=== PATIENT | male | born 1955 | race American Indian/Alaskan Native ===

== ENCOUNTER 2019-08-01 19:27 | Inpatient (IN) | payer SELFPAY ==
--- NOTE | 2019-08-01 19:35 | Consultation ---
History of Present Illness Consult date: 08/01/19 History of present illness: 63 y/o man presents with right sided weakness and speech difficulty (expressive aphasia). Last reported well at 1830 as per at bedside. Emergent telestroke consult requested. CT head reviewed and case discussed with ED attending (Dr. Kenney) at the bedside. He does not take any meds. Patient's states the patient hasn't seen a physician "for a long time." Verbal Consent to tPA: by at 1945 I have explained to the patient/family the nature of the patients condition, the use of tPA fibrinolytic agent, and the benefits to be reasonably expected compared with alternative approaches. I have discussed the likelihood of major risks or complications of this procedure including (if applicable) but not limited to loss of limb function, brain damage, paralysis, hemorrhage, infection, complications from transfusion of blood components, drug reactions, blood clots and loss of life. I have also indicated that with any procedure there is always the possibility of an unexpected complication. I have explained the risks which include: , Stroke or permanent neurologic injury (paralysis, coma, etc). I have discussed the likelihood of major risks or complications of this procedure including (if applicable) but not limited to loss of limb function, brain damage, paralysis, hemorrhage, infection, complications from transfusion of blood components, drug reactions, blood clots and loss of life. I have also indicated that with any procedure there is always the possibility of an unexpected complication. I have the explain the risks which include: Worsening of stroke symptoms from swelling or bleeding in the brain Bleeding in other parts of the body Need for blood transfusions to replace blood or clotting factors Allergic reaction to medications Other unexpected complications All questions were answered and the patient or family expressed understanding of the treatment plan and consent to the procedure. Medications and Allergies Allergies Allergy/AdvReac Type Severity Reaction Status Date / Time No Known Allergies Allergy Unverified 08/01/19 19:30 - Level of Consciousness 1a. Level of Consciousness: alert/keenly responsive - LOC Questions 1b. LOC Questions: answers both correctly - LOC Command 1c. LOC Commands: performs tasks correctly - Best Gaze 2. Best Gaze: normal - Visual 3. Visual: no visual loss - Facial Palsy 4. Facial Palsy: normal symmetrical movement - Motor Arm 5a. Motor Arm Left: no drift 5b. Motor Arm Right: drift - Motor Leg 6a. Motor Leg Left: no drift 6b. Motor Leg Right: no movement - Limb Ataxia 7. Limb Ataxia: absent - Sensory 8. Sensory: severe/total sensory loss - Best Language 9. Best Language: mild/moderate aphasia - Dysarthria 10. Dysarthria: mild/moderate dysarthria - Extinction and Inattention 11. Extinction/Inattention: no abnormality - Scoring Total Score: 9 Stroke Severity: Moderate Stroke Assessment and Plan [facility] Tele[facility]urology Consult Services Impression: Stroke Differential Diagnosis: 1. Cardioembolic stroke 2. Small vessel disease/lacune 3. Thromboembolic, dxtptn-hb-zecegh mechanism 4. Hypercoagulable state-related infarct 5. Thrombotic mechanism, large artery disease 6. Transient ischemic attack Comments: Last known well: 1829 Door time:1926 [facility] contacted: 1923 [facility] at bedside: 1926 NIHSS assessment time:1926 TPA ordered at 1950 BP before TPA: left 129/74, right 125/73 Needle time:2004 Discussion: Our recommendations are outlined below. Recommendations: STAT CTA head/neck to evaluate for LVO and possible thrombectomy Admit to ICU s/p TPA for Neurochecks, BP control and repeat CT head in 24 hours s/p TPA as per protocol PT/OT/ST DVT prophylaxis Follow up with Neurology for further testing/evaluation Medical Decision Making: - Extensive number of diagnosis or management options are considered above. - Extensive amount of complex data reviewed. - High risk of complication and/or morbidity or mortality are associated with differential diagnostic considerations above. - There may be uncertain outcome and increased probability of prolonged functional impairment or high probability of severe prolonged functional impairment associated with some of these differential diagnosis. Medical Data Reviewed: 1.Data reviewed include clinical labs, radiology, Medical Tests; 2.Tests results discussed w/performing or interpreting physician; 3.Obtaining/reviewing old medical records; 4.Obtaining case history from another source; 5.Independent review of image, tracing or specimen.
[2019-08-01] MEDS ORDERED: ALTEPLASE 100 MG INJ KIT IV ONE ×2 (19:48)
[2019-08-01] MEDS ORDERED: SODIUM CHLORIDE 0.9% 50 ML IVPB IV ONE (19:48)
--- NOTE | 2019-08-01 20:01 | Cat Scan Report ---
CT HEAD WITHOUT CONTRAST INDICATION / CLINICAL INFORMATION: MAIN: STROKE ALERT. RT SIDED WEAKNESS. [phone]. TECHNIQUE: All CT scans at this location are performed using CT dose reduction for ALARA by means of automated e xposure control. COMPARISON: None available. FINDINGS: HEMORRHAGE: No evidence of intracranial hemorrhage or extra-axial fluid collection. EXTRA-AXIAL SPACES: Cortical sulci, sylvian fissures and basilar cisterns have an unremarkable appear ance. VENTRICULAR SYSTEM: The ventricular system is of normal size and configuration. CEREBRAL PARENCHYMA: No areas of abnormal brain parenchymal attenuation are identified. There is no i ndication of recent infarction. MIDLINE SHIFT OR HERNIATION: There is no mass effect. CEREBELLUM / BRAINSTEM: Brainstem and cerebellum have an unremarkable appearance. INTRACRANIAL VESSELS: Calcified atherosclerotic plaque is seen along the course of the cavernous segm ents of both internal carotid arteries. ORBITS: visualized portions of the orbits have an unremarkable appearance. SOFT TISSUES of HEAD: No significant abnormality. CALVARIUM: Evaluation of bone windows reveals no abnormalities. PARANASAL SINUSES / MASTOID AIR CELLS: Inflammatory mucosal disease is observed in the visualized por tions of the left maxillary sinus. Paranasal sinuses are otherwise free from inflammatory mucosal dis ease. Mastoid air cells are normally pneumatized. IMPRESSION: 1. No acute intracranial abnormality. Code stroke patient: I called a report of this study to Dr. Kenney at the [facility] emergency depar tment at about 1852 Central standard time. Signer Name: Joshua Warner MD Signed: 08/01/2019 7:56 PM Workstation Name: [id number]
[2019-08-01 20:07] LABS: Basophils % (Auto) 0.4 % (0.0-1.8); Eosinophils # (Auto) 0.2 K/mm3 (0.0-0.4); Hematocrit 41.8 % (35.5-45.6); Hemoglobin 14.3 gm/dl (11.8-15.2); Lymphocytes # (Auto) 2.8 K/mm3 (1.2-5.4); Lymphocytes % (Auto) 48.9 % (13.4-35.0); Mean Corpuscular HGB Conc 34 % (32-34); Mean Corpuscular Volume 95 fl (84-94); Monocytes # (Auto) 0.4 K/mm3 (0.0-0.8); Monocytes % (Auto) 7.3 % (0.0-7.3); Red Blood Count 4.39 M/mm3 (3.65-5.03)
[2019-08-01 20:21] LABS: Partial Thromboplastin Time 21.1 Sec. (24.2-36.6)
[2019-08-01 20:27] LABS: BUN/Creatinine Ratio 7; Blood Urea Nitrogen 5 mg/dL (9-20); Calcium 8.4 mg/dL (8.4-10.2); Hemolysis Index 75
[2019-08-01 20:29] LABS: INR 1.05 (0.87-1.13)
[2019-08-01 20:30] LABS: Platelet Count 217 K/mm3 (140-440)
[2019-08-01] MEDS ORDERED: SODIUM CHLORIDE 0.9% 1000 ML 1,000 ML IV ONE (20:35)
--- NOTE | 2019-08-01 21:09 | Emergency Department Report ---
ED General Adult HPI - General Chief complaint: Neuro Symptoms/Deficit Stated complaint: POSS CVA Time Seen by Provider: 08/01/19 19:50 Source: family, EMS Mode of arrival: Stretcher Limitations: Altered Mental Status, Physical Limitation - History of Present Illness Initial comments: Patient is a 63-year-old -[place] male who has no known past medical history who is presenting with right-sided arm and leg weakness. Patient also has issues with speaking. This occurred while patient was sitting watching football approximately one hour ago. Patient denies any cough cold congestion fevers chills nausea vomiting at this time. Severity scale (0 -10): 0 Associated Symptoms: confusion. denies: chest pain, cough, diaphoresis, fever/chills, headaches, loss of appetite, malaise, nausea/vomiting, rash, shortness of breath, syncope - Related Data Allergies Allergy/AdvReac Type Severity Reaction Status Date / Time No Known Allergies Allergy Unverified 08/01/19 19:30 ED Review of Systems ROS: Stated complaint: POSS CVA Other details as noted in HPI Comment: All other systems reviewed and negative ED Past Medical Hx - Past Medical History Previous Medical History?: No - Surgical History Past Surgical History?: No - Social History Smoking Status: Current Every Day Smoker ED Physical Exam - General Limitations: Altered Mental Status, Physical Limitation General appearance: alert, in no apparent distress - Head Head exam: Present: atraumatic, normocephalic - Eye Eye exam: Present: normal appearance, PERRL, EOMI - ENT ENT exam: Present: mucous membranes moist - Neck Neck exam: Present: normal inspection - Respiratory Respiratory exam: Present: normal lung sounds bilaterally. Absent: respiratory distress, wheezes, rales, rhonchi - Cardiovascular Cardiovascular Exam: Present: regular rate, normal rhythm, normal heart sounds. Absent: systolic murmur, diastolic murmur, rubs, gallop - GI/Abdominal GI/Abdominal exam: Present: soft, normal bowel sounds. Absent: distended, tenderness, guarding, rebound, rigid - Rectal Rectal exam: Present: deferred - Extremities Exam Extremities exam: Present: normal inspection - Back Exam Back exam: Present: normal inspection - Neurological Exam Neurological exam: Present: alert, altered, motor sensory deficit, other - Expanded Neurological Exam Expanded Neurological exam: Present: expressive aphasia Patient oriented to: Present: person, place, time Cranial nerves: EOM's Intact: Normal, Gag Reflex: Normal Best Eye Response (Robert): (4) open spontaneously Best Motor Response (Robert): (6) obeys commands Best Verbal Response (Robert): (5) oriented Robert Total: 15 - Psychiatric Psychiatric exam: Present: normal affect, normal mood - Skin Skin exam: Present: warm, dry, intact, normal color. Absent: rash ED Course Vital Signs 08/01/19 08/01/19 08/01/19 19:30 19:43 19:45 Temperature 98.1 F Pulse Rate 81 79 Pulse Rate [ Right Arm] Respiratory 21 23 Rate Respiratory Rate [Right Arm ] Blood Pressure 129/74 129/74 Blood Pressure [Right Arm] O2 Sat by Pulse 91 89 88 Oximetry O2 Sat by Pulse Oximetry [ Right Arm] 08/01/19 08/01/19 08/01/19 20:00 20:05 20:06 Temperature Pulse Rate 74 70 70 Pulse Rate [ Right Arm] Respiratory 13 Rate Respiratory Rate [Right Arm ] Blood Pressure 125/78 122/70 122/77 Blood Pressure [Right Arm] O2 Sat by Pulse 94 Oximetry O2 Sat by Pulse Oximetry [ Right Arm] 08/01/19 08/01/19 08/01/19 20:20 20:25 20:31 Temperature Pulse Rate 80 87 Pulse Rate [ 72 Right Arm] Respiratory 18 13 Rate Respiratory 20 Rate [Right Arm ] Blood Pressure 125/77 168/95 Blood Pressure 126/76 [Right Arm] O2 Sat by Pulse 90 92 Oximetry O2 Sat by Pulse 96 Oximetry [ Right Arm] 08/01/19 08/01/19 08/01/19 20:35 20:45 20:50 Temperature Pulse Rate 84 Pulse Rate [ 87 81 Right Arm] Respiratory 23 Rate Respiratory 20 20 Rate [Right Arm ] Blood Pressure 140/83 Blood Pressure 168/95 140/83 [Right Arm] O2 Sat by Pulse 96 Oximetry O2 Sat by Pulse 96 96 Oximetry [ Right Arm] 08/01/19 21:05 Temperature Pulse Rate Pulse Rate [ 82 Right Arm] Respiratory Rate Respiratory 20 Rate [Right Arm ] Blood Pressure Blood Pressure 131/86 [Right Arm] O2 Sat by Pulse Oximetry O2 Sat by Pulse 96 Oximetry [ Right Arm] ED Medical Decision Making - Lab Data Result diagrams: 08/01/19 19:53 08/01/19 19:53 - Level of Consciousness 1a. Level of Consciousness: alert/keenly responsive - LOC Questions 1b. LOC Questions: answers both correctly - LOC Command 1c. LOC Commands: performs tasks correctly - Best Gaze 2. Best Gaze: normal - Visual 3. Visual: no visual loss - Facial Palsy 4. Facial Palsy: normal symmetrical movement - Motor Arm 5a. Motor Arm Left: no drift 5b. Motor Arm Right: drift - Motor Leg 6a. Motor Leg Left: no drift 6b. Motor Leg Right: no movement - Limb Ataxia 7. Limb Ataxia: absent - Sensory 8. Sensory: severe/total sensory loss - Best Language 9. Best Language: mild/moderate aphasia - Dysarthria 10. Dysarthria: mild/moderate dysarthria - Extinction and Inattention 11. Extinction/Inattention: no abnormality - Scoring Total Score: 9 Stroke Severity: Moderate Stroke - EKG Data EKG shows normal: sinus rhythm, axis, intervals, QRS complexes, ST-T waves Rate: normal - EKG Data Interpretation: normal EKG (except for a left anterior fascicular block) - Radiology Data [facility] [address] [place] [address] Cat Scan Report Signed Patient: JULIÁN KELLEY MR#: [id number] : 1955 Acct:[id number] Age/Sex: 63 / M ADM Date: 08/01/19 Loc: ED Attending Dr: Ordering Physician: JANNET KENNEY MD Date of Service: 08/01/19 Procedure(s): CT head/brain wo con Accession Number(s): [id number] cc: JANNET KENNEY MD CT HEAD WITHOUT CONTRAST INDICATION / CLINICAL INFORMATION: MAIN: STROKE ALERT. RT SIDED WEAKNESS. [phone]. TECHNIQUE: All CT scans at this location are performed using CT dose reduction for ALARA by means of automated exposure control. COMPARISON: None available. FINDINGS: HEMORRHAGE: No evidence of intracranial hemorrhage or extra-axial fluid collection. EXTRA-AXIAL SPACES: Cortical sulci, sylvian fissures and basilar cisterns have an unremarkable appearance. VENTRICULAR SYSTEM: The ventricular system is of normal size and configuration. CEREBRAL PARENCHYMA: No areas of abnormal brain parenchymal attenuation are identified. There is no indication of recent infarction. MIDLINE SHIFT OR HERNIATION: There is no mass effect. CEREBELLUM / BRAINSTEM: Brainstem and cerebellum have an unremarkable appearance. INTRACRANIAL VESSELS: Calcified atherosclerotic plaque is seen along the course of the cavernous segments of both internal carotid arteries. ORBITS: visualized portions of the orbits have an unremarkable appearance. SOFT TISSUES of HEAD: No significant abnormality. CALVARIUM: Evaluation of bone windows reveals no abnormalities. PARANASAL SINUSES / MASTOID AIR CELLS: Inflammatory mucosal disease is observed in the visualized portions of the left maxillary sinus. Paranasal sinuses are otherwise free from inflammatory mucosal disease. Mastoid air cells are normally pneumatized. IMPRESSION: 1. No acute intracranial abnormality. Code stroke patient: I called a report of this study to Dr. Kenney at the [facility] emergency department at about 1852 Central standard time. Signer Name: Joshua Warner MD Signed: 08/01/2019 7:56 PM Workstation Name: [id number] Transcribed By: Dictated By: Joshua Warner MD Electronically Authenticated By: Joshua Warner MD Signed Date/Time: 08/01/191955 - Medical Decision Making Patient is a 63-year-old male who is having a presumed stroke. Patient is having difficulty moving the right upper and lower extremity. Patient did receive TPA under guidance of teleneurology. At the time of admission the patient is able to raise the right upper extremity was still having difficulty with the right lower extremity. Critical Care Time: Yes (30) Critical care attestation.: If time is entered above; I have spent that time in minutes in the direct care of this critically ill patient, excluding procedure time. ED Disposition Clinical Impression: CVA (cerebral vascular accident) Qualifiers: CVA mechanism: unspecified Qualified Code(s): I63.9 - Cerebral infarction, unspecified Disposition: -09 OP ADMIT IP TO THIS HOSP Is pt being admited?: Yes Does the pt Need Aspirin: Yes Condition: Serious Time of Disposition: 21:18
--- NOTE | 2019-08-01 21:14 | Cat Scan Report ---
CTA head with intravenous contrast CLINICAL HISTORY: stroke TECHNIQUE: 0.625 mm thick contiguous axial scans were obtained from the skull base to the skull vertex during ra pid bolus administration of intravenous contrast material. Multiplanar reconstructions were produced in the coronal and sagittal planes. In addition 3 plane MIP instructions were produced and reviewed f or this report. The axial source images and reconstructed images were reviewed for this report. All CT scans at this location are performed using CT dose reduction for ALARA by means of automated e xposure control. FINDINGS: Left internal carotid artery: Calcified atherosclerotic plaque is observed along the cavernous segmen ts of the LICA with no indication of associated stenosis. Evaluation of the M1 segment of the left mi ddle cerebral artery is remarkable for the presence of a proximal M1 aneurysm measuring about 3 to 4 mm in greatest dimension. There is no filling defect within the M1 segment or sylvian branches of the middle cerebral artery. There is no indication of thromboembolic lesion. Evaluation of the left ante rior cerebral artery reveals no abnormality. Right internal carotid artery: Mildly calcified atherosclerotic plaque is observed along the cavernou s segment of the R ICA with no indication of stenosis. The M1 and A1 segments of the middle and anter ior cerebral arteries respectively have an unremarkable appearance. There is no evidence of intracran ial stenosis or thromboembolic lesion. Posterior circulation: The right vertebral artery is dominant. Both vertebral arteries contribute to the basilar artery origin. Basilar artery is of normal size and configuration. Right larger than left posterior communicating arteries are demonstrated. [place] OF [place]: This patient has an intact [place] of [place]. IMPRESSION: 1. 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 2. No indication of thromboembolic lesion. I discussed the findings of this study with Dr. Anne, stroke tele neurology, at about 1912 Central sta ndard time. CONTRAST DOSE REPORT: Omnipaque 350: 100 ml administered intravenously. Signer Name: Joshua Warner MD Signed: 08/01/2019 9:09 PM Workstation Name: [id number]
[2019-08-01] MEDS ORDERED: ASPIRIN 81 MG TAB CHEW PO ONE (21:18)
--- NOTE | 2019-08-01 21:25 | Cat Scan Report ---
CTA neck without and with intravenous contrast material, with multiplanar reconstruction and with thr ee-dimensional reconstructions produced utilizing an independent workstation. CLINICAL HISTORY: stroke and right hemiparesis. TECHNIQUE: Following acquisition of a timing bolus 0.625 mm thick contiguous axial scans were obtained from aort ic arch to the skull base during rapid bolus intravenous contrast infusion. In addition to evaluation of axial source images multiplanar reconstructions were produced and reviewed for this report. 3 saad ne MIP reconstructions were produced and reviewed. FINDINGS: Risk aorta: No abnormalities are seen at the origins of the great vessels. The brachiocephalic artery has a normal appearance. No abnormalities are seen along the course of the left subclavian artery. Right carotid artery: Right common carotid artery has an unremarkable appearance. Evaluation of the c arotid bifurcations remarkable for a combination of calcified and soft plaque at the carotid bifurcat ion extending up into the proximal R ICA. There is no associated stenosis. Cervical segments of the R ICA have an unremarkable appearance. Left carotid artery: Left common carotid artery has an unremarkable appearance. Evaluation of the car otid bifurcation reveals combination of calcified and soft atherosclerotic plaque with no indication of stenosis. Cervical segments of the LICA have a normal appearance. Posterior circulation: Right vertebral artery is dominant. No abnormalities are seen along the course of the vertebral arteries. Both vertebral arteries contribute to the basilar artery origin. Evaluation of the dural sinuses reveals no indication of dural sinus thrombosis. 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 The degree of stenosis, if any, is determined utilizing NASCET like criteria. In this case there is no indication of hemodynamically significant stenosis. Evaluation of the nonvascular soft tissue structures reveal no abnormality. Normal-sized lymph nodes are seen in several locations. There is no indication of cervical lymphadenopathy. No abnormalities a re seen along the course of the airway. Visualized portions of the parotid glands and the submandibul ar salivary glands have a normal appearance. Patient appears to be status post right hemithyroidectom y. The left lobe of the thyroid gland has an unremarkable appearance. Evaluation of the paranasal sin uses is remarkable for inflammatory mucosal disease in the left maxillary sinus. Evaluation of the jesu ng apices reveals no evidence of lung nodule or infiltrate. Bullous changes are seen at both lung api ashlie.. Evaluation of the cervical spine revealed no significant abnormalities. IMPRESSION: 1. Atherosclerotic changes are present at both carotid bifurcations but there is no indication of ass ociated stenosis. Contrast dose report: Omnipaque 350: 100 ml, administered intravenously All CT examinations performed at this facility utilize modulated dose reduction, iterative reconstruc tion or weight-based dosing, as appropriate, to obtain a radiation dose which is as low as can reason ably be achieved. Signer Name: Joshua Warner MD Signed: 08/01/2019 9:21 PM Workstation Name: [id number]
[2019-08-01] MEDS ORDERED: METOCLOPRAMIDE 10 MG TAB PO PRN (22:29)
[2019-08-01] MEDS ORDERED: ACETAMINOPHEN 325 MG TAB PO PRN (22:29)
[2019-08-01] MEDS ORDERED: MAGNESIUM HYDROXIDE (MOM) ORAL LIQD UDC PO PRN (22:29)
[2019-08-01] MEDS ORDERED: PROMETHAZINE 25 MG RECT SUPP PR PRN (22:29)
[2019-08-01] MEDS ORDERED: oxyCODONE /ACETAMINOPHEN 5-325MG TAB PO PRN (22:29)
[2019-08-01] MEDS ORDERED: ONDANSETRON 4 MG/2 ML INJ IV PRN (22:29)
--- NOTE | 2019-08-01 22:41 | History and Physical Report ---
History of Present Illness Date of examination: 08/01/19 Date of admission: 08/01/19 21:19 Chief complaint: RT arm weakness History of present illness: Patient is a 63-year-old -[place] male with history of polysubstance abuse (tobacco and alcohol) who was brought to the ED via EMS on account of right arm weakness which started at about 4 PM today. Of note, history was obtained from both the patient and who was at his bedside. She stated that while they were at home watching TV, she suddenly noticed that her was weak on his right arm and was leaning towards his right side. At the same time, she also noticed that he was unable to speak. She then called 911. No reported facial droop or preceding trauma. Patient admits to headaches. He denies chest pain, shortness of breath, palpitation, cough, fever, chills, nausea, vomiting, lightheadedness, syncope or loss of consciousness. In the ED, code stroke was called and patient received TPA at 20:06. Past History Past Medical History: other (polysubstance abuse (tobacco and alcohol) ) Past Surgical History: No surgical history Social history: smoking (patient has 40 year history of cigarette smoking. He currently smokes half pack per day. ), alcohol abuse (he's a daily alcohol user. He drinks about 2 bottles of 60 oz of beer per day. ), other (he has 40 years history of marijuana use. He denies other illicit or iv drug use) Family history: diabetes (mother, sister), hypertension (mother) Medications and Allergies Allergies Allergy/AdvReac Type Severity Reaction Status Date / Time No Known Allergies Allergy Unverified 08/01/19 19:30 Active Meds: Active Medications Acetaminophen (Tylenol) 650 mg PO Q4H PRN PRN Reason: Pain, Mild (1-3) Atorvastatin Calcium (Lipitor) 40 mg PO QHS FCO Bisacodyl (Dulcolax) 10 mg FL QDAY PRN PRN Reason: Constipation Magnesium Hydroxide (Milk Of Magnesia) 30 ml PO Q4H PRN PRN Reason: Constipation Metoclopramide HCl (Reglan) 10 mg PO Q6H PRN PRN Reason: Nausea And Vomiting Ondansetron HCl (Zofran) 4 mg IV Q8H PRN PRN Reason: Nausea And Vomiting Oxycodone/Acetaminophen (Percocet 5/325) 1 tab PO Q6H PRN PRN Reason: Pain, Moderate (4-6) Promethazine HCl (Phenergan) 25 mg FL Q6H PRN PRN Reason: Nausea And Vomiting Sodium Chloride (Sodium Chloride Flush Syringe 10 Ml) 10 ml INJ PRN PRN PRN Reason: LINE FLUSH Review of Systems All systems: negative (all other systems reviewed with the patient and are negative unless otherwise stated above) Exam - Constitutional Vitals: Temp Pulse Resp BP Pulse Ox 98.1 F 81 36 H 157/95 96 08/01/19 19:30 08/01/19 22:15 08/01/19 22:15 08/01/19 22:15 08/01/19 22:15 General appearance: Present: no acute distress, well-nourished - EENT Eyes: Present: PERRL, EOM intact ENT: hearing intact, clear oral mucosa - Neck Neck: Present: supple, normal ROM - Respiratory Respiratory effort: normal Respiratory: bilateral: CTA - Cardiovascular Rhythm: regular Heart Sounds: Present: S1 & S2. Absent: rub, click - Extremities Extremities: pulses symmetrical, No edema Peripheral Pulses: within normal limits - Abdominal General gastrointestinal: Present: soft, non-tender, non-distended, normal bowel sounds Male genitourinary: Present: deferred - Rectal Rectal Exam: deferred - Integumentary Integumentary: Present: clear, warm, dry - Musculoskeletal Musculoskeletal: right sided weakness - Psychiatric Psychiatric: appropriate mood/affect, intact judgment & insight - Neurologic Neurologic: focal deficits (right side), other (gait unexamined) Results - Labs CBC & Chem 7: 08/01/19 19:53 08/01/19 19:53 Labs: Laboratory Last Values WBC 5.8 K/mm3 (4.5-11.0) 08/01/19 19:53 RBC 4.39 M/mm3 (3.65-5.03) 08/01/19 19:53 Hgb 14.3 gm/dl (11.8-15.2) 08/01/19 19:53 Hct 41.8 % (35.5-45.6) 08/01/19 19:53 MCV 95 fl (84-94) H 08/01/19 19:53 MCH 33 pg (28-32) H 08/01/19 19:53 MCHC 34 % (32-34) 08/01/19 19:53 RDW 14.0 % (13.2-15.2) 08/01/19 19:53 Plt Count 217 K/mm3 (140-440) 08/01/19 19:53 Lymph % (Auto) 48.9 % (13.4-35.0) H 08/01/19 19:53 [place] % (Auto) 7.3 % (0.0-7.3) 08/01/19 19:53 Eos % (Auto) 3.0 % (0.0-4.3) 08/01/19 19:53 Baso % (Auto) 0.4 % (0.0-1.8) 08/01/19 19:53 Lymph # 2.8 K/mm3 (1.2-5.4) 08/01/19 19:53 [place] # 0.4 K/mm3 (0.0-0.8) 08/01/19 19:53 Eos # 0.2 K/mm3 (0.0-0.4) 08/01/19 19:53 Baso # 0.0 K/mm3 (0.0-0.1) 08/01/19 19:53 Seg Neutrophils % 40.4 % (40.0-70.0) 08/01/19 19:53 Seg Neutrophils # 2.4 K/mm3 (1.8-7.7) 08/01/19 19:53 PT 13.4 Sec. (12.2-14.9) 08/01/19 19:53 INR 1.05 (0.87-1.13) 08/01/19 19:53 APTT 21.1 Sec. (24.2-36.6) L 08/01/19 19:53 13.6 Sec. (15.1-19.6) L 08/01/19 19:53 Sodium 132 mmol/L (137-145) L 08/01/19 19:53 Potassium 4.2 mmol/L (3.6-5.0) 08/01/19 19:53 Chloride 95.8 mmol/L (98-107) L 08/01/19 19:53 Carbon Dioxide 19 mmol/L (22-30) L 08/01/19 19:53 21 mmol/L 08/01/19 19:53 BUN 5 mg/dL (9-20) L 08/01/19 19:53 0.7 mg/dL (0.8-1.5) L 08/01/19 19:53 Estimated GFR > 60 ml/min 08/01/19 19:53 7 % 08/01/19 19:53 Glucose 98 mg/dL (75-100) 08/01/19 19:53 Calcium 8.4 mg/dL (8.4-10.2) 08/01/19 19:53 < 0.010 ng/mL (0.00-0.029) 08/01/19 19:53 Assessment and Plan Assessment and plan: Acute ischemic stroke with right hemiparesis -Status post TPA at 20:06 on 08/01 -On stroke protocol -CT head negative acute intracranial abnormality -CTA head showed proximal NM aneurysm without indication for thromboembolic lesion. CTA neck reported as negative for significant stenosis -Follow up MRI brain, echocardiogram, lipid panel and hba1c -Consult neurology in a.m. Mild hyponatremia -On IV fluid, will monitor sodium level Metabolic acidosis -On IV fluid, will monitor bicarbonate level Polysubstance abuse (tobacco, alcohol) -Patient counseled on cessation -On alcohol withdrawal prophylaxis DVT prophylaxis with SCD Disposition: I spent 45 minutes providing critical care to this seriously ill patient who requires frequent reassessments of his neurological status.
[2019-08-01] MEDS ORDERED: LORazepam 2 MG/ML VIAL IV PRN (23:21)
[2019-08-01] MEDS ORDERED: SODIUM CHLORIDE 0.9% 1000 ML 1,000 ML IV SCH (23:45)
[2019-08-02] MEDS ORDERED: AMINOCAPROIC ACID 5,000 MG in SODIUM CHLORIDE 0.9% 100 ML IV ONE (02:38)
--- NOTE | 2019-08-02 02:42 | Cat Scan Report ---
CT HEAD WITHOUT CONTRAST 08/02/19 at 2:08 AM INDICATION / CLINICAL INFORMATION: change in mentation. Change in mental status status post TPA. TECHNIQUE: All CT scans at this location are performed using CT dose reduction for ALARA by means of automated e xposure control. COMPARISON: CT dated 08/01/19 FINDINGS: HEMORRHAGE: Interval development of large left frontal parenchymal hematoma measuring about 5 x 5 cm. Hematoma crosses the midline below the falx. There is associated subarachnoid hemorrhage at the vert ex. There is also intraventricular hemorrhage within the lateral, 3rd, and 4th ventricles. EXTRA-AXIAL SPACES: Sulci are effaced due to mass effect. VENTRICULAR SYSTEM: Left frontal horn is compressed by the hematoma. Interval enlargement of both lat eral ventricles. CEREBRAL PARENCHYMA: Mild left frontal cerebral edema. MIDLINE SHIFT OR HERNIATION: 1 cm left to right shift due to mass effect from left frontal hematoma. CEREBELLUM / BRAINSTEM: No significant abnormality. ORBITS: Normal as visualized. SOFT TISSUES of HEAD: No significant abnormality. CALVARIUM: No significant abnormality. PARANASAL SINUSES / MASTOID AIR CELLS: Small air-fluid level in the left maxillary sinus is unchanged . ADDITIONAL FINDINGS: None. IMPRESSION: 1. Interval development of large left frontal parenchymal hematoma with associated subarachnoid hemor rhage and intraventricular hemorrhage. 2. Moderate mass effect on the left frontal horn with about 1 cm of [id number] shift. 3. Mild enlargement of lateral ventricles. CRITICAL RESULT: Time of Discovery (SUPERVISOR [employer]ING/CDT): 1:30 AM Time of Communication (SUPERVIS[employer] LE[employer]ING/CDT): 1:34 AM Licensed Practitioner Receiving Report: Saba Joy in the ED Read Back Performed: Yes. Signer Name: Maria Ines Stringer MD Signed: 08/02/2019 2:38 AM Workstation Name: [id number]
[2019-08-02] MEDS ORDERED: ETOMIDATE 20 MG/10 ML INJ IV ONE (03:00)
[2019-08-02] MEDS ORDERED: SUCCINYLCHOLINE CHLORIDE 200 MG/10 ML INJ MDV ONE (03:00)
[2019-08-02] MEDS ORDERED: LIDOCAINE PF 100 MG/5 ML (CARDIAC SYRINGE) IV ONE (03:00)
[2019-08-02] MEDS ORDERED: DOPamine/D5W 800 MG/250 ML 800 MG/250 ML BAG IV SCH (03:00)
[2019-08-02] MEDS ORDERED: LIP THERAPY VASELINE TP PRN ×2 (03:05→03:09)
[2019-08-02] MEDS ORDERED: MINERAL OIL/PETROLATUM, WHITE OPHTH OINT 3.5 GM OU PRN ×2 (03:05→03:09)
--- NOTE | 2019-08-02 03:13 | Event Note ---
ED MD Intubation note Requested by Hospitalist Saba Ng, to intubate pt in preparation for transport to outside hospital. Pt was medicated with Etomidate 20mg iv, Succs 100mg iv and Lidocaine 100mg IV. Pt was intubated with an 8.0 ETT. Appropriate location confirmed through direct visualization, end tidal CO2 and auscultation. Pt left in the care of Hospitalhaja Ng.
--- NOTE | 2019-08-02 03:29 | XRay Report ---
CHEST 1 VIEW 08/02/2019 3:14 AM INDICATION / CLINICAL INFORMATION: ETT placement. COMPARISON: None available. FINDINGS: SUPPORT DEVICES: ET tube has been placed 4 cm above the nguyen in expected position. HEART / MEDIASTINUM: No significant abnormality. LUNGS / PLEURA: Mild bibasilar atelectasis. No pneumothorax. ADDITIONAL FINDINGS: No significant additional findings. IMPRESSION: 1. ET tube in expected position. Signer Name: Maria Ines Stringer MD Signed: 08/02/2019 3:25 AM Workstation Name: [id number]
--- NOTE | 2019-08-02 03:54 | Discharge Summary ---
Providers - Providers Date of Admission: 08/01/19 21:19 Date of discharge: 08/02/19 Attending physician: RUSTY RIBEIRO 08/01/19 22:30 Consult to Case Management [CONS] Routine Services Needed at Discharge: Other Home Health Services Additional Physician Instructions: DISCHARGE PLANNING Occupational Therapy Evaluate and Treat [CONS] Routine Comment: Reason For Exam: Neuro deficits Physical Therapy Evaluation and Treat [CONS] Routine Comment: Reason For Exam: Neuro deficits Primary care physician: ANOOP CADENA MD Hospitalization Condition: Serious Procedures: endotracheal intubation Hospital course: Discharge diagnosis: Acute ischemic stroke with hemorrhagic conversion -Status post TPA at 20:06 on 08/01 -On stroke protocol -CT head negative acute intracranial abnormality -CTA head showed proximal MT aneurysm without indication for thromboembolic lesion. CTA neck reported as negative for significant stenosis Acute metabolic encephalopathy Acute respiratory failure with hypoxia s/p intubation Hemorrhagic shock Mild hyponatremia Metabolic acidosis Polysubstance abuse (tobacco, alcohol) Pt was admitted to the ICU. Thereafter, his mental status changed and he subsequently became unresponsive. STAT head CT scan was done which showed acute bleed. He was emergently intubated for airway protection and started on IV pressor for hypotension. Neurosurgery at [facility] was consulted and he was accepted for emergency transfer to the facility for further mgx. Prior to transfer, he received Amicar. Disposition: DC/TX-70 ANOTHER TYPE HLTHCARE Time spent for discharge: 40 minutes Core Measure Documentation - Palliative Care Palliative Care/ Comfort Measures: Not Applicable - Core Measures Any of the following diagnoses?: stroke - Stroke Discharge Requirements Statin for LDL = or >70 mg/dl on DC: Yes Anticoag for atrial fib/atrial flutter: Not Applicable Antithrombotic for ischemic stroke: No Reason for no antithrombotic on DC: Medical Contraindication Exam - Constitutional Vitals: Temp Pulse Resp BP Pulse Ox 98.1 F 98 H 30 H 162/93 97 08/01/19 22:50 08/01/19 23:00 08/01/19 23:00 08/01/19 23:00 08/01/19 23:00 Plan Follow up with: ANOOP CADENA MD [Primary Care Provider] - 7 Days
[2019-08-02 03:59] VITALS: BP 160/108
[2019-08-02] MEDS ORDERED: PROPOFOL 1,000 MG/100 ML BOTTLE IV SCH (04:00)
[2019-08-02] MEDS ORDERED: MULTIVITAMINS ,THERAPEUTIC TAB PO SCH (10:00)
[2019-08-02] MEDS ORDERED: FOLIC ACID 1 MG TAB PO SCH (10:00)
[2019-08-02] MEDS ORDERED: THIAMINE 100 MG TAB PO SCH (10:00)
== END 2019-08-02 03:45 | disposition short-term general hospital (02) | DRG 61 ==
LOC: ED 19:27 → CC1 21:19
PROVIDERS: ADMIT Internal Medicine; ATTEND Internal Medicine
PROC: 3E03317 Introduction of Other Thrombolytic into Peripheral Vein, Percutaneous Approach (ICD-10-PCS; principal; 2019-08-01)
PROC: 0BH17EZ Insertion of Endotracheal Airway into Trachea, Via Natural or Artificial Opening (ICD-10-PCS; 2019-08-02)
PROC: 5A1935Z Respiratory Ventilation, Less than 24 Consecutive Hours (ICD-10-PCS; 2019-08-02)
DX: I63.9 Cerebral infarction, unspecified (principal); G93.41 Metabolic encephalopathy; J96.01 Acute respiratory failure with hypoxia; R57.8 Other shock; I61.8 Other nontraumatic intracerebral hemorrhage; G81.91 Hemiplegia, unspecified affecting right dominant side; E87.1 Hypo-osmolality and hyponatremia; E87.2 Acidosis; R47.01 Aphasia; F17.210 Nicotine dependence, cigarettes, uncomplicated; I67.1 Cerebral aneurysm, nonruptured; F10.10 Alcohol abuse, uncomplicated
CPT/HCPCS: 36415; 70450; 70496; 70498; 71045; 80048; 82962; 84484; 85025; 85610; 85670; 85730; 87070; 87205; 93005; 93010; 94002; 94003; 96374; G0378; J0330; J1265; J2001; J2704; J2997; J7030; Q9967

== ENCOUNTER 2019-10-14 17:54 | Inpatient (IN) | payer OTHER ==
[2019-10-14 19:09] LABS: Mean Corpuscular HGB Conc 34 % (32-34); Mean Corpuscular Volume 90 fl (84-94); Platelet Count 647 K/mm3 (140-440); Red Blood Count 3.34 M/mm3 (3.65-5.03); Red Cell Distribution Width 13.4 % (13.2-15.2)
--- NOTE | 2019-10-14 19:19 | Emergency Department Report ---
HPI - General Chief Complaint: Recheck/Abnormal Lab/Rx Time Seen by Provider: 10/14/19 18:46 - HPI HPI: 64-year-old male presents to the emergency department by EMS from his [facility] with complaint of having some recent abnormal labs that are dated today. The paperwork that was sent shows elevated LFTs and an elevated white blood cell count. Patient has a past medical history of CVA with right-sided deficits and aphasia, hypertension and has a feeding tube in place. The patient shakes his head slowly when asked questions. He denies any pain or any other physical complaints at this time. ED Past Medical Hx - Past Medical History Previous Medical History?: Yes Hx Hypertension: Yes Hx CVA: Yes (Rigth side deficits) Additional medical history: Aphasia - Surgical History Additional Surgical History: feeding tube - Social History Smoking Status: Unknown if ever smoked - Medications Home Medications: Home Medications Medication Instructions Recorded Confirmed Last Taken Type Albuterol Sulfate 10/14/19 Unknown History Aspirin [Adult Aspirin] 81 mg PO 10/14/19 Unknown History Atorvastatin Calcium [Lipitor] 40 mg FEEDTUBE 10/14/19 Unknown History Magnesium Oxide 10/14/19 Unknown History Methylphenidate HCl 10/14/19 Unknown History Metoprolol [Lopressor TAB] 50 mg PO BID 10/14/19 10/14/19 Unknown History Polyethylene Glycol 3350 [Miralax 17 gm PO QDAY 10/14/19 10/14/19 Unknown History 3350] Potassium Chloride 40 10/14/19 Unknown History Thiamine [Vitamin B-1] 100 mg PO QDAY 10/14/19 10/14/19 Unknown History Vitamin D3 2,000 UNIT CHEW TAB PRN 10/14/19 Unknown History ED Review of Systems ROS: Stated complaint: ABNORMAL LABS Other details as noted in HPI Comment: All other systems reviewed and negative Constitutional: denies: fever Respiratory: denies: cough, shortness of breath Cardiovascular: denies: chest pain Gastrointestinal: denies: abdominal pain, vomiting Genitourinary: denies: dysuria, discharge Neurological: denies: headache Physical Exam - Physical Exam Vital Signs: Vital Signs 10/14/19 18:35 Temperature 97.8 F Pulse Rate 90 Respiratory 22 Rate Blood Pressure 97/58 O2 Sat by Pulse 96 Oximetry Physical Exam: GENERAL: The patient is well-developed well-nourished. HENT: Normocephalic. Atraumatic. Patient has moist mucous membranes. EYES: Extraocular motions are intact. NECK: Supple. Trachea is midline. CHEST/LUNGS: Clear to auscultation. There is no respiratory distress noted. HEART/CARDIOVASCULAR: Regular. There is no tachycardia. There is no murmur. ABDOMEN: Abdomen is soft, nontender. Patient has normal bowel sounds. There is no abdominal distention. SKIN: Skin is warm and dry. NEURO: Patient is awake but nonverbal. Right-sided hemiparesis. Patient answers questions by nodding his head. MUSCULOSKELETAL: There is no tenderness or deformity. There is no evidence of acute injury. ED Course Vital Signs 10/14/19 18:35 Temperature 97.8 F Pulse Rate 90 Respiratory 22 Rate Blood Pressure 97/58 O2 Sat by Pulse 96 Oximetry ED Medical Decision Making - Lab Data Result diagrams: 10/14/19 18:45 10/14/19 18:45 - Radiology Data Radiology results: report reviewed RIGHT UPPER QUADRANT ABDOMINAL ULTRASOUND INDICATION: abnormal LFTs. COMPARISON: No relevant prior imaging study available. FINDINGS: Pancreas: There is nonspecific prominence of the pancreatic duct, which measures 3 mm in transverse dimension. No additional significant abnormality. Liver: Normal in size with a simple appearing cyst located posteriorly along the right hepatic lobe measuring 3.7 x 4.6 x 3.0 cm. No additional significant abnormality. Gallbladder: Sludge is seen without shadowing stones, wall thickening or pericholecystic fluid. Bile ducts: No significant abnormality. Common bile duct measures 4 mm. Right kidney: No significant abnormality. Free fluid: None. Additional Findings: None. IMPRESSION: 1. Sludge in the gallbladder without sonographic evidence of cholelithiasis or acute cholecystitis. 2. Right hepatic lobe cyst as above without an additional significant sonographic abnormality of the liver. 3. Nonspecific prominence of the pancreatic duct. - Medical Decision Making This patient was sent in from his [facility] after he had some labs that showed a leukocytosis and abnormal LFTs. The AST was about 250 and AST was about 750 when checked earlier today. The repeat LFTs are 60 and 100 respectively. However the patient does have a 36,000 white count. Urinalysis s hows a urinary tract infection. Cultures were sent and the patient was started on antibiotics. Patient is afebrile. There is no lactic acidosis. Due to the previously elevated LFTs, an ultrasound was done of the abdomen that shows sludge in the gallbladder without signs of cholecystitis, a right hepatic lobe cyst and some nonspecific prominence of the pancreatic duct. The patient will be admitted to the hospital for further evaluation and treatment was excepted for admission by the hospitalist, Dr Garcia. - Differential Diagnosis Sepsis, malignancy, cholelithiasis, cholecystitis Critical Care Time: No Critical care attestation.: If time is entered above; I have spent that time in minutes in the direct care o f this critically ill patient, excluding procedure time. ED Disposition Clinical Impression: Leukocytosis, UTI (urinary tract infection), Abnormal LFTs (liver function tests) Disposition: OP ADMIT IP TO THIS HOSP Is pt being admited?: Yes Condition: Stable Time of Disposition: 21:24
[2019-10-14 19:31] LABS: Albumin 2.4 g/dL (3.9-5); Calcium 9.5 mg/dL (8.4-10.2)
[2019-10-14 19:40] LABS: Basophils % (Manual) 0 % (0.0-1.8); Eosinophils % (Manual) 0 % (0.0-4.3); Total Cells Counted 100
[2019-10-14 19:41] LABS: Platelet Estimate Consistent w Auto; RBC Morphology Normal
[2019-10-14] MEDS ORDERED: SODIUM CHLORIDE 0.9% 1000 ML 1,000 ML IV ONE ×2 (19:50→21:23)
[2019-10-14 19:52] LABS: Bacteria,Urine 4+ /HPF (Negative); Bilirubin,Urine NEG (Negative); Blood,Urine NEG (Negative); Color,Urine Amber (Yellow); Mucus,Urine 2+ /HPF
[2019-10-14] MEDS ORDERED: cefTRIAXone/NS 1 GM/50 ML 1 GM/50 ML BAG IV ONE (19:55)
[2019-10-14] MEDS ORDERED: ONDANSETRON 4 MG/2 ML INJ IV PRN (22:04)
[2019-10-14] MEDS ORDERED: MAGNESIUM HYDROXIDE (MOM) ORAL LIQD UDC PO PRN (22:04)
[2019-10-14] MEDS ORDERED: SODIUM CHLORIDE 0.9% 1000 ML 1,000 ML ONE (22:25)
--- NOTE | 2019-10-14 22:40 | History and Physical Report ---
History of Present Illness Date of examination: 10/14/19 Date of admission: 10/14/19 21:24 Chief complaint: Abnormal labs History of present illness: Patient is a 64-year-old male resident of a longterm brought into the emergency room today for further evaluation for abnormal labs. Labs were said to have been drawn today patient is said to have had elevated white counts and also abnormally elevated liver enzymes. His liver enzymes on labs done at the longterm shows ALT in the 700s and AST in the 200s. Labs drawn here in this facility showed ALT in the low 100s and AST in the 60s. History could not be gotten from patient but not his head to verbal communications. There has been no history of diarrhea, abdominal pain, fever or chills. Past History Past Medical History: stroke (Patient right-sided weakness, aphasia) Past Surgical History: Other Social history: no significant social history Family history: other (Unknown) Medications and Allergies Allergies Allergy/AdvReac Type Severity Reaction Status Date / Time No Known Allergies Allergy Unverified 08/01/19 19:30 Home Medications Medication Instructions Recorded Confirmed Last Taken Type Albuterol Sulfate 10/14/19 Unknown History Aspirin [Adult Aspirin] 81 mg PO 10/14/19 Unknown History Atorvastatin Calcium [Lipitor] 40 mg FEEDTUBE 10/14/19 Unknown History Magnesium Oxide 10/14/19 Unknown History Methylphenidate HCl 10/14/19 Unknown History Metoprolol [Lopressor TAB] 50 mg PO BID 10/14/19 10/14/19 Unknown History Polyethylene Glycol 3350 [Miralax 17 gm PO QDAY 10/14/19 10/14/19 Unknown History 3350] Potassium Chloride 40 10/14/19 Unknown History Thiamine [Vitamin B-1] 100 mg PO QDAY 10/14/19 10/14/19 Unknown History Vitamin D3 2,000 UNIT CHEW TAB PRN 10/14/19 Unknown History Active Meds: Active Medications Acetaminophen (Tylenol) 650 mg PO Q4H PRN PRN Reason: Pain MILD(1-3)/Fever >100.5/MARK Heparin Sodium (Porcine) (Heparin) 5,000 unit SUB-Q Q8HR FCO Sodium Chloride (Nacl 0.9% 1000 Ml) 1,000 mls @ 125 mls/hr IV DIRECT FCO Ceftriaxone Sodium (Rocephin/Ns 1 Gm/50 Ml) 1 gm in 50 mls @ 100 mls/hr IV Q24HR FCO; Protocol Magnesium Hydroxide (Milk Of Magnesia) 30 ml PO Q4H PRN PRN Reason: Constipation Morphine Sulfate (Morphine) 2 mg IV Q4H PRN PRN Reason: Pain, Moderate (4-6) Ondansetron HCl (Zofran) 4 mg IV Q8H PRN PRN Reason: Nausea And Vomiting Sodium Chloride (Sodium Chloride Flush Syringe 10 Ml) 10 ml IV BID FCO Sodium Chloride (Sodium Chloride Flush Syringe 10 Ml) 10 ml IV PRN PRN PRN Reason: LINE FLUSH Review of Systems ROS unobtainable: due to mental status Exam - Constitutional Vitals: Temp Pulse Resp BP Pulse Ox 97.8 F 96 H 31 H 110/64 98 10/14/19 18:35 10/14/19 21:30 10/14/19 21:30 10/14/19 21:30 10/14/19 20:00 General appearance: Present: no acute distress, cachectic, other (Dry oral mucosa) - EENT Eyes: Present: PERRL, EOM intact ENT: hearing intact, clear oral mucosa, dentition normal - Neck Neck: Present: supple, normal ROM - Respiratory Respiratory effort: normal Respiratory: bilateral: CTA - Cardiovascular Rhythm: regular Heart Sounds: Present: S1 & S2 - Extremities Extremities: no ischemia, pulses intact, No edema Peripheral Pulses: within normal limits - Abdominal General gastrointestinal: Present: soft, non-tender, non-distended, other (PEG tube in place) - Integumentary Integumentary: Present: clear, warm, dry - Musculoskeletal Musculoskeletal: right sided weakness - Psychiatric Psychiatric: cooperative, other (Nonverbal) - Neurologic Neurologic: CNII-XII intact, other (Nonverbal) Results - Labs CBC & Chem 7: 10/14/19 18:45 10/14/19 18:45 Labs: Abnormal lab results 10/14/19 10/14/19 10/14/19 Range/Units 18:45 18:45 19:35 WBC 36.7 H (4.5-11.0) K/mm3 RBC 3.34 L (3.65-5.03) M/mm3 Hgb 10.0 L (11.8-15.2) gm/dl Hct 30.0 L (35.5-45.6) % Plt Count 647 H (140-440) K/mm3 Seg Neuts % (Manual) 89.0 H (40.0-70.0) % Lymphocytes % (Manual) 5.0 L (13.4-35.0) % Seg Neutrophils # Man 32.7 H (1.8-7.7) K/mm3 Monocytes # (Manual) 2.2 H (0.0-0.8) K/mm3 Sodium 135 L (137-145) mmol/L Chloride 96.5 L (98-107) mmol/L Carbon Dioxide 21 L (22-30) mmol/L BUN 49 H (9-20) mg/dL Glucose 145 H (75-100) mg/dL AST 62 H (5-40) units/L ALT 101 H (7-56) units/L Alkaline Phosphatase 269 H (35-129) units/L Albumin 2.4 L (3.9-5) g/dL Urine WBC (Auto) 157.0 H (0.0-6.0) /HPF Assessment and Plan - Patient Problems (1) Abnormal LFTs (liver function tests) Current Visit: Yes Status: Acute Plan to address problem: Etiology is unclear. However will request gastroenterology evaluation and recommendation. Ultrasound of the gallbladder shows sludge. We will monitor liver enzymes. (2) Leukocytosis Current Visit: Yes Status: Acute Plan to address problem: Possibly secondary to UTI. Will monitor CBC. (3) UTI (urinary tract infection) Current Visit: Yes Status: Acute Plan to address problem: Patient placed on empiric IV antibiotics. He has been started on IV Rocephin. Will await urine culture results. (4) CVA (cerebral vascular accident) Current Visit: No Status: Acute Plan to address problem: Patient has residual right-sided weakness. (5) DVT prophylaxis Current Visit: Yes Status: Acute Plan to address problem: He has been placed on subcutaneous heparin. (6) Full code status Current Visit: Yes Status: Acute
--- NOTE | 2019-10-14 22:48 | Ultrasound Report ---
RIGHT UPPER QUADRANT ABDOMINAL ULTRASOUND INDICATION: abnormal LFTs. COMPARISON: No relevant prior imaging study available. FINDINGS: Pancreas: There is nonspecific prominence of the pancreatic duct, which measures 3 mm in transverse d imension. No additional significant abnormality. Liver: Normal in size with a simple appearing cyst located posteriorly along the right hepatic lobe m easuring 3.7 x 4.6 x 3.0 cm. No additional significant abnormality. Gallbladder: Sludge is seen without shadowing stones, wall thickening or pericholecystic fluid. Bile ducts: No significant abnormality. Common bile duct measures 4 mm. Right kidney: No significant abnormality. Free fluid: None. Additional Findings: None. IMPRESSION: 1. Sludge in the gallbladder without sonographic evidence of cholelithiasis or acute cholecystitis. 2. Right hepatic lobe cyst as above without an additional significant sonographic abnormality of the liver. 3. Nonspecific prominence of the pancreatic duct. Signer Name: Bradley Sparks MD Signed: 10/14/2019 10:43 PM Workstation Name: [id number]
[2019-10-14] MEDS: MORPHINE 2 MG/1 ML INJ IV PRN (23:43)
[2019-10-15] MEDS ORDERED: ACETAMINOPHEN 325 MG/10.15 ML ORAL LIQD UNIT DOSE ONE (04:40)
[2019-10-15] MEDS: HEPARIN 5,000 UNIT/1 ML VIAL SUB-Q SCH ×3 (05:32→22:49)
[2019-10-15] MEDS: SODIUM CHLORIDE 0.9% 1000 ML 1,000 ML IV SCH ×5 (05:52→22:57)
[2019-10-15 05:59] LABS: Hematocrit 25.8 % (35.5-45.6); Hemoglobin 8.8 gm/dl (11.8-15.2); Mean Corpuscular HGB Conc 34 % (32-34); Mean Corpuscular Volume 89 fl (84-94); Platelet Count 639 K/mm3 (140-440); Red Cell Distribution Width 13.5 % (13.2-15.2)
[2019-10-15 06:05] LABS: INR 1.05 (0.87-1.13)
[2019-10-15 06:06] LABS: Partial Thromboplastin Time 28.5 Sec. (24.2-36.6)
[2019-10-15 06:08] LABS: Albumin 2.2 g/dL (3.9-5); BUN/Creatinine Ratio 60; Bilirubin,Direct 0.2 mg/dL (0-0.2); Blood Urea Nitrogen 36 mg/dL (9-20); Calcium 8.6 mg/dL (8.4-10.2); Hemolysis Index 0
[2019-10-15 06:20] LABS: Alanine Aminotransferase 83 units/L (7-56)
[2019-10-15 06:58] LABS: Basophils % (Manual) 0 % (0.0-1.8); Eosinophils % (Manual) 0 % (0.0-4.3); Total Cells Counted 100
[2019-10-15 06:59] LABS: Anisocytosis 1+; Large Platelets 1+; Ovalocytes Few
[2019-10-15 07:00] LABS: Platelet Estimate Consistent w Auto
[2019-10-15] MEDS ORDERED: cefTRIAXone/NS 1 GM/50 ML 1 GM/50 ML BAG IV SCH (10:00)
--- NOTE | 2019-10-15 10:45 | Gastroenterology Consultation ---
History of Present Illness - Reason for Consult Consult date: 10/15/19 elevated liver enzymes Requesting physician: ODILIA FLEMING - History of Present Illness Patient is a 64 y/o male with PMH of HTN and CVA (right side deficits, aphasia, s/p PEG) who was sent to ED from retirement for abnormal labs. Upon admission, he was found to have leukocytosis likely 2/2 UTI (on antibiotics) and elevated LFTs to which GI has been consulted. Patient unable to provide history. at bedside this am who assisted with proving history. She reports patient with a hx of chronic alcohol use (no alcohol since August of this year s/p stroke) but no hx or Fhx of liver disease. No IV drug use. No recent new medications. No evidence of abd pain or N/V upon exam. Past History Past Medical History: hypertension, stroke (Patient right-sided weakness, aphasia) Past Surgical History: Other (PEG) Social history: other (alcohol (no use since 08/2019)) Family history: other (Unknown) Medications and Allergies Allergies Allergy/AdvReac Type Severity Reaction Status Date / Time No Known Allergies Allergy Unverified 08/01/19 19:30 Home Medications Medication Instructions Recorded Confirmed Last Taken Type Albuterol Sulfate 10/14/19 Unknown History Aspirin [Adult Aspirin] 81 mg PO 10/14/19 Unknown History Atorvastatin Calcium [Lipitor] 40 mg FEEDTUBE 10/14/19 Unknown History Magnesium Oxide 10/14/19 Unknown History Methylphenidate HCl 10/14/19 Unknown History Metoprolol [Lopressor TAB] 50 mg PO BID 10/14/19 10/14/19 Unknown History Polyethylene Glycol 3350 [Miralax 17 gm PO QDAY 10/14/19 10/14/19 Unknown History 3350] Potassium Chloride 40 10/14/19 Unknown History Thiamine [Vitamin B-1] 100 mg PO QDAY 10/14/19 10/14/19 Unknown History Vitamin D3 2,000 UNIT CHEW TAB PRN 10/14/19 Unknown History Active Meds: Active Medications Acetaminophen (Tylenol) 650 mg PO Q4H PRN PRN Reason: Pain MILD(1-3)/Fever >100.5/MARK Heparin Sodium (Porcine) (Heparin) 5,000 unit SUB-Q Q8HR FCO Last Admin: 10/15/19 05:32 Dose: 5,000 unit Documented by: Sodium Chloride (Nacl 0.9% 1000 Ml) 1,000 mls @ 125 mls/hr IV DIRECT FCO Last Admin: 10/15/19 05:52 Dose: 125 mls/hr Documented by: Ceftriaxone Sodium (Rocephin/Ns 1 Gm/50 Ml) 1 gm in 50 mls @ 100 mls/hr IV Q24HR FCO; Protocol Last Admin: 10/15/19 09:26 Dose: 100 mls/hr Documented by: Magnesium Hydroxide (Milk Of Magnesia) 30 ml PO Q4H PRN PRN Reason: Constipation Morphine Sulfate (Morphine) 2 mg IV Q4H PRN PRN Reason: Pain, Moderate (4-6) Last Admin: 10/14/19 23:43 Dose: 2 mg Documented by: Ondansetron HCl (Zofran) 4 mg IV Q8H PRN PRN Reason: Nausea And Vomiting Sodium Chloride (Sodium Chloride Flush Syringe 10 Ml) 10 ml IV BID FCO Sodium Chloride (Sodium Chloride Flush Syringe 10 Ml) 10 ml IV PRN PRN PRN Reason: LINE FLUSH Last Admin: 10/14/19 23:45 Dose: 10 ml Documented by: medications reviewed/updated as required Review of Systems - Review of Systems ROS unobtainable: due to mental status Exam - Constitutional Vital Signs: Temp Pulse Resp BP Pulse Ox 98.5 F 103 H 18 107/58 96 10/15/19 06:12 10/15/19 06:12 10/15/19 06:12 10/15/19 06:12 10/15/19 06:12 General appearance: no acute distress, other (somnolent; aphasia) - Respiratory Respiratory effort: labored (slightly) Respiratory: bilateral: diminished - Cardiovascular Rhythm: other (tachycardia) - Gastrointestinal General gastrointestinal: Present: soft, non-distended, normal bowel sounds, other (+PEG (C/D/I w/o s/s of infection/bleeding)) - Neurologic Neurological: other (unable to assess) - Labs CBC & Chem 7: 10/15/19 05:31 10/15/19 05:31 Lab Results: Laboratory Results - last 24 hr 10/14/19 10/14/19 10/14/19 18:45 18:45 19:00 WBC 36.7 H RBC 3.34 L Hgb 10.0 L Hct 30.0 L MCV 90 MCH 30 MCHC 34 RDW 13.4 Plt Count 647 H Lymph % (Auto) [place] % (Auto) Eos % (Auto) Baso % (Auto) Lymph # [place] # Eos # Baso # Add Manual Diff Complete Total Counted 100 Seg Neutrophils % Seg Neuts % (Manual) 89.0 H Band Neutrophils % 0 Lymphocytes % (Manual) 5.0 L Reactive Lymphs % (Man) 0 Monocytes % (Manual) 6.0 Eosinophils % (Manual) 0 Basophils % (Manual) 0 Metamyelocytes % 0 Myelocytes % 0 Promyelocytes % 0 Blast Cells % 0 Nucleated RBC % Not Reportable Seg Neutrophils # Seg Neutrophils # Man 32.7 H Band Neutrophils # 0.0 Lymphocytes # (Manual) 1.8 Abs React Lymphs (Man) 0.0 Monocytes # (Manual) 2.2 H Eosinophils # (Manual) 0.0 Basophils # (Manual) 0.0 Metamyelocytes # 0.0 Myelocytes # 0.0 Promyelocytes # 0.0 Blast Cells # 0.0 WBC Morphology Not Reportable Hypersegmented Neuts Not Reportable Hyposegmented Neuts Not Reportable Hypogranular Neuts Not Reportable Smudge Cells Not Reportable Toxic Granulation Not Reportable Toxic Vacuolation Not Reportable Dohle Bodies Not Reportable Pelger-Huet Anomaly Not Reportable Vidal Rods Not Reportable Platelet Estimate Consistent w auto Clumped Platelets Not Reportable Plt Clumps, EDTA Not Reportable Large Platelets Not Reportable Giant Platelets Not Reportable Platelet Satelliting Not Reportable Plt Morphology Comment Not Reportable RBC Morphology Normal Dimorphic RBCs Not Reportable Polychromasia Not Reportable Hypochromasia Not Reportable Poikilocytosis Not Reportable Anisocytosis Not Reportable Microcytosis Not Reportable Macrocytosis Not Reportable Spherocytes Not Reportable Pappenheimer Bodies Not Reportable Sickle Cells Not Reportable Target Cells Not Reportable Tear Drop Cells Not Reportable Ovalocytes Not Reportable Helmet Cells Not Reportable Royal-Bogart Bodies Not Reportable [place] Rings Not Reportable Nicki Cells Not Reportable Bite Cells Not Reportable Crenated Cell Not Reportable Elliptocytes Not Reportable Acanthocytes (Spur) Not Reportable Rouleaux Not Reportable Hemoglobin C Crystals Not Reportable Schistocytes Not Reportable Malaria parasites Not Reportable Joe Bodies Not Reportable Hem Pathologist Commnt Sent to pathology PT INR APTT Sodium 135 L Potassium 5.0 Chloride 96.5 L Carbon Dioxide 21 L Anion Gap 23 BUN 49 H Creatinine 1.5 Estimated GFR 57 BUN/Creatinine Ratio 33 Glucose 145 H Lactic Acid 1.70 Calcium 9.5 Total Bilirubin 0.80 Direct Bilirubin Indirect Bilirubin AST 62 H ALT 101 H Alkaline Phosphatase 269 H Total Protein 7.8 Albumin 2.4 L Albumin/Globulin Ratio 0.4 Urine Color Urine Turbidity Urine pH Ur Specific [place] Urine Protein Urine Glucose (UA) Urine Ketones Urine Blood Urine Nitrite Urine Bilirubin Urine Urobilinogen Ur Leukocyte Esterase Urine WBC (Auto) Urine RBC (Auto) U Epithel Cells (Auto) Urine Bacteria (Auto) Urine Mucus 10/14/19 10/15/19 10/15/19 19:35 05:31 05:31 WBC 25.3 H RBC 2.90 L Hgb 8.8 L Hct 25.8 L MCV 89 MCH 30 MCHC 34 RDW 13.5 Plt Count 639 H Lymph % (Auto) Activities Director [employer] [place] % (Auto) Activities Director Sc[employer] Eos % (Auto) Activities Director [employer] Baso % (Auto) Activities Director Scouting Lymph # Activities Director Sc[employer] [place] # Activities Director [employer] Eos # Activities Director Sc[employer] Baso # Activities Director Scouting Add Manual Diff Complete Total Counted 100 Seg Neutrophils % Activities Director [employer] Seg Neuts % (Manual) 93.0 H Band Neutrophils % 0 Lymphocytes % (Manual) 5.0 L Reactive Lymphs % (Man) 0 Monocytes % (Manual) 1.0 Eosinophils % (Manual) 0 Basophils % (Manual) 0 Metamyelocytes % 1.0 Myelocytes % 0 Promyelocytes % 0 Blast Cells % 0 Nucleated RBC % Not Reportable Seg Neutrophils # Activities Director [employer] Seg Neutrophils # Man 23.5 H Band Neutrophils # 0.0 Lymphocytes # (Manual) 1.3 Abs React Lymphs (Man) 0.0 Monocytes # (Manual) 0.3 Eosinophils # (Manual) 0.0 Basophils # (Manual) 0.0 Metamyelocytes # 0.3 Myelocytes # 0.0 Promyelocytes # 0.0 Blast Cells # 0.0 WBC Morphology Not Reportable Hypersegmented Neuts Not Reportable Hyposegmented Neuts Not Reportable Hypogranular Neuts Not Reportable Smudge Cells Not Reportable Toxic Granulation Not Reportable Toxic Vacuolation Not Reportable Dohle Bodies Not Reportable Pelger-Huet Anomaly Not Reportable Vidal Rods Not Reportable Platelet Estimate Consistent w auto Clumped Platelets Not Reportable Plt Clumps, EDTA Not Reportable Large Platelets 1+ Giant Platelets Not Reportable Platelet Satelliting Not Reportable Plt Morphology Comment Not Reportable RBC Morphology Not Reportable Dimorphic RBCs Not Reportable Polychromasia Not Reportable Hypochromasia Not Reportable Poikilocytosis Not Reportable Anisocytosis 1+ Microcytosis Not Reportable Macrocytosis Not Reportable Spherocytes Not Reportable Pappenheimer Bodies Not Reportable Sickle Cells Not Reportable Target Cells Not Reportable Tear Drop Cells Not Reportable Ovalocytes Few Helmet Cells Not Reportable Royal-Bogart Bodies Not Reportable [place] Rings Not Reportable Nicki Cells Not Reportable Bite Cells Not Reportable Crenated Cell Not Reportable Elliptocytes Not Reportable Acanthocytes (Spur) Not Reportable Rouleaux Not Reportable Hemoglobin C Crystals Not Reportable Schistocytes Not Reportable Malaria parasites Not Reportable Joe Bodies Not Reportable Hem Pathologist Commnt No PT 13.8 INR 1.05 APTT 28.5 Sodium Potassium Chloride Carbon Dioxide Anion Gap BUN Creatinine Estimated GFR BUN/Creatinine Ratio Glucose Lactic Acid Calcium Total Bilirubin Direct Bilirubin Indirect Bilirubin AST ALT Alkaline Phosphatase Total Protein Albumin Albumin/Globulin Ratio Urine Color Sadie Urine Turbidity Cloudy Urine pH 5.0 Ur Specific [place] 1.026 Urine Protein 30 mg/dl Urine Glucose (UA) Neg Urine Ketones Neg Urine Blood Neg Urine Nitrite Neg Urine Bilirubin Neg Urine Urobilinogen 4.0 Ur Leukocyte Esterase Mod Urine WBC (Auto) 157.0 H Urine RBC (Auto) 16.0 U Epithel Cells (Auto) 2.0 Urine Bacteria (Auto) 4+ Urine Mucus 2+ 10/15/19 05:31 WBC RBC Hgb Hct MCV MCH MCHC RDW Plt Count Lymph % (Auto) [place] % (Auto) Eos % (Auto) Baso % (Auto) Lymph # [place] # Eos # Baso # Add Manual Diff Total Counted Seg Neutrophils % Seg Neuts % (Manual) Band Neutrophils % Lymphocytes % (Manual) Reactive Lymphs % (Man) Monocytes % (Manual) Eosinophils % (Manual) Basophils % (Manual) Metamyelocytes % Myelocytes % Promyelocytes % Blast Cells % Nucleated RBC % Seg Neutrophils # Seg Neutrophils # Man Band Neutrophils # Lymphocytes # (Manual) Abs React Lymphs (Man) Monocytes # (Manual) Eosinophils # (Manual) Basophils # (Manual) Metamyelocytes # Myelocytes # Promyelocytes # Blast Cells # WBC Morphology Hypersegmented Neuts Hyposegmented Neuts Hypogranular Neuts Smudge Cells Toxic Granulation Toxic Vacuolation Dohle Bodies Pelger-Huet Anomaly Vidal Rods Platelet Estimate Clumped Platelets Plt Clumps, EDTA Large Platelets Giant Platelets Platelet Satelliting Plt Morphology Comment RBC Morphology Dimorphic RBCs Polychromasia Hypochromasia Poikilocytosis Anisocytosis Microcytosis Macrocytosis Spherocytes Pappenheimer Bodies Sickle Cells Target Cells Tear Drop Cells Ovalocytes Helmet Cells Royal-Bogart Bodies [place] Rings Nicki Cells Bite Cells Crenated Cell Elliptocytes Acanthocytes (Spur) Rouleaux Hemoglobin C Crystals Schistocytes Malaria parasites Joe Bodies Hem Pathologist Commnt PT INR APTT Sodium 139 Potassium 4.8 Chloride 107.7 H Carbon Dioxide 23 Anion Gap 13 BUN 36 H Creatinine 0.6 L D Estimated GFR > 60 BUN/Creatinine Ratio 60 Glucose 140 H Lactic Acid Calcium 8.6 Total Bilirubin 0.40 Direct Bilirubin 0.2 Indirect Bilirubin 0.2 AST 50 H ALT 83 H Alkaline Phosphatase 244 H Total Protein 6.9 Albumin 2.2 L Albumin/Globulin Ratio 0.5 Urine Color Urine Turbidity Urine pH Ur Specific [place] Urine Protein Urine Glucose (UA) Urine Ketones Urine Blood Urine Nitrite Urine Bilirubin Urine Urobilinogen Ur Leukocyte Esterase Urine WBC (Auto) Urine RBC (Auto) U Epithel Cells (Auto) Urine Bacteria (Auto) Urine Mucus Assessment and Plan 1.elevated LFT -INR 1.05, plt 639 -LFTs-T.michael 1.40, AST 50, ALT 83, alk phos 244-trending down -abd U/S showed sludge in gallbladder but no acute cholecystitis, right hepatic lobe cyst but otherwise normal, and nonspecific prominence of the pancreatic duct -clinically, no evidence of abd pain or N/V. -etiology-likely 2/2 sepsis vs other (unknown baseline of LFTs, hx of ETOH but no alcohol since 08/2019 s/p stroke) -will order labs to r/o other causes (acute hepatitis panel, acetaminophen level, TATI, etc) -avoid hepatotoxic agents -continue to trend labs and supportive care -will follow
[2019-10-15] MEDS: ACETAMINOPHEN 325 MG TAB PO PRN (12:26)
[2019-10-15] MEDS: MORPHINE 2 MG/1 ML INJ IV PRN ×3 (13:12→23:59)
[2019-10-15 13:48] LABS: Hepatitis B Surface Antigen Non-Reactive (Negative); Hepatitis C Virus Antibody Non-Reactive (NonReactive)
--- NOTE | 2019-10-15 14:25 | Consultation ---
History of Present Illness - Reason for Consult Consult date: 10/15/19 Sepsis, GNR bacteremia Requesting physician: DANIEL ALEJANDRO - History of Present Illness The patient is a 64-year-old male with CVA, right-sided deficits, aphasia, hypertension, status post feeding tube, assisted resident was sent over yesterday due to concerns of abnormal labs. The patient is nonverbal at baseline. No report of fever or chills. WBC was significantly elevated. Blood cultures done on admission are growing gram-negative rods and hence infectious diseases was consulted. is at bedside, provides most of the history apart from chart review. Also states that the patient's PEG tube was replaced due to dislodgment. Patient had a CVA in July and has been at the rehabilitation facility since August 2019. Due to incontinence, patient was with adult diapers, here he has a condom catheter. Review of Systems: Unable to obtain due to baseline aphasia. Past History Past Medical History: hypertension, stroke (Patient right-sided weakness, aphasia) Past Surgical History: Other (PEG) Social history: other (alcohol (no use since 08/2019)) Family history: other (Unknown) Medications and Allergies Allergies Allergy/AdvReac Type Severity Reaction Status Date / Time No Known Allergies Allergy Unverified 08/01/19 19:30 Home Medications Medication Instructions Recorded Confirmed Last Taken Type Albuterol Sulfate 10/14/19 Unknown History Aspirin [Adult Aspirin] 81 mg PO 10/14/19 Unknown History Atorvastatin Calcium [Lipitor] 40 mg FEEDTUBE 10/14/19 Unknown History Magnesium Oxide 10/14/19 Unknown History Methylphenidate HCl 10/14/19 Unknown History Metoprolol [Lopressor TAB] 50 mg PO BID 10/14/19 10/14/19 Unknown History Polyethylene Glycol 3350 [Miralax 17 gm PO QDAY 10/14/19 10/14/19 Unknown History 3350] Potassium Chloride 40 10/14/19 Unknown History Thiamine [Vitamin B-1] 100 mg PO QDAY 10/14/19 10/14/19 Unknown History Vitamin D3 2,000 UNIT CHEW TAB PRN 10/14/19 Unknown History Active Meds: Active Medications Acetaminophen (Tylenol) 650 mg PO Q4H PRN PRN Reason: Pain MILD(1-3)/Fever >100.5/MARK Last Admin: 10/15/19 12:26 Dose: 650 mg Documented by: Heparin Sodium (Porcine) (Heparin) 5,000 unit SUB-Q Q8HR FCO Last Admin: 10/15/19 05:32 Dose: 5,000 unit Documented by: Sodium Chloride (Nacl 0.9% 1000 Ml) 1,000 mls @ 125 mls/hr IV DIRECT FCO Last Admin: 10/15/19 05:52 Dose: 125 mls/hr Documented by: Ceftriaxone Sodium (Rocephin/Ns 1 Gm/50 Ml) 1 gm in 50 mls @ 100 mls/hr IV Q24HR FCO; Protocol Last Admin: 10/15/19 09:26 Dose: 100 mls/hr Documented by: Sodium Chloride (Nacl 0.9% 1000 Ml) 1,000 mls @ 0 mls/hr IV ONCE FCO Stop: 10/16/19 12:46 Last Admin: 10/15/19 13:13 Dose: 999 mls/hr Documented by: Magnesium Hydroxide (Milk Of Magnesia) 30 ml PO Q4H PRN PRN Reason: Constipation Morphine Sulfate (Morphine) 2 mg IV Q4H PRN PRN Reason: Pain, Moderate (4-6) Last Admin: 10/15/19 13:12 Dose: 2 mg Documented by: Ondansetron HCl (Zofran) 4 mg IV Q8H PRN PRN Reason: Nausea And Vomiting Sodium Chloride (Sodium Chloride Flush Syringe 10 Ml) 10 ml IV BID [facility] Last Admin: 10/15/19 12:26 Dose: 10 ml Documented by: Sodium Chloride (Sodium Chloride Flush Syringe 10 Ml) 10 ml IV PRN PRN PRN Reason: LINE FLUSH Last Admin: 10/14/19 23:45 Dose: 10 ml Documented by: Physical Examination - Physical Exam Narrative exam: Physical Exam: Constitutional: awake, mild distress Head, Ears, Nose: Normocephalic, atraumatic. External ears, nose normal Eyes: Conjunctivae/corneas clear. No icterus. No ptosis. Neck: Supple, no meningeal signs Oral: no thrush Cardiovascular: S1, S2 normal, tachy Respiratory: Good air entry, clear to auscultation bilaterally GI: Soft, firm; bowel sounds +, PEG +, condom cath + Musculoskeletal: No pedal edema, no cyanosis. Skin: No rash or abscess Hem/Lymphatic: No palpable cervical or supraclavicular nodes. No lymphangitis Psych: no agitation Neurological: Awake, non verbal - Constitutional Vitals: Vital Signs Temp Pulse Resp BP Pulse Ox 98.5 F 103 H 18 107/58 96 10/15/19 06:12 10/15/19 06:12 10/15/19 06:12 10/15/19 06:12 10/15/19 06:12 Temperature -Last 24 Hours Temperature 98.5 F Temperature 98.5 F Temperature 97.7 F Temperature 97.8 F Results - Labs CBC & Chem 7: 10/15/19 05:31 10/15/19 05:31 Labs: Abnormal lab results 10/14/19 10/14/19 10/14/19 Range/Units 18:45 18:45 19:35 WBC 36.7 H (4.5-11.0) K/mm3 RBC 3.34 L (3.65-5.03) M/mm3 Hgb 10.0 L (11.8-15.2) gm/dl Hct 30.0 L (35.5-45.6) % Plt Count 647 H (140-440) K/mm3 Seg Neuts % (Manual) 89.0 H (40.0-70.0) % Lymphocytes % (Manual) 5.0 L (13.4-35.0) % Seg Neutrophils # Man 32.7 H (1.8-7.7) K/mm3 Monocytes # (Manual) 2.2 H (0.0-0.8) K/mm3 Sodium 135 L (137-145) mmol/L Chloride 96.5 L (98-107) mmol/L Carbon Dioxide 21 L (22-30) mmol/L BUN 49 H (9-20) mg/dL Creatinine (0.8-1.5) mg/dL Glucose 145 H (75-100) mg/dL AST 62 H (5-40) units/L ALT 101 H (7-56) units/L Alkaline Phosphatase 269 H (35-129) units/L Albumin 2.4 L (3.9-5) g/dL Urine WBC (Auto) 157.0 H (0.0-6.0) /HPF Acetaminophen (10.0-30.0) ug/mL 10/15/19 10/15/19 10/15/19 Range/Units 05:31 05:31 13:07 WBC 25.3 H (4.5-11.0) K/mm3 RBC 2.90 L (3.65-5.03) M/mm3 Hgb 8.8 L (11.8-15.2) gm/dl Hct 25.8 L (35.5-45.6) % Plt Count 639 H (140-440) K/mm3 Seg Neuts % (Manual) 93.0 H (40.0-70.0) % Lymphocytes % (Manual) 5.0 L (13.4-35.0) % Seg Neutrophils # Man 23.5 H (1.8-7.7) K/mm3 Monocytes # (Manual) (0.0-0.8) K/mm3 Sodium (137-145) mmol/L Chloride 107.7 H (98-107) mmol/L Carbon Dioxide (22-30) mmol/L BUN 36 H (9-20) mg/dL Creatinine 0.6 L D (0.8-1.5) mg/dL Glucose 140 H (75-100) mg/dL AST 50 H (5-40) units/L ALT 83 H (7-56) units/L Alkaline Phosphatase 244 H (35-129) units/L Albumin 2.2 L (3.9-5) g/dL Urine WBC (Auto) (0.0-6.0) /HPF Acetaminophen < 5.0 L (10.0-30.0) ug/mL - Imaging and Cardiology US - abdomen: report reviewed, image reviewed (Sludge in gallbladder, no obvious evidence of acute cholecystitis) Assessment and Plan Cultures: 10/14/2019 blood culture: Gram-negative rods 10/14/2019 urine culture: No growth A/P: 64-year-old male with CVA, right-sided deficits, aphasia, hypertension, status post feeding tube, assisted resident was sent over yesterday due to concerns of abnormal labs, admitted with: #Sepsis: Source UTI versus hepatobiliary/intra-abdominal #Gram-negative bacteremia: Treat empirically with IV cefepime #Urinary tract infection on UA shows significant pyuria. Culture in process #Elevated LFTs: Ultrasound showed sludge in gallbladder. Alk phos is also elevated but overall, LFTs are trending down. #Acute kidney injury: Creatinine improved. Recs: Empiric IV Cefepime started. Ceftriaxone d/farzaneh flagyl also added Recommend CT abdomen and pelvis with IV contrast, order placed d/w Dr. Alejandro. Cely Viera MD, FACP [facility] C: [phone] O: [phone] F: [phone]
--- NOTE | 2019-10-15 16:16 | Progress Note ---
Assessment and Plan Assessment and plan: Patient is a 64-year-old male resident of a retirement brought into the emergency room today for further evaluation for abnormal labs. Labs were said to have been drawn today patient is said to have had elevated white counts and also abnormally elevated liver enzymes. His liver enzymes on labs done at the retirement shows ALT in the 700s and AST in the 200s. Labs drawn here in this facility showed ALT in the low 100s and AST in the 60s. History could not be gotten from patient but not his head to verbal communications. There has been no history of diarrhea, abdominal pain, fever or chills. 64-year-old male with CVA, right-sided deficits, aphasia, hypertension, status post feeding tube, retirement resident was sent over yesterday due to concerns of abnormal labs, admitted with: Sepsis secondary to GNR bactermiaia Acute Cystisis AARON secondary to vasomotor nephropathy Transaminitis Gallbladder sludge CVA with residual right sided hemiparesis Disloged PEG tube [facility] resident Plan Supportive care Aggressive fluid resuscitation GI eval ID consult Continue antibiotics and monitor cultures Wound care consult Per family patient has had recurrent infections since at the retirement, have discussed quality versus quantity of life advance care planning discussed with [address] ABDOMEN AND PLEVIS PER ID DVT/GI PROPHY History Interval history: Patient seen and examined, he feels very emotional family at bedside. No other adverse event reported to me by nursing staff Hospitalist Physical - Physical exam Narrative exam: VITAL SIGNS: Reviewed. GENERAL: The patient appears normally developed, chronically ill appearing, contracted mild distress vital signs as documented. HEAD: No signs of head trauma. EYES: Pupils are equal. Extraocular motions intact. EARS: Hearing grossly intact. MOUTH: Oropharynx is normal. NECK: No adenopathy, no JVD. CHEST: Chest with clear breath sounds bilaterally. No wheezes, rales, or rhonchi. CARDIAC: Regular rate and rhythm. S1 and S2, without murmurs, gallops, or rubs. VASCULAR: No Edema. Peripheral pulses normal and equal in all extremities. ABDOMEN: Soft, G-tube noted erythema around the area later was informed by nursing staff that this at dislodged. Non tender and non distended. No graham ound or guarding, and no masses palpated. Bowel Sounds normal. MUSCULOSKELETAL: Good range of motion of all major joints. Extremities without clubbing, cyanosis or edema. NEUROLOGIC EXAM: awake, non verbal,. right sided weakness. PSYCHIATRIC: Mood emotional. SKIN: detail exam as documented in skin assessment - Constitutional Vitals: Temp Pulse Resp BP Pulse Ox 97.5 F L 116 H 22 122/55 90 10/15/19 12:21 10/15/19 12:21 10/15/19 12:21 10/15/19 12:21 10/15/19 12:21 General appearance: Present: no acute distress, cachectic, other (Dry oral mucosa) Results - Labs CBC & Chem 7: 10/15/19 05:31 10/15/19 05:31 Labs: Laboratory Last Values WBC 25.3 K/mm3 (4.5-11.0) H 10/15/19 05:31 RBC 2.90 M/mm3 (3.65-5.03) L 10/15/19 05:31 Hgb 8.8 gm/dl (11.8-15.2) L 10/15/19 05:31 Hct 25.8 % (35.5-45.6) L 10/15/19 05:31 MCV 89 fl (84-94) 10/15/19 05:31 MCH 30 pg (28-32) 10/15/19 05:31 MCHC 34 % (32-34) 10/15/19 05:31 RDW 13.5 % (13.2-15.2) 10/15/19 05:31 Plt Count 639 K/mm3 (140-440) H 10/15/19 05:31 Lymph % (Auto) [place] 10/15/19 05:31 [place] % (Auto) [place] 10/15/19 05:31 Eos % (Auto) [place] 10/15/19 05:31 Baso % (Auto) [place] 10/15/19 05:31 Lymph # [place] 10/15/19 05:31 [place] # [place] 10/15/19 05:31 Eos # [place] 10/15/19 05:31 Baso # [place] 10/15/19 05:31 Add Manual Diff Complete 10/15/19 05:31 Total Counted 100 10/15/19 05:31 Seg Neutrophils % [place] 10/15/19 05:31 Seg Neuts % (Manual) 93.0 % (40.0-70.0) H 10/15/19 05:31 Band Neutrophils % 0 % 10/15/19 05:31 Lymphocytes % (Manual) 5.0 % (13.4-35.0) L 10/15/19 05:31 Reactive Lymphs % (Man) 0 % 10/15/19 05:31 Monocytes % (Manual) 1.0 % (0.0-7.3) 10/15/19 05:31 Eosinophils % (Manual) 0 % (0.0-4.3) 10/15/19 05:31 Basophils % (Manual) 0 % (0.0-1.8) 10/15/19 05:31 Metamyelocytes % 1.0 % 10/15/19 05:31 Myelocytes % 0 % 10/15/19 05:31 Promyelocytes % 0 % 10/15/19 05:31 Blast Cells % 0 % 10/15/19 05:31 Nucleated RBC % Not Reportable 10/15/19 05:31 Seg Neutrophils # [place] 10/15/19 05:31 Seg Neutrophils # Man 23.5 K/mm3 (1.8-7.7) H 10/15/19 05:31 Band Neutrophils # 0.0 K/mm3 10/15/19 05:31 Lymphocytes # (Manual) 1.3 K/mm3 (1.2-5.4) 10/15/19 05:31 Abs React Lymphs (Man) 0.0 K/mm3 10/15/19 05:31 Monocytes # (Manual) 0.3 K/mm3 (0.0-0.8) 10/15/19 05:31 Eosinophils # (Manual) 0.0 K/mm3 (0.0-0.4) 10/15/19 05:31 Basophils # (Manual) 0.0 K/mm3 (0.0-0.1) 10/15/19 05:31 Metamyelocytes # 0.3 K/mm3 10/15/19 05:31 Myelocytes # 0.0 K/mm3 10/15/19 05:31 Promyelocytes # 0.0 K/mm3 10/15/19 05:31 Blast Cells # 0.0 K/mm3 10/15/19 05:31 WBC Morphology Not Reportable 10/15/19 05:31 Hypersegmented Neuts Not Reportable 10/15/19 05:31 Hyposegmented Neuts Not Reportable 10/15/19 05:31 Hypogranular Neuts Not Reportable 10/15/19 05:31 Smudge Cells Not Reportable 10/15/19 05:31 Toxic Granulation Not Reportable 10/15/19 05:31 Toxic Vacuolation Not Reportable 10/15/19 05:31 Dohle Bodies Not Reportable 10/15/19 05:31 Pelger-Huet Anomaly Not Reportable 10/15/19 05:31 Vidal Rods Not Reportable 10/15/19 05:31 Platelet Estimate Consistent w auto 10/15/19 05:31 Clumped Platelets Not Reportable 10/15/19 05:31 Plt Clumps, EDTA Not Reportable 10/15/19 05:31 Large Platelets 1+ 10/15/19 05:31 Giant Platelets Not Reportable 10/15/19 05:31 Platelet Satelliting Not Reportable 10/15/19 05:31 Plt Morphology Comment Not Reportable 10/15/19 05:31 RBC Morphology Not Reportable 10/15/19 05:31 Dimorphic RBCs Not Reportable 10/15/19 05:31 Polychromasia Not Reportable 10/15/19 05:31 Hypochromasia Not Reportable 10/15/19 05:31 Poikilocytosis Not Reportable 10/15/19 05:31 Anisocytosis 1+ 10/15/19 05:31 Microcytosis Not Reportable 10/15/19 05:31 Macrocytosis Not Reportable 10/15/19 05:31 Spherocytes Not Reportable 10/15/19 05:31 Pappenheimer Bodies Not Reportable 10/15/19 05:31 Sickle Cells Not Reportable 10/15/19 05:31 Target Cells Not Reportable 10/15/19 05:31 Tear Drop Cells Not Reportable 10/15/19 05:31 Ovalocytes Few 10/15/19 05:31 Helmet Cells Not Reportable 10/15/19 05:31 [place] Bodies Not Reportable 10/15/19 05:31 [place] Rings Not Reportable 10/15/19 05:31 [place] Cells Not Reportable 10/15/19 05:31 Bite Cells Not Reportable 10/15/19 05:31 Crenated Cell Not Reportable 10/15/19 05:31 Elliptocytes Not Reportable 10/15/19 05:31 Acanthocytes (Spur) Not Reportable 10/15/19 05:31 Rouleaux Not Reportable 10/15/19 05:31 Hemoglobin C Crystals Not Reportable 10/15/19 05:31 Schistocytes Not Reportable 10/15/19 05:31 Malaria parasites Not Reportable 10/15/19 05:31 Joe Bodies Not Reportable 10/15/19 05:31 Hem Pathologist Commnt No 10/15/19 05:31 PT 13.8 Sec. (12.2-14.9) 10/15/19 05:31 INR 1.05 (0.87-1.13) 10/15/19 05:31 APTT 28.5 Sec. (24.2-36.6) 10/15/19 05:31 Sodium 139 mmol/L (137-145) 10/15/19 05:31 Potassium 4.8 mmol/L (3.6-5.0) 10/15/19 05:31 Chloride 107.7 mmol/L (98-107) H 10/15/19 05:31 Carbon Dioxide 23 mmol/L (22-30) 10/15/19 05:31 Anion Gap 13 mmol/L 10/15/19 05:31 BUN 36 mg/dL (9-20) H 10/15/19 05:31 Creatinine 0.6 mg/dL (0.8-1.5) L D 10/15/19 05:31 Estimated GFR > 60 ml/min 10/15/19 05:31 BUN/Creatinine Ratio 60 % 10/15/19 05:31 Glucose 140 mg/dL (75-100) H 10/15/19 05:31 Lactic Acid 1.70 mmol/L (0.7-2.0) 10/14/19 19:00 Calcium 8.6 mg/dL (8.4-10.2) 10/15/19 05:31 Total Bilirubin 0.40 mg/dL (0.1-1.2) 10/15/19 05:31 Direct Bilirubin 0.2 mg/dL (0-0.2) 10/15/19 05:31 Indirect Bilirubin 0.2 mg/dL 10/15/19 05:31 AST 50 units/L (5-40) H 10/15/19 05:31 ALT 83 units/L (7-56) H 10/15/19 05:31 Alkaline Phosphatase 244 units/L (35-129) H 10/15/19 05:31 Total Protein 6.9 g/dL (6.3-8.2) 10/15/19 05:31 Albumin 2.2 g/dL (3.9-5) L 10/15/19 05:31 Albumin/Globulin Ratio 0.5 % 10/15/19 05:31 Urine Color Sadie (Yellow) 10/14/19 19:35 Urine Turbidity Cloudy (Clear) 10/14/19 19:35 Urine pH 5.0 (5.0-7.0) 10/14/19 19:35 Ur Specific [place] 1.026 (1.003-1.030) 10/14/19 19:35 Urine Protein 30 mg/dl mg/dL (Negative) 10/14/19 19:35 Urine Glucose (UA) Neg mg/dL (Negative) 10/14/19 19:35 Urine Ketones Neg mg/dL (Negative) 10/14/19 19:35 Urine Blood Neg (Negative) 10/14/19 19:35 Urine Nitrite Neg (Negative) 10/14/19 19:35 Urine Bilirubin Neg (Negative) 10/14/19 19:35 Urine Urobilinogen 4.0 mg/dL (<2.0) 10/14/19 19:35 Ur Leukocyte Esterase Mod (Negative) 10/14/19 19:35 Urine WBC (Auto) 157.0 /HPF (0.0-6.0) H 10/14/19 19:35 Urine RBC (Auto) 16.0 /HPF (0.0-6.0) 10/14/19 19:35 U Epithel Cells (Auto) 2.0 /HPF (0-13.0) 10/14/19 19:35 Urine Bacteria (Auto) 4+ /HPF (Negative) 10/14/19 19:35 Urine Mucus 2+ /HPF 10/14/19 19:35 Acetaminophen < 5.0 ug/mL (10.0-30.0) L 10/15/19 13:07 Hepatitis A IgM Ab Non-reactive (NonReactive) 10/15/19 13:07 Hep Bs Antigen Non-reactive (Negative) 10/15/19 13:07 Hep B Core IgM Ab Non-reactive (NonReactive) 10/15/19 13:07 Hepatitis C Antibody Non-reactive (NonReactive) 10/15/19 13:07 Active Medications - Current Medications Current Medications: Generic Name Dose Route Start Last Admin Trade Name Freq PRN Reason Stop Dose Admin Acetaminophen 650 mg 10/14/19 22:04 10/15/19 12:26 Tylenol PO 650 mg Q4H PRN Administration Pain MILD(1-3)/Fever >100.5/MARK Heparin Sodium (Porcine) 5,000 unit 10/15/19 06:00 10/15/19 15:28 Heparin SUB-Q 5,000 unit Q8HR FCO Administration Sodium Chloride 1,000 mls @ 125 mls/hr 10/14/19 22:15 10/15/19 05:52 Nacl 0.9% 1000 Ml IV 125 mls/hr DIRECT FCO Administration Sodium Chloride 1,000 mls @ 0 mls/hr 10/15/19 12:45 10/15/19 15:20 Nacl 0.9% 1000 Ml IV 10/16/19 12:46 999 mls/hr ONCE FCO Administration As Directed Cefepime HCl 1 gm in 100 mls @ 200 mls/hr 10/15/19 16:00 Cefepime/Ns 1 Gm/100 Ml IV Q8H FCO Protocol Metronidazole 500 mg in 100 mls @ 100 mls/hr 10/15/19 16:30 Flagyl 500 Mg/100 Ml IV Q8H FCO Protocol Magnesium Hydroxide 30 ml 10/14/19 22:04 Milk Of Magnesia PO Q4H PRN Constipation Morphine Sulfate 2 mg 10/14/19 22:04 10/15/19 13:12 Morphine IV 2 mg Q4H PRN Administration Pain, Moderate (4-6) Ondansetron HCl 4 mg 10/14/19 22:04 Zofran IV Q8H PRN Nausea And Vomiting Sodium Chloride 10 ml 10/15/19 10:00 10/15/19 12:26 Sodium Chloride Flush Syringe 10 Ml IV 10 ml BID FCO Administration Sodium Chloride 10 ml 10/14/19 22:04 10/14/19 23:45 Sodium Chloride Flush Syringe 10 Ml IV 10 ml PRN PRN Administration LINE FLUSH Nutrition/Malnutrition Assess - Dietary Evaluation Nutrition/Malnutrition Findings: Nutrition Notes Start: 10/15/19 10:38 Freq: Status: Active Protocol: Document 10/15/19 10:38 CT (Rec: 10/15/19 10:57 CT [id number]) Co-Sign 10/15/19 10:38 LP Nutrition Notes Need for Assessment generated from: MD Order,[employer] Initial or Follow up Assessment Current Diagnosis Stroke Other Pertinent Diagnosis aphasia, right sided weakness, abnormal LFTs, Leukocytosis, UTI Current Diet NPO Labs/Tests BUN 36 Cr 0.6 Glu 140 AST 50 ALT 83 Alkaline phosphatase 244 Pertinent Medications NS 125 ml/hr Rocephin Height 5 ft 11 in Weight 64 kg Usual Body Weight 77.111 kg [place] Body Weight (kg) 78.18 BMI 19.6 Weight change and time frame 16.8% wt loss in 2 months Subjective/Other Information Consult for TF order, Hx of difficulty chewing and skin risk. Pt was sleeping at time of visit, pt family member gave report of information. Pt family member stated that pt has had a 10 lb wt loss in 2 months and his UBW is 170-175 lbs. Noted temporal and orbital wasting. Burn Absent Trauma Absent GI Symptoms None Difficulty In Swallowing,Chewing Current % PO Negligible Minimum of two criteria Yes Interpretation of Weight Loss (severe) >5% in 1 month Body Fat Depletion Moderate depletion (severe) Muscle Mass Moderate Depletion (severe) #1 Nutrition Diagnosis Malnutrition Etiology CVA, hx of difficulty chewing and swallowing As Evidenced by Signs and Symptoms fat and muscle wasting, 16.8% wt loss in 2 months Is patient on ventilator? No Is Patient Ambulatory and/or Out of Bed No REE-([place]-confined to bed) 1747.932 Kcal/Kg value to use for calculation 32 Approximate Energy Requirements Using 2048 kcal/Kg Calculation Used for Recommendations Kcal/kg Additional Notes Protein needs: 94-117 g/kg/day (1.2-1.5 g/kg/day IBW 78kg) Fluid needs: 1 ml/kcal/day Nutrition Intervention Change Diet Order: Start TF Nutrition Support: Jevity 1.2 70 ml/hr (goal rate ) with 120 ml free water flushes q4h Kcal 2,016 Protein (gm) 93 Fluid (mL) 1,355 Goal #1 Initiate TF Goal #2 Meet >75% energy and protein needs via TF Anticipated Discharge Needs: unable to determine at this time Follow-Up By: 10/18/19 Additional Comments Follow up for TF initiation, TF running at rate.
[2019-10-15] MEDS: metroNIDAZOLE/NS 500 MG/100 ML 500 MG/100 ML BAG IV SCH ×2 (18:52→23:58)
[2019-10-15] MEDS: CEFEPIME/NS 1 GM/100 ML 1 GM/100 ML BAG IV SCH ×2 (18:52→23:57)
--- NOTE | 2019-10-15 19:10 | Cat Scan Report ---
CT abdomen pelvis w con INDICATION / CLINICAL INFORMATION: MAIN: Sepsis, intra-abdominal source 100ml Omni 300. TECHNIQUE: All CT scans at this location are performed using CT dose reduction for ALARA by means of automated e xposure control. COMPARISON: None available. FINDINGS: Atelectasis is seen in the left lower lung. ABDOMEN: A 5 cm cyst is identified in the posterior segment of the right lobe of the liver. No other significa nt hepatic abnormalities. There is dependent high density in the gallbladder lumen most likely sludge. A PEG tube is positioned intraluminally within the stomach. The spleen is normal. There is mild pancreatic ductal dilatation throughout the gland without evidence of common bile duct dilatation or pancreatic mass. No renal abnormalities. No adrenal masses. No mesenteric or retroperitoneal lymph node enlargement. No small bowel distention or abnormal extra abdominal extraluminal fluid collections. Pelvis: Urinary bladder wall is moderately thickened and there is a small left-sided diverticulum. There is dependent high density within the diverticulum that may represent calculus material. Scattered diverticular disease is seen in the descending and sigmoid colon without evidence of acute diverticulitis. 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 No ac [place] osseous abnormalities. IMPRESSION: 1. No inflammatory changes are seen in the abdomen or pelvis. 2. Calcification within a small left-sided urinary bladder diverticulum. 3. Diverticulosis. 4. 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 5. Slight distention of the pancreatic duct, etiology unknown. Signer Name: Cornelius Villa MD Signed: 10/15/2019 7:05 PM Workstation Name: [email or web address]
[2019-10-16] MEDS: HEPARIN 5,000 UNIT/1 ML VIAL SUB-Q SCH ×3 (06:12→22:00)
[2019-10-16 07:06] LABS: Hematocrit 26.6 % (35.5-45.6); Mean Corpuscular HGB Conc 34 % (32-34); Mean Corpuscular Volume 91 fl (84-94); Platelet Count 739 K/mm3 (140-440); Red Blood Count 2.94 M/mm3 (3.65-5.03); Red Cell Distribution Width 13.7 % (13.2-15.2)
[2019-10-16 07:30] LABS: BUN/Creatinine Ratio 33; Blood Urea Nitrogen 13 mg/dL (9-20); Hemolysis Index 2
[2019-10-16] MEDS: CEFEPIME/NS 1 GM/100 ML 1 GM/100 ML BAG IV SCH (08:25)
[2019-10-16] MEDS: metroNIDAZOLE/NS 500 MG/100 ML 500 MG/100 ML BAG IV SCH (08:36)
[2019-10-16] MEDS: SODIUM CHLORIDE 0.9% 1000 ML 1,000 ML IV SCH ×2 (08:36→18:35)
[2019-10-16 09:16] LABS: Alanine Aminotransferase 52 units/L (7-56); Albumin 2.3 g/dL (3.9-5)
[2019-10-16 09:19] LABS: Bilirubin,Direct < 0.2 mg/dL (0-0.2)
--- NOTE | 2019-10-16 09:30 | Gastroenterology Progress Note ---
Assessment and Plan Liver: increase LFT's now resolved - suspect due to resolving sepsis - acute hepatitis panel negative - continue follow labs - no need further GI input at this time, will sign off, call if needed Subjective Date of service: 10/16/19 Interval history: - no GI complaints overnight Objective - Constitutional Vitals: Temp Pulse Resp BP Pulse Ox 98.7 F 104 H 20 136/77 96 10/16/19 05:00 10/16/19 05:00 10/16/19 05:00 10/16/19 05:00 10/16/19 05:00 General appearance: no acute distress - EENT Eyes: PERRL - Respiratory Respiratory: bilateral: CTA - Cardiovascular Rhythm: regular Heart Sounds: Present: S1 & S2 - Gastrointestinal General gastrointestinal: Present: soft, non-tender, non-distended - Labs CBC & Chem 7: 10/16/19 06:04 10/16/19 06:04 Labs: Laboratory Results - last 24 hr 10/14/19 10/15/19 10/15/19 18:45 13:07 13:07 WBC RBC Hgb Hct MCV MCH MCHC RDW Plt Count Pathologist Review Sodium Potassium Chloride Carbon Dioxide Anion Gap BUN Creatinine Estimated GFR BUN/Creatinine Ratio Glucose Calcium Total Bilirubin Direct Bilirubin Indirect Bilirubin AST ALT Alkaline Phosphatase Total Protein Albumin Albumin/Globulin Ratio Acetaminophen < 5.0 L Hepatitis A IgM Ab Non-reactive Hep Bs Antigen Non-reactive Hep B Core IgM Ab Non-reactive Hepatitis C Antibody Non-reactive 10/16/19 10/16/19 10/16/19 06:04 06:04 06:04 WBC 15.7 H RBC 2.94 L Hgb 9.0 L Hct 26.6 L MCV 91 MCH 31 MCHC 34 RDW 13.7 Plt Count 739 H Pathologist Review Sodium 145 Potassium 4.4 Chloride 108.9 H Carbon Dioxide 20 L Anion Gap 21 BUN 13 Creatinine 0.4 L Estimated GFR > 60 BUN/Creatinine Ratio 33 Glucose 122 H Calcium 9.0 Total Bilirubin 0.30 Direct Bilirubin < 0.2 Indirect Bilirubin 0.1 AST 22 ALT 52 Alkaline Phosphatase 226 H Total Protein 6.7 Albumin 2.3 L Albumin/Globulin Ratio 0.5 Acetaminophen Hepatitis A IgM Ab Hep Bs Antigen Hep B Core IgM Ab Hepatitis C Antibody
--- NOTE | 2019-10-16 11:57 | Progress Note ---
Assessment and Plan Assessment and plan: 64-year-old male with CVA, right-sided deficits, aphasia, hypertension, status post feeding tube, skilled nursing resident was sent over yesterday due to concerns of abnormal labs, admitted with: Labs were said to have been drawn today patient is said to have had elevated white counts and also abnormally elevated liver enzymes. His liver enzymes on labs done at the skilled nursing shows ALT in the 700s and AST in the 200s. Labs drawn here in this facility showed ALT in the low 100s and AST in the 60s. History could not be gotten from patient but not his head to verbal communications. There has been no history of diarrhea, abdominal pain, fever or chills. Per GI * Elevated LFT likely due to sepsis * Replacement tube 16 Fr was placed successfully using usual antiseptic fashion and confirmed with gurgling noise over stomach with insertion of air. internal balloon was inflated with 5 cc of saline. No immediate complication. * - ok to restart feeding. 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 Plan Supportive care Obtain chest xray concerning the increased wob noted earlier Vascular eval- Chronicity unknown to me on the hypogastric artery Await culture result GI and ID input noted Continue antibiotics and monitor cultures Wound care consult Per family patient has had recurrent infections since at the skilled nursing, have discussed quality versus quantity of life advance care planning discussed with 30 minutes Monitor LFT Anticipate discharge in am if stable DVT/GI PROPHY History Interval history: Patient seen and examined, no new complaints although staff reported that he appeared to have increased WOB, was changed to VM although his oxygen saturation was maintained Hospitalist Physical - Physical exam Narrative exam: VITAL SIGNS: Reviewed. GENERAL: The patient appears normally developed, chronically ill appearing, ON Ventimast contracted mild distress vital signs as documented. HEAD: No signs of head trauma. EYES: Pupils are equal. Extraocular motions intact. EARS: Hearing grossly intact. MOUTH: Oropharynx is normal. NECK: No adenopathy, no JVD. CHEST: Chest with clear breath sounds bilaterally. No wheezes, rales, or rhonchi. CARDIAC: Regular rate and rhythm. S1 and S2, without murmurs, gallops, or rubs. VASCULAR: No Edema. Peripheral pulses normal and equal in all extremities. ABDOMEN: Soft,peg in place Non tender and non distended. No rebound or guar ding, and no masses palpated. Bowel Sounds normal. MUSCULOSKELETAL: Good range of motion of all major joints. Extremities without clubbing, cyanosis or edema. NEUROLOGIC EXAM: awake, non verbal,. right sided weakness. PSYCHIATRIC: Mood emotional. SKIN: detail exam as documented in skin assessment - Constitutional Vitals: Temp Pulse Resp BP Pulse Ox 98.7 F 104 H 20 136/77 96 10/16/19 05:00 10/16/19 05:00 10/16/19 05:00 10/16/19 05:00 10/16/19 05:00 General appearance: Present: no acute distress, cachectic, other (Dry oral mucosa) Results - Labs CBC & Chem 7: 10/16/19 06:04 10/16/19 06:04 Labs: Laboratory Last Values WBC 15.7 K/mm3 (4.5-11.0) H 10/16/19 06:04 RBC 2.94 M/mm3 (3.65-5.03) L 10/16/19 06:04 Hgb 9.0 gm/dl (11.8-15.2) L 10/16/19 06:04 Hct 26.6 % (35.5-45.6) L 10/16/19 06:04 MCV 91 fl (84-94) 10/16/19 06:04 MCH 31 pg (28-32) 10/16/19 06:04 MCHC 34 % (32-34) 10/16/19 06:04 RDW 13.7 % (13.2-15.2) 10/16/19 06:04 Plt Count 739 K/mm3 (140-440) H 10/16/19 06:04 Lymph % (Auto) Sales And Service Specialist 10/15/19 05:31 [place] % (Auto) Sales And Service Specialist 10/15/19 05:31 Eos % (Auto) Sales And Service Specialist 10/15/19 05:31 Baso % (Auto) Sales And Service Specialist 10/15/19 05:31 Lymph # Sales And Service Specialist 10/15/19 05:31 [place] # Sales And Service Specialist 10/15/19 05:31 Eos # Sales And Service Specialist 10/15/19 05:31 Baso # Sales And Service Specialist 10/15/19 05:31 Add Manual Diff Complete 10/15/19 05:31 Total Counted 100 10/15/19 05:31 Seg Neutrophils % Sales And Service Specialist 10/15/19 05:31 Seg Neuts % (Manual) 93.0 % (40.0-70.0) H 10/15/19 05:31 Band Neutrophils % 0 % 10/15/19 05:31 Lymphocytes % (Manual) 5.0 % (13.4-35.0) L 10/15/19 05:31 Reactive Lymphs % (Man) 0 % 10/15/19 05:31 Monocytes % (Manual) 1.0 % (0.0-7.3) 10/15/19 05:31 Eosinophils % (Manual) 0 % (0.0-4.3) 10/15/19 05:31 Basophils % (Manual) 0 % (0.0-1.8) 10/15/19 05:31 Metamyelocytes % 1.0 % 10/15/19 05:31 Myelocytes % 0 % 10/15/19 05:31 Promyelocytes % 0 % 10/15/19 05:31 Blast Cells % 0 % 10/15/19 05:31 Nucleated RBC % Not Reportable 10/15/19 05:31 Seg Neutrophils # Sales And Service Specialist 10/15/19 05:31 Seg Neutrophils # Man 23.5 K/mm3 (1.8-7.7) H 10/15/19 05:31 Band Neutrophils # 0.0 K/mm3 10/15/19 05:31 Lymphocytes # (Manual) 1.3 K/mm3 (1.2-5.4) 10/15/19 05:31 Abs React Lymphs (Man) 0.0 K/mm3 10/15/19 05:31 Monocytes # (Manual) 0.3 K/mm3 (0.0-0.8) 10/15/19 05:31 Eosinophils # (Manual) 0.0 K/mm3 (0.0-0.4) 10/15/19 05:31 Basophils # (Manual) 0.0 K/mm3 (0.0-0.1) 10/15/19 05:31 Metamyelocytes # 0.3 K/mm3 10/15/19 05:31 Myelocytes # 0.0 K/mm3 10/15/19 05:31 Promyelocytes # 0.0 K/mm3 10/15/19 05:31 Blast Cells # 0.0 K/mm3 10/15/19 05:31 Pathologist Review 10/14/19 18:45 WBC Morphology Not Reportable 10/15/19 05:31 Hypersegmented Neuts Not Reportable 10/15/19 05:31 Hyposegmented Neuts Not Reportable 10/15/19 05:31 Hypogranular Neuts Not Reportable 10/15/19 05:31 Smudge Cells Not Reportable 10/15/19 05:31 Toxic Granulation Not Reportable 10/15/19 05:31 Toxic Vacuolation Not Reportable 10/15/19 05:31 Dohle Bodies Not Reportable 10/15/19 05:31 Pelger-Huet Anomaly Not Reportable 10/15/19 05:31 Vidal Rods Not Reportable 10/15/19 05:31 Platelet Estimate Consistent w auto 10/15/19 05:31 Clumped Platelets Not Reportable 10/15/19 05:31 Plt Clumps, EDTA Not Reportable 10/15/19 05:31 Large Platelets 1+ 10/15/19 05:31 Giant Platelets Not Reportable 10/15/19 05:31 Platelet Satelliting Not Reportable 10/15/19 05:31 Plt Morphology Comment Not Reportable 10/15/19 05:31 RBC Morphology Not Reportable 10/15/19 05:31 Dimorphic RBCs Not Reportable 10/15/19 05:31 Polychromasia Not Reportable 10/15/19 05:31 Hypochromasia Not Reportable 10/15/19 05:31 Poikilocytosis Not Reportable 10/15/19 05:31 Anisocytosis 1+ 10/15/19 05:31 Microcytosis Not Reportable 10/15/19 05:31 Macrocytosis Not Reportable 10/15/19 05:31 Spherocytes Not Reportable 10/15/19 05:31 Pappenheimer Bodies Not Reportable 10/15/19 05:31 Sickle Cells Not Reportable 10/15/19 05:31 Target Cells Not Reportable 10/15/19 05:31 Tear Drop Cells Not Reportable 10/15/19 05:31 Ovalocytes Few 10/15/19 05:31 Helmet Cells Not Reportable 10/15/19 05:31 [place] Bodies Not Reportable 10/15/19 05:31 [place] Rings Not Reportable 10/15/19 05:31 [place] Cells Not Reportable 10/15/19 05:31 Bite Cells Not Reportable 10/15/19 05:31 Crenated Cell Not Reportable 10/15/19 05:31 Elliptocytes Not Reportable 10/15/19 05:31 Acanthocytes (Spur) Not Reportable 10/15/19 05:31 Rouleaux Not Reportable 10/15/19 05:31 Hemoglobin C Crystals Not Reportable 10/15/19 05:31 Schistocytes Not Reportable 10/15/19 05:31 Malaria parasites Not Reportable 10/15/19 05:31 Joe Bodies Not Reportable 10/15/19 05:31 Hem Pathologist Commnt No 10/15/19 05:31 PT 13.8 Sec. (12.2-14.9) 10/15/19 05:31 INR 1.05 (0.87-1.13) 10/15/19 05:31 APTT 28.5 Sec. (24.2-36.6) 10/15/19 05:31 Sodium 145 mmol/L (137-145) 10/16/19 06:04 Potassium 4.4 mmol/L (3.6-5.0) 10/16/19 06:04 Chloride 108.9 mmol/L (98-107) H 10/16/19 06:04 Carbon Dioxide 20 mmol/L (22-30) L 10/16/19 06:04 Anion Gap 21 mmol/L 10/16/19 06:04 BUN 13 mg/dL (9-20) 10/16/19 06:04 Creatinine 0.4 mg/dL (0.8-1.5) L 10/16/19 06:04 Estimated GFR > 60 ml/min 10/16/19 06:04 BUN/Creatinine Ratio 33 % 10/16/19 06:04 Glucose 122 mg/dL (75-100) H 10/16/19 06:04 Lactic Acid 1.70 mmol/L (0.7-2.0) 10/14/19 19:00 Calcium 9.0 mg/dL (8.4-10.2) 10/16/19 06:04 Total Bilirubin 0.30 mg/dL (0.1-1.2) 10/16/19 06:04 Direct Bilirubin < 0.2 mg/dL (0-0.2) 10/16/19 06:04 Indirect Bilirubin 0.1 mg/dL 10/16/19 06:04 AST 22 units/L (5-40) 10/16/19 06:04 ALT 52 units/L (7-56) 10/16/19 06:04 Alkaline Phosphatase 226 units/L (35-129) H 10/16/19 06:04 Total Protein 6.7 g/dL (6.3-8.2) 10/16/19 06:04 Albumin 2.3 g/dL (3.9-5) L 10/16/19 06:04 Albumin/Globulin Ratio 0.5 % 10/16/19 06:04 Urine Color Sadie (Yellow) 10/14/19 19:35 Urine Turbidity Cloudy (Clear) 10/14/19 19:35 Urine pH 5.0 (5.0-7.0) 10/14/19 19:35 Ur Specific [place] 1.026 (1.003-1.030) 10/14/19 19:35 Urine Protein 30 mg/dl mg/dL (Negative) 10/14/19 19:35 Urine Glucose (UA) Neg mg/dL (Negative) 10/14/19 19:35 Urine Ketones Neg mg/dL (Negative) 10/14/19 19:35 Urine Blood Neg (Negative) 10/14/19 19:35 Urine Nitrite Neg (Negative) 10/14/19 19:35 Urine Bilirubin Neg (Negative) 10/14/19 19:35 Urine Urobilinogen 4.0 mg/dL (<2.0) 10/14/19 19:35 Ur Leukocyte Esterase Mod (Negative) 10/14/19 19:35 Urine WBC (Auto) 157.0 /HPF (0.0-6.0) H 10/14/19 19:35 Urine RBC (Auto) 16.0 /HPF (0.0-6.0) 10/14/19 19:35 U Epithel Cells (Auto) 2.0 /HPF (0-13.0) 10/14/19 19:35 Urine Bacteria (Auto) 4+ /HPF (Negative) 10/14/19 19:35 Urine Mucus 2+ /HPF 10/14/19 19:35 Acetaminophen < 5.0 ug/mL (10.0-30.0) L 10/15/19 13:07 Hepatitis A IgM Ab Non-reactive (NonReactive) 10/15/19 13:07 Hep Bs Antigen Non-reactive (Negative) 10/15/19 13:07 Hep B Core IgM Ab Non-reactive (NonReactive) 10/15/19 13:07 Hepatitis C Antibody Non-reactive (NonReactive) 10/15/19 13:07 Active Medications - Current Medications Current Medications: Generic Name Dose Route Start Last Admin Trade Name Freq PRN Reason Stop Dose Admin Acetaminophen 650 mg 10/14/19 22:04 10/15/19 12:26 Tylenol PO 650 mg Q4H PRN Administration Pain MILD(1-3)/Fever >100.5/MARK Heparin Sodium (Porcine) 5,000 unit 10/15/19 06:00 10/16/19 06:12 Heparin SUB-Q 5,000 unit Q8HR FCO Administration Sodium Chloride 1,000 mls @ 125 mls/hr 10/14/19 22:15 10/16/19 08:36 Nacl 0.9% 1000 Ml IV 125 mls/hr DIRECT FCO Administration Sodium Chloride 1,000 mls @ 0 mls/hr 10/15/19 12:45 10/15/19 15:20 Nacl 0.9% 1000 Ml IV 10/16/19 12:46 999 mls/hr ONCE FCO Administration As Directed Cefepime HCl 1 gm in 100 mls @ 200 mls/hr 10/15/19 16:00 10/16/19 08:25 Cefepime/Ns 1 Gm/100 Ml IV 200 mls/hr Q8H FCO Administration Protocol Metronidazole 500 mg in 100 mls @ 100 mls/hr 10/15/19 16:30 10/16/19 08:36 Flagyl 500 Mg/100 Ml IV 100 mls/hr Q8H FCO Administration Protocol Magnesium Hydroxide 30 ml 10/14/19 22:04 Milk Of Magnesia PO Q4H PRN Constipation Morphine Sulfate 2 mg 10/14/19 22:04 10/15/19 23:59 Morphine IV 2 mg Q4H PRN Administration Pain, Moderate (4-6) Ondansetron HCl 4 mg 10/14/19 22:04 Zofran IV Q8H PRN Nausea And Vomiting Sodium Chloride 10 ml 10/15/19 10:00 10/15/19 22:56 Sodium Chloride Flush Syringe 10 Ml IV 10 ml BID FCO Administration Sodium Chloride 10 ml 10/14/19 22:04 10/14/19 23:45 Sodium Chloride Flush Syringe 10 Ml IV 10 ml PRN PRN Administration LINE FLUSH Nutrition/Malnutrition Assess - Dietary Evaluation Nutrition/Malnutrition Findings: Nutrition Notes Start: 10/15/19 10:38 Freq: Status: Active Protocol: Document 10/15/19 10:38 CT (Rec: 10/15/19 10:57 CT [id number]) Co-Sign 10/15/19 10:38 LP Nutrition Notes Need for Assessment generated from: 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 Pt was sleeping at time of visit, pt family member gave report of information. Pt family member stated that pt has had a 10 lb wt loss in 2 months and his UBW is 170-175 lbs. Noted temporal and orbital wasting. Burn Absent Trauma Absent GI Symptoms None Difficulty In Swallowing,Chewing Current % PO Negligible Minimum of two criteria Yes Interpretation of Weight Loss (severe) >5% in 1 month Body Fat Depletion Moderate depletion (severe) Muscle Mass Moderate Depletion (severe) #1 Nutrition Diagnosis Malnutrition Etiology CVA, hx of difficulty chewing and swallowing As Evidenced by Signs and Symptoms fat and muscle wasting, 16.8% wt loss in 2 months Is patient on ventilator? No Is Patient Ambulatory and/or Out of Bed No REE-([facility]-confined to bed) 1747.932 Kcal/Kg value to use for calculation 32 Approximate Energy Requirements Using 2048 kcal/Kg Calculation Used for Recommendations Kcal/kg Additional Notes Protein needs: 94-117 g/kg/day (1.2-1.5 g/kg/day IBW 78kg) Fluid needs: 1 ml/kcal/day Nutrition Intervention Change Diet Order: Start TF Nutrition Support: Jevity 1.2 70 ml/hr (goal rate ) with 120 ml free water flushes q4h Kcal 2,016 Protein (gm) 93 Fluid (mL) 1,355 Goal #1 Initiate TF Goal #2 Meet >75% energy and protein needs via TF Anticipated Discharge Needs: unable to determine at this time Follow-Up By: 10/18/19 Additional Comments Follow up for TF initiation, TF running at rate.
[2019-10-16] MEDS ORDERED: ATORVASTATIN CALCIUM 40 MG FEEDTUBE SCH (12:15)
--- NOTE | 2019-10-16 12:34 | XRay Report ---
CHEST 1 VIEW INDICATION / CLINICAL INFORMATION: respiratory failure. COMPARISON: 08/02/2019 FINDINGS: SUPPORT DEVICES: None. HEART / MEDIASTINUM: No significant abnormality. LUNGS / PLEURA: No significant pulmonary or pleural abnormality. No pneumothorax. ADDITIONAL FINDINGS: No significant additional findings. IMPRESSION: 1. No acute findings. No interval change. Signer Name: Gauri Berumen MD Signed: 10/16/2019 12:30 PM Workstation Name: [id number]
--- NOTE | 2019-10-16 12:35 | Progress Note ---
Assessment and Plan Cultures: 10/14/2019 blood culture: Gram-negative rods 10/14/2019 urine culture: No growth thus far A/P: 64-year-old male with CVA, right-sided deficits, aphasia, hypertension, status post feeding tube, [facility] was sent over yesterday due to concerns of abnormal labs, admitted with: #Sepsis: Source likely UTI vs hepatobiliary/intra-abdominal. CT abdomen pelvis with IV contrast unremarkable for infectious etiology. #Gram-negative bacteremia: Treat empirically with IV cefepime #Urinary tract infection on UA shows significant pyuria. Culture in process #Elevated LFTs: Ultrasound showed sludge in gallbladder. Alk phos is also elevated but overall, LFTs are trending down. #Acute kidney injury: Creatinine improved. Recs: continue empiric IV Cefepime 2 gm q12 hrs Flagyl discontinued follow up final blood culture results to help decide abx elijah Viera MD, FACP [facility] ([facility] C: [phone] O: [phone] F: [phone] Subjective Date of service: 10/16/19 Interval history: No fever. On ventimask. Non verbal at baseline. Discussed with RN. No other i ssues. Objective - Exam Narrative Exam: Physical Exam: Constitutional: awake, mild distress Head, Ears, Nose: Normocephalic, atraumatic. External ears, nose normal Eyes: Conjunctivae/corneas clear. No icterus. No ptosis. Neck: Supple, no meningeal signs Oral: no thrush Cardiovascular: S1, S2 normal, tachy Respiratory: Good air entry, clear to auscultation bilaterally GI: Soft, non tender; bowel sounds +, PEG +, condom cath + Musculoskeletal: No pedal edema, no cyanosis. Skin: No rash or abscess Hem/Lymphatic: No palpable cervical or supraclavicular nodes. No lymphangitis Psych: no agitation Neurological: Awake, non verbal - Constitutional Vitals: Vital Signs Temp Pulse Resp BP Pulse Ox 98.7 F 104 H 20 136/77 96 10/16/19 05:00 10/16/19 05:00 10/16/19 05:00 10/16/19 05:00 10/16/19 05:00 Temperature -Last 24 Hours Temperature 98.7 F Temperature 98.4 F Temperature 98.9 F Temperature 98.9 F - Labs CBC & Chem 7: 10/16/19 06:04 10/16/19 06:04 Labs: Abnormal lab results 10/15/19 10/16/19 10/16/19 Range/Units 13:07 06:04 06:04 WBC 15.7 H (4.5-11.0) K/mm3 RBC 2.94 L (3.65-5.03) M/mm3 Hgb 9.0 L (11.8-15.2) gm/dl Hct 26.6 L (35.5-45.6) % Plt Count 739 H (140-440) K/mm3 Chloride 108.9 H (98-107) mmol/L Carbon Dioxide 20 L (22-30) mmol/L Creatinine 0.4 L (0.8-1.5) mg/dL Glucose 122 H (75-100) mg/dL Alkaline Phosphatase (35-129) units/L Albumin (3.9-5) g/dL Acetaminophen < 5.0 L (10.0-30.0) ug/mL 10/16/19 Range/Units 06:04 WBC (4.5-11.0) K/mm3 RBC (3.65-5.03) M/mm3 Hgb (11.8-15.2) gm/dl Hct (35.5-45.6) % Plt Count (140-440) K/mm3 Chloride (98-107) mmol/L Carbon Dioxide (22-30) mmol/L Creatinine (0.8-1.5) mg/dL Glucose (75-100) mg/dL Alkaline Phosphatase 226 H (35-129) units/L Albumin 2.3 L (3.9-5) g/dL Acetaminophen (10.0-30.0) ug/mL - Imaging and cardiology CT scan - abdomen: report reviewed, image reviewed (no obvious source of infection identified)
--- NOTE | 2019-10-16 15:11 | Consultation ---
History of Present Illness - Reason for Consult Consult date: 10/16/19 Right IIA aneurysm - History of Present Illness 64-year-old male resident of a halfway brought into the hospital for fu rther evaluation for abnormal labs. Labs demonstrated elevated white counts and also abnormally elevated liver enzymes. His liver enzymes on labs done at the halfway shows ALT in the 700s and AST in the 200s. Labs drawn here in this facility showed ALT in the low 100s and AST in the 60s. History could not be gotten from patient but not his head to verbal communications. There has been no history of diarrhea, abdominal pain, fever or chills. The patient is not responsive to verbal communication. Past History Past Medical History: hypertension, stroke (Patient right-sided weakness, aphasia) Past Surgical History: Other (PEG) Social history: other (alcohol (no use since 08/2019)) Family history: other (Unknown) Medications and Allergies Allergies Allergy/AdvReac Type Severity Reaction Status Date / Time No Known Allergies Allergy Unverified 08/01/19 19:30 Home Medications Medication Instructions Recorded Confirmed Last Taken Type Albuterol Sulfate 10/14/19 Unknown History Aspirin [Adult Aspirin] 81 mg PO 10/14/19 Unknown History Atorvastatin Calcium [Lipitor] 40 mg FEEDTUBE 10/14/19 Unknown History Magnesium Oxide 10/14/19 Unknown History Methylphenidate HCl 10/14/19 Unknown History Metoprolol [Lopressor TAB] 50 mg PO BID 10/14/19 10/14/19 Unknown History Polyethylene Glycol 3350 [Miralax 17 gm PO QDAY 10/14/19 10/14/19 Unknown History 3350] Potassium Chloride 40 10/14/19 Unknown History Thiamine [Vitamin B-1] 100 mg PO QDAY 10/14/19 10/14/19 Unknown History Vitamin D3 2,000 UNIT CHEW TAB PRN 10/14/19 Unknown History Active Meds: Active Medications Acetaminophen (Tylenol) 650 mg PO Q4H PRN PRN Reason: Pain MILD(1-3)/Fever >100.5/MARK Last Admin: 10/15/19 12:26 Dose: 650 mg Documented by: Aspirin (Halfprin Ec) 81 mg PO DAILY FCO Atorvastatin Calcium (Lipitor) 40 mg FEEDTUBE QHS FCO Heparin Sodium (Porcine) (Heparin) 5,000 unit SUB-Q Q8HR FCO Last Admin: 10/16/19 06:12 Dose: 5,000 unit Documented by: Sodium Chloride (Nacl 0.9% 1000 Ml) 1,000 mls @ 125 mls/hr IV DIRECT FCO Last Admin: 10/16/19 08:36 Dose: 125 mls/hr Documented by: Cefepime HCl (Cefepime/Ns 2 Gm/100 Ml) 2 gm in 100 mls @ 200 mls/hr IV Q12H FCO; Protocol Magnesium Hydroxide (Milk Of Magnesia) 30 ml PO Q4H PRN PRN Reason: Constipation Metoprolol Tartrate (Metoprolol) 50 mg PO BID FCO Morphine Sulfate (Morphine) 2 mg IV Q4H PRN PRN Reason: Pain, Moderate (4-6) Last Admin: 10/15/19 23:59 Dose: 2 mg Documented by: Ondansetron HCl (Zofran) 4 mg IV Q8H PRN PRN Reason: Nausea And Vomiting Polyethylene Glycol (Miralax 3350) 17 gm PO QDAY [facility] Sodium Chloride (Sodium Chloride Flush Syringe 10 Ml) 10 ml IV BID [facility] Last Admin: 10/15/19 22:56 Dose: 10 ml Documented by: Sodium Chloride (Sodium Chloride Flush Syringe 10 Ml) 10 ml IV PRN PRN PRN Reason: LINE FLUSH Last Admin: 10/14/19 23:45 Dose: 10 ml Documented by: Thiamine HCl (Vitamin B-1) 100 mg PO QDAY [facility] Review of Systems ROS unobtainable: due to mental status Exam - Constitutional Vitals: Temp Pulse Resp BP Pulse Ox 98.5 F 107 H 22 151/78 100 10/16/19 12:47 10/16/19 12:47 10/16/19 12:47 10/16/19 12:47 10/16/19 12:47 General appearance: Present: cachectic, other (not responsive to verbal commands) - Neck Neck: Present: supple - Respiratory Respiratory effort: labored (on Ventimask) - Abdominal General gastrointestinal: Present: soft, non-tender - Psychiatric Psychiatric: no appropriate mood/affect, no cooperative Results - Labs CBC & Chem 7: 10/16/19 06:04 10/16/19 06:04 Labs: Abnormal lab results 10/16/19 10/16/19 10/16/19 Range/Units 06:04 06:04 06:04 WBC 15.7 H (4.5-11.0) K/mm3 RBC 2.94 L (3.65-5.03) M/mm3 Hgb 9.0 L (11.8-15.2) gm/dl Hct 26.6 L (35.5-45.6) % Plt Count 739 H (140-440) K/mm3 Chloride 108.9 H (98-107) mmol/L Carbon Dioxide 20 L (22-30) mmol/L Creatinine 0.4 L (0.8-1.5) mg/dL Glucose 122 H (75-100) mg/dL Alkaline Phosphatase 226 H (35-129) units/L Albumin 2.3 L (3.9-5) g/dL - Imaging and Cardiology CT scan - abdomen: report reviewed, image reviewed Assessment and Plan 64-year-old male with multiple medical issues including aphasia, halfway resident, nonverbally responsive, and severe disability who has an incidental finding of 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 Patient was admitted for urosepsis. No fevers. White blood cell count declining. Although had gram-negative bacteremia, I ordered another set of labs to check for persistent blood cultures. Right internal iliac artery aneurysm is likely atherosclerotic in nature and in such situations would not be treated until it is at least 3-4 cm in size based on guidelines. Unlikely to be mycotic, but reimaging can be obtained if concern arises from lack of response to antibiotics or persistent blood cultures. Can follow-up with [facility] vascular in 6 months.
[2019-10-16] MEDS: CEFEPIME/NS 2 GM/100 ML 2 GM/100 ML BAG IV SCH (16:58)
[2019-10-16] MEDS: ASPIRIN EC 81 MG TAB PO SCH (17:14)
[2019-10-16] MEDS: METOPROLOL TARTRATE 50 MG TAB PO SCH (22:00)
[2019-10-17] MEDS: SODIUM CHLORIDE 0.9% 1000 ML 1,000 ML IV SCH ×3 (02:45→18:45)
[2019-10-17] MEDS: CEFEPIME/NS 2 GM/100 ML 2 GM/100 ML BAG IV SCH (02:46)
[2019-10-17] MEDS: HEPARIN 5,000 UNIT/1 ML VIAL SUB-Q SCH ×3 (05:43→22:02)
--- NOTE | 2019-10-17 08:14 | Gastroenterology Progress Note ---
Assessment and Plan GI: stable w/o GI or liver issues overnight - use peg as needed - f/u LFT's as outpt if needed - call if needed Subjective Date of service: 10/10/19 Interval history: - no GI issues overnight Objective - Constitutional Vitals: Temp Pulse Resp BP Pulse Ox 98.0 F 105 H 22 166/83 99 10/17/19 05:39 10/17/19 05:39 10/17/19 05:39 10/17/19 05:39 10/17/19 05:39 General appearance: no acute distress - EENT Eyes: PERRL - Respiratory Respiratory: bilateral: CTA - Cardiovascular Rhythm: regular Heart Sounds: Present: S1 & S2 - Gastrointestinal General gastrointestinal: Present: soft, non-tender, non-distended - Labs CBC & Chem 7: 10/16/19 06:04 10/16/19 06:04 Labs: Laboratory Results - last 24 hr 10/16/19 10/16/19 06:04 12:23 POC Glucose 133 H Total Bilirubin 0.30 Direct Bilirubin < 0.2 Indirect Bilirubin 0.1 AST 22 ALT 52 Alkaline Phosphatase 226 H Total Protein 6.7 Albumin 2.3 L Albumin/Globulin Ratio 0.5
[2019-10-17] MEDS: METOPROLOL TARTRATE 50 MG TAB PO SCH ×2 (09:47→22:02)
[2019-10-17] MEDS: THIAMINE 100 MG TAB PO SCH (09:47)
[2019-10-17] MEDS: ASPIRIN EC 81 MG TAB PO SCH (09:47)
[2019-10-17] MEDS: POLYETHYLENE GLYCOL 3350 17 GM POWDER PO SCH (09:47)
[2019-10-17] MEDS ORDERED: ALBUTEROL SULFATE 2.5 MG INHALATION PRN (10:09)
[2019-10-17] MEDS ORDERED: NON-FORMULARY EACH (Norvasc 10 MG) FEEDTUBE SCH (10:15)
[2019-10-17] MEDS ORDERED: NON-FORMULARY EACH (Lisinopril 20 MG) FEEDTUBE SCH (10:15)
[2019-10-17] MEDS ORDERED: ALBUTEROL 2.5 MG/3 ML NEBU IH PRN (10:25)
--- NOTE | 2019-10-17 12:13 | Progress Note ---
Assessment and Plan Cultures: 10/14/2019 blood culture: E.coli 10/14/2019 urine culture: No growth thus far A/P: 64-year-old male with CVA, right-sided deficits, aphasia, hypertension, status post feeding tube, correction resident was sent over yesterday due to concerns of abnormal labs, admitted with: #Sepsis: Source likely UTI vs hepatobiliary/intra-abdominal. CT abdomen pelvis with IV contrast unremarkable for infectious etiology. #E.coli bacteremia: pansusceptible, so will de-escalate #Urinary tract infection on UA shows significant pyuria. culture was negative. #Elevated LFTs: Ultrasound showed sludge in gallbladder. Alk phos is also elevated but overall, LFTs are trending down. #Acute kidney injury: Creatinine improved. Recs: Cefepime d/farzaneh IV Ceftriaxone started at the time of discharge, can do PO Levofloxacin 500 mg daily x 5 days Cely Viera MD, FACP [facility] C: [phone] O: [phone] F: [phone] Subjective Date of service: 10/17/19 Interval history: No fever. Non verbal at baseline. No other issues. resp distress seems better. Objective - Exam Narrative Exam: Physical Exam: Constitutional: awake, mild distress Head, Ears, Nose: Normocephalic, atraumatic. External ears, nose normal Eyes: Conjunctivae/corneas clear. No icterus. No ptosis. Neck: Supple, no meningeal signs Oral: no thrush Cardiovascular: S1, S2 normal, tachy Respiratory: Good air entry, clear to auscultation bilaterally GI: Soft, non tender; bowel sounds +, PEG +, condom cath + Musculoskeletal: No pedal edema, no cyanosis. Skin: No rash or abscess Hem/Lymphatic: No palpable cervical or supraclavicular nodes. No lymphangitis Psych: no agitation Neurological: Awake, non verbal - Constitutional Vitals: Vital Signs Temp Pulse Resp BP Pulse Ox 98.0 F 105 H 22 166/83 95 10/17/19 05:39 10/17/19 05:39 10/17/19 05:39 10/17/19 05:39 10/17/19 12:02 Temperature -Last 24 Hours Temperature 98.0 F Temperature 97.7 F Temperature 98.2 F Temperature 98.5 F - Labs CBC & Chem 7: 10/16/19 06:04 10/16/19 06:04 Labs: Abnormal lab results 10/16/19 Range/Units 12:23 POC Glucose 133 H (70-105)
--- NOTE | 2019-10-17 12:40 | Cat Scan Report ---
CT CHEST WITHOUT CONTRAST INDICATION / CLINICAL INFORMATION: MAIN: shortness of breath wo contrast pt unable to raise arms. TECHNIQUE: Axial CT images were obtained through the chest without contrast. All CT scans at this location are p erformed using CT dose reduction for ALARA by means of automated exposure control. COMPARISON: No prior chest CT. CT abdomen dated 10/15/19 FINDINGS: HEART: No significant abnormality. THORACIC AORTA: No significant abnormality. MEDIASTINUM and ADRYAN: No significant abnormality. LUNGS: Near-complete left lower lobe atelectasis. No definite central obstructing lesion noted. Mini mal right lung base atelectasis. PLEURA: No significant pleural effusion. No pneumothorax. ADDITIONAL FINDINGS: None. UPPER ABDOMEN: No significant abnormality. SKELETAL SYSTEM: No significant abnormality. IMPRESSION: 1. Near complete left lower lobe atelectasis without definite central obstructing lesion. Signer Name: Maria Ines Stringer MD Signed: 10/17/2019 12:35 PM Workstation Name: [id number]
[2019-10-17] MEDS: IPRATROPIUM/ALBUTEROL SULFATE 3 ML AMPUL.NEB IH SCH ×2 (14:15→21:34)
--- NOTE | 2019-10-17 14:45 | Progress Note ---
Assessment and Plan Assessment and plan: 64-year-old male with CVA, right-sided deficits, aphasia, hypertension, status post feeding tube, alf resident was sent over yesterday due to concerns of abnormal labs, admitted with: Labs were said to have been drawn today patient is said to have had elevated white counts and also abnormally elevated liver enzymes. His liver enzymes on labs done at the alf shows ALT in the 700s and AST in the 200s. Labs drawn here in this facility showed ALT in the low 100s and AST in the 60s. History could not be gotten from patient but not his head to verbal communications. There has been no history of diarrhea, abdominal pain, fever or chills. Per GI * Elevated LFT likely due to sepsis * Replacement tube 16 Fr was placed successfully using usual antiseptic fashion and confirmed with gurgling noise over stomach with insertion of air. internal balloon was inflated with 5 cc of saline. No immediate complication. * - ok to restart feeding. 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 and still on VM although his oxygen saturation was maintained Hospitalist Physical - Physical exam Narrative exam: VITAL SIGNS: Reviewed. GENERAL: The patient appears normally developed, chronically ill appearing, ON Ventimast contracted mild distress vital signs as documented. HEAD: No signs of head trauma. EYES: Pupils are equal. Extraocular motions intact. EARS: Hearing grossly intact. MOUTH: Oropharynx is normal. NECK: No adenopathy, no JVD. Increased wob CHEST: Chest with diminished breath sounds bilaterally. No wheezes, rales, or rhonchi. CARDIAC: Regular rate and rhythm. S1 and S2, without murmurs, gallops, or rubs. VASCULAR: No Edema. Peripheral pulses normal and equal in all extremities. ABDOMEN: Soft,peg in place Non tender and non distended. No rebound or guarding, and no masses palpated. Bowel Sounds normal. MUSCULOSKELETAL: Good range of motion of all major joints. Extremities without clubbing, cyanosis or edema. NEUROLOGIC EXAM: awake, non verbal,. right sided weakness. PSYCHIATRIC: Mood emotional. SKIN: detail exam as documented in skin assessment - Constitutional Vitals: Temp Pulse Resp BP Pulse Ox 98.0 F 98 H 20 166/83 95 10/17/19 05:39 10/17/19 14:31 10/17/19 14:31 10/17/19 05:39 10/17/19 12:02 General appearance: Present: cachectic, other (not responsive to verbal commands) Results - Labs CBC & Chem 7: 10/16/19 06:04 10/16/19 06:04 Labs: Laboratory Last Values WBC 15.7 K/mm3 (4.5-11.0) H 10/16/19 06:04 RBC 2.94 M/mm3 (3.65-5.03) L 10/16/19 06:04 Hgb 9.0 gm/dl (11.8-15.2) L 10/16/19 06:04 Hct 26.6 % (35.5-45.6) L 10/16/19 06:04 MCV 91 fl (84-94) 10/16/19 06:04 MCH 31 pg (28-32) 10/16/19 06:04 MCHC 34 % (32-34) 10/16/19 06:04 RDW 13.7 % (13.2-15.2) 10/16/19 06:04 Plt Count 739 K/mm3 (140-440) H 10/16/19 06:04 Lymph % (Auto) Automobile Body Customizer 10/15/19 05:31 [place] % (Auto) Automobile Body Customizer 10/15/19 05:31 Eos % (Auto) Automobile Body Customizer 10/15/19 05:31 Baso % (Auto) Automobile Body Customizer 10/15/19 05:31 Lymph # Automobile Body Customizer 10/15/19 05:31 [place] # Automobile Body Customizer 10/15/19 05:31 Eos # Automobile Body Customizer 10/15/19 05:31 Baso # Automobile Body Customizer 10/15/19 05:31 Add Manual Diff Complete 10/15/19 05:31 Total Counted 100 10/15/19 05:31 Seg Neutrophils % Automobile [employer] Customizer 10/15/19 05:31 Seg Neuts % (Manual) 93.0 % (40.0-70.0) H 10/15/19 05:31 Band Neutrophils % 0 % 10/15/19 05:31 Lymphocytes % (Manual) 5.0 % (13.4-35.0) L 10/15/19 05:31 Reactive Lymphs % (Man) 0 % 10/15/19 05:31 Monocytes % (Manual) 1.0 % (0.0-7.3) 10/15/19 05:31 Eosinophils % (Manual) 0 % (0.0-4.3) 10/15/19 05:31 Basophils % (Manual) 0 % (0.0-1.8) 10/15/19 05:31 Metamyelocytes % 1.0 % 10/15/19 05:31 Myelocytes % 0 % 10/15/19 05:31 Promyelocytes % 0 % 10/15/19 05:31 Blast Cells % 0 % 10/15/19 05:31 Nucleated RBC % Not Reportable 10/15/19 05:31 Seg Neutrophils # Automobile Body Customizer 10/15/19 05:31 Seg Neutrophils # Man 23.5 K/mm3 (1.8-7.7) H 10/15/19 05:31 Band Neutrophils # 0.0 K/mm3 10/15/19 05:31 Lymphocytes # (Manual) 1.3 K/mm3 (1.2-5.4) 10/15/19 05:31 Abs React Lymphs (Man) 0.0 K/mm3 10/15/19 05:31 Monocytes # (Manual) 0.3 K/mm3 (0.0-0.8) 10/15/19 05:31 Eosinophils # (Manual) 0.0 K/mm3 (0.0-0.4) 10/15/19 05:31 Basophils # (Manual) 0.0 K/mm3 (0.0-0.1) 10/15/19 05:31 Metamyelocytes # 0.3 K/mm3 10/15/19 05:31 Myelocytes # 0.0 K/mm3 10/15/19 05:31 Promyelocytes # 0.0 K/mm3 10/15/19 05:31 Blast Cells # 0.0 K/mm3 10/15/19 05:31 Pathologist Review 10/14/19 18:45 WBC Morphology Not Reportable 10/15/19 05:31 Hypersegmented Neuts Not Reportable 10/15/19 05:31 Hyposegmented Neuts Not Reportable 10/15/19 05:31 Hypogranular Neuts Not Reportable 10/15/19 05:31 Smudge Cells Not Reportable 10/15/19 05:31 Toxic Granulation Not Reportable 10/15/19 05:31 Toxic Vacuolation Not Reportable 10/15/19 05:31 Dohle Bodies Not Reportable 10/15/19 05:31 Pelger-Huet Anomaly Not Reportable 10/15/19 05:31 Vidal Rods Not Reportable 10/15/19 05:31 Platelet Estimate Consistent w auto 10/15/19 05:31 Clumped Platelets Not Reportable 10/15/19 05:31 Plt Clumps, EDTA Not Reportable 10/15/19 05:31 Large Platelets 1+ 10/15/19 05:31 Giant Platelets Not Reportable 10/15/19 05:31 Platelet Satelliting Not Reportable 10/15/19 05:31 Plt Morphology Comment Not Reportable 10/15/19 05:31 RBC Morphology Not Reportable 10/15/19 05:31 Dimorphic RBCs Not Reportable 10/15/19 05:31 Polychromasia Not Reportable 10/15/19 05:31 Hypochromasia Not Reportable 10/15/19 05:31 Poikilocytosis Not Reportable 10/15/19 05:31 Anisocytosis 1+ 10/15/19 05:31 Microcytosis Not Reportable 10/15/19 05:31 Macrocytosis Not Reportable 10/15/19 05:31 Spherocytes Not Reportable 10/15/19 05:31 Pappenheimer Bodies Not Reportable 10/15/19 05:31 Sickle Cells Not Reportable 10/15/19 05:31 Target Cells Not Reportable 10/15/19 05:31 Tear Drop Cells Not Reportable 10/15/19 05:31 Ovalocytes Few 10/15/19 05:31 Helmet Cells Not Reportable 10/15/19 05:31 [place] Bodies Not Reportable 10/15/19 05:31 [place] Rings Not Reportable 10/15/19 05:31 [place] Cells Not Reportable 10/15/19 05:31 Bite Cells Not Reportable 10/15/19 05:31 Crenated Cell Not Reportable 10/15/19 05:31 Elliptocytes Not Reportable 10/15/19 05:31 Acanthocytes (Spur) Not Reportable 10/15/19 05:31 Rouleaux Not Reportable 10/15/19 05:31 Hemoglobin C Crystals Not Reportable 10/15/19 05:31 Schistocytes Not Reportable 10/15/19 05:31 Malaria parasites Not Reportable 10/15/19 05:31 Joe Bodies Not Reportable 10/15/19 05:31 Hem Pathologist Commnt No 10/15/19 05:31 PT 13.8 Sec. (12.2-14.9) 10/15/19 05:31 INR 1.05 (0.87-1.13) 10/15/19 05:31 APTT 28.5 Sec. (24.2-36.6) 10/15/19 05:31 POC ABG pH 7.444 (7.35-7.45) 10/17/19 12:10 POC ABG pCO2 37.0 (35-45) 10/17/19 12:10 POC ABG pO2 68 (80-105) L 10/17/19 12:10 POC ABG HCO3 25.4 (22-26 mml/L) 10/17/19 12:10 POC ABG Total CO2 26 (23-27mmol/L) 10/17/19 12:10 POC ABG O2 Sat 94 10/17/19 12:10 POC ABG Base Excess 1 ((-2) - (+3)mmol/L) 10/17/19 12:10 FiO2 21 % 10/17/19 12:10 Sodium 145 mmol/L (137-145) 10/16/19 06:04 Potassium 4.4 mmol/L (3.6-5.0) 10/16/19 06:04 Chloride 108.9 mmol/L (98-107) H 10/16/19 06:04 Carbon Dioxide 20 mmol/L (22-30) L 10/16/19 06:04 Anion Gap 21 mmol/L 10/16/19 06:04 BUN 13 mg/dL (9-20) 10/16/19 06:04 Creatinine 0.4 mg/dL (0.8-1.5) L 10/16/19 06:04 Estimated GFR > 60 ml/min 10/16/19 06:04 BUN/Creatinine Ratio 33 % 10/16/19 06:04 Glucose 122 mg/dL (75-100) H 10/16/19 06:04 POC Glucose 133 (70-105) H 10/16/19 12:23 Lactic Acid 1.70 mmol/L (0.7-2.0) 10/14/19 19:00 Calcium 9.0 mg/dL (8.4-10.2) 10/16/19 06:04 Total Bilirubin 0.30 mg/dL (0.1-1.2) 10/16/19 06:04 Direct Bilirubin < 0.2 mg/dL (0-0.2) 10/16/19 06:04 Indirect Bilirubin 0.1 mg/dL 10/16/19 06:04 AST 22 units/L (5-40) 10/16/19 06:04 ALT 52 units/L (7-56) 10/16/19 06:04 Alkaline Phosphatase 226 units/L (35-129) H 10/16/19 06:04 Total Protein 6.7 g/dL (6.3-8.2) 10/16/19 06:04 Albumin 2.3 g/dL (3.9-5) L 10/16/19 06:04 Albumin/Globulin Ratio 0.5 % 10/16/19 06:04 Urine Color Sadie (Yellow) 10/14/19 19:35 Urine Turbidity Cloudy (Clear) 10/14/19 19:35 Urine pH 5.0 (5.0-7.0) 10/14/19 19:35 Ur Specific [place] 1.026 (1.003-1.030) 10/14/19 19:35 Urine Protein 30 mg/dl mg/dL (Negative) 10/14/19 19:35 Urine Glucose (UA) Neg mg/dL (Negative) 10/14/19 19:35 Urine Ketones Neg mg/dL (Negative) 10/14/19 19:35 Urine Blood Neg (Negative) 10/14/19 19:35 Urine Nitrite Neg (Negative) 10/14/19 19:35 Urine Bilirubin Neg (Negative) 10/14/19 19:35 Urine Urobilinogen 4.0 mg/dL (<2.0) 10/14/19 19:35 Ur Leukocyte Esterase Mod (Negative) 10/14/19 19:35 Urine WBC (Auto) 157.0 /HPF (0.0-6.0) H 10/14/19 19:35 Urine RBC (Auto) 16.0 /HPF (0.0-6.0) 10/14/19 19:35 U Epithel Cells (Auto) 2.0 /HPF (0-13.0) 10/14/19 19:35 Urine Bacteria (Auto) 4+ /HPF (Negative) 10/14/19 19:35 Urine Mucus 2+ /HPF 10/14/19 19:35 Acetaminophen < 5.0 ug/mL (10.0-30.0) L 10/15/19 13:07 Hepatitis A IgM Ab Non-reactive (NonReactive) 10/15/19 13:07 Hep Bs Antigen Non-reactive (Negative) 10/15/19 13:07 Hep B Core IgM Ab Non-reactive (NonReactive) 10/15/19 13:07 Hepatitis C Antibody Non-reactive (NonReactive) 10/15/19 13:07 Active Medications - Current Medications Current Medications: Generic Name Dose Route Start Last Admin Trade Name Freq PRN Reason Stop Dose Admin Acetaminophen 650 mg 10/14/19 22:04 10/15/19 12:26 Tylenol PO 650 mg Q4H PRN Administration Pain MILD(1-3)/Fever >100.5/MARK Albuterol 2.5 mg 10/17/19 10:25 Proventil IH Q4HRT PRN Shortness Of Breath Albuterol/Ipratropium 1 ampul 10/17/19 14:00 10/17/19 14:15 Duoneb *Not For Prn Use* IH 1 ampul Q6HRT FCO Administration Amlodipine Besylate 10 mg 10/17/19 12:00 Amlodipine FEEDTUBE DAILY FCO Aspirin 81 mg 10/16/19 13:00 10/17/19 09:47 Halfprin Ec PO 81 mg DAILY FCO Administration Atorvastatin Calcium 40 mg 10/16/19 22:00 12/14/19 22:01 Lipitor FEEDTUBE 40 mg QHS FCO Administration Fluoxetine HCl 20 mg 10/18/19 10:00 Prozac FEEDTUBE QDAY FCO Heparin Sodium (Porcine) 5,000 unit 10/15/19 06:00 10/17/19 05:43 Heparin SUB-Q 5,000 unit Q8HR FCO Administration Sodium Chloride 1,000 mls @ 125 mls/hr 10/14/19 22:15 10/17/19 10:58 Nacl 0.9% 1000 Ml IV 125 mls/hr DIRECT FCO Administration Ceftriaxone Sodium 1 gm in 50 mls @ 100 mls/hr 10/17/19 14:00 Rocephin/Ns 1 Gm/50 Ml IV Q24H [facility] Protocol Lisinopril 20 mg 10/17/19 12:00 Zestril PO QDAY FCO Magnesium Hydroxide 30 ml 10/14/19 22:04 Milk Of Magnesia PO Q4H PRN Constipation Magnesium Oxide 400 mg 10/18/19 10:00 Mag-Ox PO QDAY FCO Methylphenidate HCl 5 mg 10/18/19 10:00 Ritalin PO QDAY FCO Metoprolol Tartrate 50 mg 10/16/19 22:00 10/17/19 09:47 Metoprolol PO 50 mg BID FCO Administration Morphine Sulfate 2 mg 10/14/19 22:04 10/15/19 23:59 Morphine IV 2 mg Q4H PRN Administration Pain, Moderate (4-6) Ondansetron HCl 4 mg 10/14/19 22:04 Zofran IV Q8H PRN Nausea And Vomiting Polyethylene Glycol 17 gm 10/17/19 10:00 10/17/19 09:47 Miralax 3350 PO 17 gm QDAY FCO Administration Potassium Chloride 40 meq 10/17/19 22:00 Potassium Chloride FEEDTUBE BID FCO Sodium Chloride 10 ml 10/15/19 10:00 10/17/19 09:48 Sodium Chloride Flush Syringe 10 Ml IV 10 ml BID FCO Administration Sodium Chloride 10 ml 10/14/19 22:04 10/14/19 23:45 Sodium Chloride Flush Syringe 10 Ml IV 10 ml PRN PRN Administration LINE FLUSH Thiamine HCl 100 mg 10/17/19 10:00 10/17/19 09:47 Vitamin B-1 PO 100 mg QDAY FCO Administration Nutrition/Malnutrition Assess - Dietary Evaluation Nutrition/Malnutrition Findings: Nutrition Notes Start: 10/15/19 10:38 Freq: Status: Active Protocol: Document 10/15/19 10:38 CT (Rec: 10/15/19 10:57 CT [id number]) Co-Sign 10/15/19 10:38 LP Nutrition Notes Need for Assessment generated from: MD 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 Pt was sleeping at time of visit, pt family member gave report of information. Pt family member stated that pt has had a 10 lb wt loss in 2 months and his UBW is 170-175 lbs. Noted temporal and orbital wasting. Burn Absent Trauma Absent GI Symptoms None Difficulty In Swallowing,Chewing Current % PO Negligible Minimum of two criteria Yes Interpretation of Weight Loss (severe) >5% in 1 month Body Fat Depletion Moderate depletion (severe) Muscle Mass Moderate Depletion (severe) #1 Nutrition Diagnosis Malnutrition Etiology CVA, hx of difficulty chewing and swallowing As Evidenced by Signs and Symptoms fat and muscle wasting, 16.8% wt loss in 2 months Is patient on ventilator? No Is Patient Ambulatory and/or Out of Bed No REE-([facility]-confined to bed) 1747.932 Kcal/Kg value to use for calculation 32 Approximate Energy Requirements Using 2048 kcal/Kg Calculation Used for Recommendations Kcal/kg Additional Notes Protein needs: 94-117 g/kg/day (1.2-1.5 g/kg/day IBW 78kg) Fluid needs: 1 ml/kcal/day Nutrition Intervention Change Diet Order: Start TF Nutrition Support: Jevity 1.2 70 ml/hr (goal rate ) with 120 ml free water flushes q4h Kcal 2,016 Protein (gm) 93 Fluid (mL) 1,355 Goal #1 Initiate TF Goal #2 Meet >75% energy and protein needs via TF Anticipated Discharge Needs: unable to determine at this time Follow-Up By: 10/18/19 Additional Comments Follow up for TF initiation, TF running at rate.
[2019-10-17 15:37] LABS: Basophils % (Auto) 0.4 % (0.0-1.8); Eosinophils # (Auto) 0.2 K/mm3 (0.0-0.4); Eosinophils % (Auto) 1.6 % (0.0-4.3); Hematocrit 26.1 % (35.5-45.6); Hemoglobin 8.9 gm/dl (11.8-15.2); Lymphocytes # (Auto) 1.5 K/mm3 (1.2-5.4); Lymphocytes % (Auto) 14.8 % (13.4-35.0); Mean Corpuscular HGB Conc 34 % (32-34); Mean Corpuscular Volume 90 fl (84-94); Monocytes # (Auto) 0.8 K/mm3 (0.0-0.8); Monocytes % (Auto) 7.8 % (0.0-7.3); Platelet Count 774 K/mm3 (140-440); Red Blood Count 2.91 M/mm3 (3.65-5.03); Red Cell Distribution Width 13.7 % (13.2-15.2)
[2019-10-17] MEDS: amLODIPine 10 MG TAB FEEDTUBE SCH (18:42)
[2019-10-17] MEDS: LISINOPRIL 20 MG TAB PO SCH (18:42)
[2019-10-17] MEDS: cefTRIAXone/NS 1 GM/50 ML 1 GM/50 ML BAG IV SCH (18:45)
--- NOTE | 2019-10-17 21:01 | Consultation ---
History of Present Illness Consult date: 10/17/19 Requesting physician: DANIEL MATUTE Reason for consult: other (SOB) History of present illness: 64 yo s/p recent ischemic CVA and hemorrhagic conversion post-TPA, now aphasic, with dysphagia s/p PEG, and bed-bound at [facility] with R hemiparesis. He is admitted with UTI, bacteremia, sepsis. He is noted to have increased SOB and is requiring VM currently. He is a poor historian, so most of hx is obtained via chart review and d/w RN. Active Medications Acetaminophen (Tylenol) 650 mg PO Q4H PRN PRN Reason: Pain MILD(1-3)/Fever >100.5/MARK Last Admin: 10/15/19 12:26 Dose: 650 mg Documented by: Albuterol (Proventil) 2.5 mg IH Q4HRT PRN PRN Reason: Shortness Of Breath Albuterol/Ipratropium (Duoneb *Not For Prn Use*) 1 ampul IH Q6HRT [facility] Last Admin: 10/17/19 14:15 Dose: 1 ampul Documented by: Amlodipine Besylate (Amlodipine) 10 mg FEEDTUBE DAILY [facility] Last Admin: 10/17/19 18:42 Dose: 10 mg Documented by: Arformoterol Tartrate (Brovana Nebu) 15 mcg IH Q12HRT [facility] Aspirin (Halfprin Ec) 81 mg PO DAILY [facility] Last Admin: 10/17/19 09:47 Dose: 81 mg Documented by: Atorvastatin Calcium (Lipitor) 40 mg FEEDTUBE QHS [facility] Last Admin: 10/16/19 22:01 Dose: 40 mg Documented by: Budesonide (Pulmicort) 0.5 mg IH Q12HRT [facility] Fluoxetine HCl (Prozac) 20 mg FEEDTUBE QDAY [facility] Guaifenesin (Robitussin) 200 mg PO Q4H [facility] Heparin Sodium (Porcine) (Heparin) 5,000 unit SUB-Q Q8HR [facility] Last Admin: 10/17/19 14:00 Dose: Not Given Documented by: Sodium Chloride (Nacl 0.9% 1000 Ml) 1,000 mls @ 125 mls/hr IV DIRECT [facility] Last Admin: 10/17/19 18:45 Dose: 125 mls/hr Documented by: Ceftriaxone Sodium (Rocephin/Ns 1 Gm/50 Ml) 1 gm in 50 mls @ 100 mls/hr IV Q24H [facility]; Protocol Last Admin: 10/17/19 18:45 Dose: 100 mls/hr Documented by: Lisinopril (Zestril) 20 mg PO QDAY [facility] Last Admin: 10/17/19 18:42 Dose: 20 mg Documented by: Magnesium Hydroxide (Milk Of Magnesia) 30 ml PO Q4H PRN PRN Reason: Constipation Magnesium Oxide (Mag-Ox) 400 mg PO QDAY [facility] Methylphenidate HCl (Ritalin) 5 mg PO QDAY [facility] Metoprolol Tartrate (Metoprolol) 50 mg PO BID [facility] Last Admin: 10/17/19 09:47 Dose: 50 mg Documented by: Morphine Sulfate (Morphine) 2 mg IV Q4H PRN PRN Reason: Pain, Moderate (4-6) Last Admin: 10/15/19 23:59 Dose: 2 mg Documented by: Ondansetron HCl (Zofran) 4 mg IV Q8H PRN PRN Reason: Nausea And Vomiting Polyethylene Glycol (Miralax 3350) 17 gm PO QDAY [facility] Last Admin: 10/17/19 09:47 Dose: 17 gm Documented by: Potassium Chloride (Potassium Chloride) 40 meq FEEDTUBE BID [facility] Sodium Chloride (Sodium Chloride Flush Syringe 10 Ml) 10 ml IV BID [facility] Last Admin: 10/17/19 09:48 Dose: 10 ml Documented by: Sodium Chloride (Sodium Chloride Flush Syringe 10 Ml) 10 ml IV PRN PRN PRN Reason: LINE FLUSH Last Admin: 10/14/19 23:45 Dose: 10 ml Documented by: Thiamine HCl (Vitamin B-1) 100 mg PO QDAY [facility] Last Admin: 10/17/19 09:47 Dose: 100 mg Documented by: Past History Past Medical History: hypertension, stroke (Patient right-sided weakness, aphasia) Past Surgical History: Other (PEG) Social history: full code, other (alcohol (no use since 08/2019)). denies: smoking, alcohol abuse, prescription drug abuse, IV drug use Family history: other (No pulm issues reported) Medications and Allergies Allergies Allergy/AdvReac Type Severity Reaction Status Date / Time No Known Allergies Allergy Unverified 08/01/19 19:30 Home Medications Medication Instructions Recorded Confirmed Last Taken Type Albuterol Sulfate 2.5 mg INHALATION Q2HR PRN 10/14/19 10/17/19 Unknown History Aspirin [Adult Aspirin] 81 mg PO QDAY 10/14/19 10/17/19 Unknown History Atorvastatin Calcium [Lipitor] 40 mg FEEDTUBE QHS 10/14/19 10/17/19 Unknown History Magnesium Oxide 400 mg PO QDAY 10/14/19 10/17/19 Unknown History Methylphenidate HCl 5 mg FEEDTUBE QDAY 10/14/19 10/17/19 Unknown History Metoprolol [Lopressor TAB] 50 mg PO BID 10/14/19 10/14/19 Unknown History Polyethylene Glycol 3350 [Miralax 17 gm PO QDAY 10/14/19 10/14/19 Unknown Histo ry 3350] Potassium Chloride 40 meq FEEDTUBE BID 10/14/19 10/17/19 Unknown History Thiamine [Vitamin B-1] 100 mg PO QDAY 10/14/19 10/14/19 Unknown History Vitamin D3 2,000 UNIT CHEW TAB 2,000 units FEEDTUBE DAILY 10/14/19 10/17/19 Unknown History FLUoxetine HCL [Prozac] 20 mg FEEDTUBE QDAY 10/17/19 10/17/19 Unknown History Lisinopril 20 mg FEEDTUBE QDAY 10/17/19 10/17/19 Unknown History Melatonin 5MG TAB 5 mg PO QHS PRN 10/17/19 10/17/19 Unknown History Norvasc 10 mg FEEDTUBE QDAY 10/17/19 10/17/19 Unknown History Active Meds: Active Medications Acetaminophen (Tylenol) 650 mg PO Q4H PRN PRN Reason: Pain MILD(1-3)/Fever >100.5/MARK Last Admin: 10/15/19 12:26 Dose: 650 mg Documented by: Albuterol (Proventil) 2.5 mg IH Q4HRT PRN PRN Reason: Shortness Of Breath Albuterol/Ipratropium (Duoneb *Not For Prn Use*) 1 ampul IH Q6HRT [facility] Last Admin: 10/17/19 14:15 Dose: 1 ampul Documented by: Amlodipine Besylate (Amlodipine) 10 mg FEEDTUBE DAILY [facility] Last Admin: 10/17/19 18:42 Dose: 10 mg Documented by: Arformoterol Tartrate (Brovana Nebu) 15 mcg IH Q12HRT [facility] Aspirin (Halfprin Ec) 81 mg PO DAILY [facility] Last Admin: 10/17/19 09:47 Dose: 81 mg Documented by: Atorvastatin Calcium (Lipitor) 40 mg FEEDTUBE QHS [facility] Last Admin: 10/16/19 22:01 Dose: 40 mg Documented by: Budesonide (Pulmicort) 0.5 mg IH Q12HRT [facility] Fluoxetine HCl (Prozac) 20 mg FEEDTUBE QDAY [facility] Guaifenesin (Robitussin) 200 mg PO Q4H [facility] Heparin Sodium (Porcine) (Heparin) 5,000 unit SUB-Q Q8HR [facility] Last Admin: 10/17/19 14:00 Dose: Not Given Documented by: Sodium Chloride (Nacl 0.9% 1000 Ml) 1,000 mls @ 125 mls/hr IV DIRECT [facility] Last Admin: 10/17/19 18:45 Dose: 125 mls/hr Documented by: Ceftriaxone Sodium (Rocephin/Ns 1 Gm/50 Ml) 1 gm in 50 mls @ 100 mls/hr IV Q24H [facility]; Protocol Last Admin: 10/17/19 18:45 Dose: 100 mls/hr Documented by: Lisinopril (Zestril) 20 mg PO QDAY [facility] Last Admin: 10/17/19 18:42 Dose: 20 mg Documented by: Magnesium Hydroxide (Milk Of Magnesia) 30 ml PO Q4H PRN PRN Reason: Constipation Magnesium Oxide (Mag-Ox) 400 mg PO QDAY [facility] Methylphenidate HCl (Ritalin) 5 mg PO QDAY [facility] Metoprolol Tartrate (Metoprolol) 50 mg PO BID [facility] Last Admin: 10/17/19 09:47 Dose: 50 mg Documented by: Morphine Sulfate (Morphine) 2 mg IV Q4H PRN PRN Reason: Pain, Moderate (4-6) Last Admin: 10/15/19 23:59 Dose: 2 mg Documented by: Ondansetron HCl (Zofran) 4 mg IV Q8H PRN PRN Reason: Nausea And Vomiting Polyethylene Glycol (Miralax 3350) 17 gm PO QDAY [facility] Last Admin: 10/17/19 09:47 Dose: 17 gm Documented by: Potassium Chloride (Potassium Chloride) 40 meq FEEDTUBE BID [facility] Sodium Chloride (Sodium Chloride Flush Syringe 10 Ml) 10 ml IV BID [facility] Last Admin: 10/17/19 09:48 Dose: 10 ml Documented by: Sodium Chloride (Sodium Chloride Flush Syringe 10 Ml) 10 ml IV PRN PRN PRN Reason: LINE FLUSH Last Admin: 10/14/19 23:45 Dose: 10 ml Documented by: Thiamine HCl (Vitamin B-1) 100 mg PO QDAY [facility] Last Admin: 10/17/19 09:47 Dose: 100 mg Documented by: Review of Systems ROS unobtainable: due to mental status Physical Examination Vital signs: Vital Signs Temp Pulse Resp BP Pulse Ox 97.8 F 90 22 97/58 96 10/14/19 18:35 10/14/19 18:35 10/14/19 18:35 10/14/19 18:35 10/14/19 18:35 General appearance: no acute distress, alert, other (chronically ill appearing) ENT: oropharynx moist Neck: supple Effort: normal Ascultation: Bilateral: rhonchi Cardiovascular: regular rate and rhythm (no mrg) Gastrointestinal: normoactive bowel sounds, soft, non-tender, non-distended Integumentary: normal Extremities: no cyanosis, no edema Musculoskeletal: no deformities other (R hemiparesis; aphasic) mood appropriate, affect normal Results - Laboratory Findings CBC and BMP: 10/17/19 15:03 10/16/19 06:04 ABG POC ABG pH 7.444 (7.35-7.45) 10/17/19 12:10 POC ABG pCO2 37.0 (35-45) 10/17/19 12:10 POC ABG pO2 68 (80-105) L 10/17/19 12:10 POC ABG HCO3 25.4 (22-26 mml/L) 10/17/19 12:10 POC ABG Total CO2 26 (23-27mmol/L) 10/17/19 12:10 POC ABG O2 Sat 94 10/17/19 12:10 PT/INR, D-dimer PT 13.8 Sec. (12.2-14.9) 10/15/19 05:31 INR 1.05 (0.87-1.13) 10/15/19 05:31 Abnormal lab findings: Abnormal Labs 10/14/19 10/14/19 10/14/19 18:45 18:45 19:35 WBC 36.7 H RBC 3.34 L Hgb 10.0 L Hct 30.0 L Plt Count 647 H Moore % (Auto) Seg Neutrophils % Seg Neuts % (Manual) 89.0 H Lymphocytes % (Manual) 5.0 L Seg Neutrophils # Man 32.7 H Monocytes # (Manual) 2.2 H POC ABG pO2 Sodium 135 L Chloride 96.5 L Carbon Dioxide 21 L BUN 49 H Creatinine Glucose 145 H POC Glucose AST 62 H ALT 101 H Alkaline Phosphatase 269 H Albumin 2.4 L Urine WBC (Auto) 157.0 H Acetaminophen 10/15/19 10/15/19 10/15/19 05:31 05:31 13:07 WBC 25.3 H RBC 2.90 L Hgb 8.8 L Hct 25.8 L Plt Count 639 H Moore % (Auto) Seg Neutrophils % Seg Neuts % (Manual) 93.0 H Lymphocytes % (Manual) 5.0 L Seg Neutrophils # Man 23.5 H Monocytes # (Manual) POC ABG pO2 Sodium Chloride 107.7 H Carbon Dioxide BUN 36 H Creatinine 0.6 L D Glucose 140 H POC Glucose AST 50 H ALT 83 H Alkaline Phosphatase 244 H Albumin 2.2 L Urine WBC (Auto) Acetaminophen < 5.0 L 10/16/19 10/16/19 10/16/19 06:04 06:04 06:04 WBC 15.7 H RBC 2.94 L Hgb 9.0 L Hct 26.6 L Plt Count 739 H Moore % (Auto) Seg Neutrophils % Seg Neuts % (Manual) Lymphocytes % (Manual) Seg Neutrophils # Man Monocytes # (Manual) POC ABG pO2 Sodium Chloride 108.9 H Carbon Dioxide 20 L BUN Creatinine 0.4 L Glucose 122 H POC Glucose AST ALT Alkaline Phosphatase 226 H Albumin 2.3 L Urine WBC (Auto) Acetaminophen 10/16/19 10/17/19 10/17/19 12:23 12:10 15:03 WBC RBC 2.91 L Hgb 8.9 L Hct 26.1 L Plt Count 774 H Moore % (Auto) 7.8 H Seg Neutrophils % 75.4 H Seg Neuts % (Manual) Lymphocytes % (Manual) Seg Neutrophils # Man Monocytes # (Manual) POC ABG pO2 68 L Sodium Chloride Carbon Dioxide BUN Creatinine Glucose POC Glucose 133 H AST ALT Alkaline Phosphatase Albumin Urine WBC (Auto) Acetaminophen - Diagnostic Findings Chest x-ray: report reviewed, image reviewed CT scan - chest: report reviewed, image reviewed Assessment and Plan Imp: 1. Centrilobular and paraseptal emphysema 2. LLL atelectasis, probably due to bed-bound/weak state and poor cough/airway clearance s/p CVA 3. Acute respiratory failure, hypoxia 4. UTI/bacteremia/sepsis Rec: 1. Cont. ABX 2. Duonebs/Pulmicort/Brovana 3. Add Chest PT + scheduled Mucinex; follow clinically and imaging; bronchoscopy with airway inspection could be considered if no improvement 4. DVT PPx 5. Further plans pending clinical course No family present; d/w RN Thanks for the consult.
[2019-10-17] MEDS: ARFORMOTEROL 15 MCG/2 ML NEBU IH SCH (21:35)
[2019-10-17] MEDS: BUDESONIDE 0.5 MG/2 ML NEBU IH SCH (21:35)
[2019-10-17] MEDS: guaiFENesin 100 MG/5 ML ORAL LIQD PO SCH (22:01)
[2019-10-17] MEDS: POTASSIUM CHLORIDE 20 MEQ PACKET FEEDTUBE SCH (22:02)
[2019-10-18] MEDS: guaiFENesin 100 MG/5 ML ORAL LIQD PO SCH ×6 (01:41→21:17)
[2019-10-18] MEDS: IPRATROPIUM/ALBUTEROL SULFATE 3 ML AMPUL.NEB IH SCH ×4 (02:15→22:04)
[2019-10-18] MEDS: SODIUM CHLORIDE 0.9% 1000 ML 1,000 ML IV SCH (04:52)
[2019-10-18] MEDS: HEPARIN 5,000 UNIT/1 ML VIAL SUB-Q SCH ×4 (04:53→22:25)
[2019-10-18] MEDS: BUDESONIDE 0.5 MG/2 ML NEBU IH SCH ×2 (08:13→22:04)
[2019-10-18] MEDS: ARFORMOTEROL 15 MCG/2 ML NEBU IH SCH ×2 (08:13→22:04)
--- NOTE | 2019-10-18 08:21 | Progress Note ---
Assessment and Plan Assessment and plan: 64-year-old male with CVA, right-sided deficits, aphasia, hypertension, status post feeding tube, residential resident was sent over yesterday due to concerns of abnormal labs, admitted with: Labs were said to have been drawn today patient is said to have had elevated white counts and also abnormally elevated liver enzymes. His liver enzymes on labs done at the residential shows ALT in the 700s and AST in the 200s. Labs drawn here in this facility showed ALT in the low 100s and AST in the 60s. History could not be gotten from patient but not his head to verbal communications. There has been no history of diarrhea, abdominal pain, fever or chills. Per GI * Elevated LFT likely due to sepsis * Replacement tube 16 Fr was placed successfully using usual antiseptic fashion and confirmed with gurgling noise over stomach with insertion of air. internal balloon was inflated with 5 cc of saline. No immediate complication. * - ok to restart feeding. per ID * Cefepim IV U/S abd- sludge but no acute choleycystis ct chest concerning for complete left lobar atalectasis Culture- Ecoli * Mild leukocytosis has improved and antibiotic coverage seems appropriate patient continued to have shortness of breath imaging studies was concerning for complete atelectasis of the left lower lobe. Pulmonary was consulted and per their recommendation chest physiotherapy and pulmonary toilet was added and that there may be a possible consideration for bronchoscopy if patient does not improve. Sepsis secondary to Ecoli Centrilobular and paraseptal emphysema LLL atelectasis, probably due to bed-bound/weak state and poor cough/airway clearance s/p CVA Acute respiratory failure, hypoxia Acute Cystitis AARON secondary to vasomotor nephropathy Transaminitis Gallbladder sludge CVA with residual right sided hemiparesis Disloged PEG tube Partially thrombosed hypogastric artery [place] resident Plan Supportive care Pulmonary consult noted Duonebs/Pulmicort/Brovana May need BIPAP Vascular input noted- no intervention at this time Await culture result GI and ID input noted Continue antibiotics and monitor cultures- ABX TAPERED ACCORDING TO SENSITIVITY Wound care consult Per family patient has had recurrent infections since at the residential, have discussed quality versus quantity of life advance care planning discussed with 30 minutes Monitor LFT Anticipate discharge in am if stable DVT/GI PROPHY History Interval history: Patient seen and examined, no new complaints work of breathing improving some, no clear sign of fatique Hospitalist Physical - Physical exam Narrative exam: VITAL SIGNS: Reviewed. GENERAL: The patient appears normally developed, chronically ill appearing, ON Ventimast contracted mild distress but better than yesterday, vital signs as documented. HEAD: No signs of head trauma. EYES: Pupils are equal. Extraocular motions intact. EARS: Hearing grossly intact. MOUTH: Oropharynx is normal. NECK: No adenopathy, no JVD. Increased wob CHEST: Chest with diminished breath sounds bilaterally. No wheezes, rales, or rhonchi. CARDIAC: Regular rate and rhythm. S1 and S2, without murmurs, gallops, or rubs. VASCULAR: No Edema. Peripheral pulses normal and equal in all extremities. ABDOMEN: Soft,peg in place Non tender and non distended. No rebound or guarding, and no masses palpated. Bowel Sounds normal. MUSCULOSKELETAL: Good range of motion of all major joints. Extremities without clubbing, cyanosis or edema. NEUROLOGIC EXAM: awake, non verbal,. right sided weakness. PSYCHIATRIC: Mood emotional. SKIN: detail exam as documented in skin assessment - Constitutional Vitals: Temp Pulse Resp BP Pulse Ox 98.5 F 102 H 20 141/77 87 10/17/19 23:23 10/18/19 02:15 10/18/19 02:15 10/17/19 23:23 10/17/19 23:23 General appearance: Present: cachectic, other (not responsive to verbal commands) Results - Labs CBC & Chem 7: 10/18/19 09:32 10/18/19 09:32 Labs: Laboratory Last Values WBC 9.9 K/mm3 (4.5-11.0) 10/17/19 15:03 RBC 2.91 M/mm3 (3.65-5.03) L 10/17/19 15:03 Hgb 8.9 gm/dl (11.8-15.2) L 10/17/19 15:03 Hct 26.1 % (35.5-45.6) L 10/17/19 15:03 MCV 90 fl (84-94) 10/17/19 15:03 MCH 31 pg (28-32) 10/17/19 15:03 MCHC 34 % (32-34) 10/17/19 15:03 RDW 13.7 % (13.2-15.2) 10/17/19 15:03 Plt Count 774 K/mm3 (140-440) H 10/17/19 15:03 Lymph % (Auto) 14.8 % (13.4-35.0) 10/17/19 15:03 [place] % (Auto) 7.8 % (0.0-7.3) H 10/17/19 15:03 Eos % (Auto) 1.6 % (0.0-4.3) 10/17/19 15:03 Baso % (Auto) 0.4 % (0.0-1.8) 10/17/19 15:03 Lymph # 1.5 K/mm3 (1.2-5.4) 10/17/19 15:03 [place] # 0.8 K/mm3 (0.0-0.8) 10/17/19 15:03 Eos # 0.2 K/mm3 (0.0-0.4) 10/17/19 15:03 Baso # 0.0 K/mm3 (0.0-0.1) 10/17/19 15:03 Add Manual Diff Complete 10/15/19 05:31 Total Counted 100 10/15/19 05:31 Seg Neutrophils % 75.4 % (40.0-70.0) H 10/17/19 15:03 Seg Neuts % (Manual) 93.0 % (40.0-70.0) H 10/15/19 05:31 Band Neutrophils % 0 % 10/15/19 05:31 Lymphocytes % (Manual) 5.0 % (13.4-35.0) L 10/15/19 05:31 Reactive Lymphs % (Man) 0 % 10/15/19 05:31 Monocytes % (Manual) 1.0 % (0.0-7.3) 10/15/19 05:31 Eosinophils % (Manual) 0 % (0.0-4.3) 10/15/19 05:31 Basophils % (Manual) 0 % (0.0-1.8) 10/15/19 05:31 Metamyelocytes % 1.0 % 10/15/19 05:31 Myelocytes % 0 % 10/15/19 05:31 Promyelocytes % 0 % 10/15/19 05:31 Blast Cells % 0 % 10/15/19 05:31 Nucleated RBC % Not Reportable 10/15/19 05:31 Seg Neutrophils # 7.5 K/mm3 (1.8-7.7) 10/17/19 15:03 Seg Neutrophils # Man 23.5 K/mm3 (1.8-7.7) H 10/15/19 05:31 Band Neutrophils # 0.0 K/mm3 10/15/19 05:31 Lymphocytes # (Manual) 1.3 K/mm3 (1.2-5.4) 10/15/19 05:31 Abs React Lymphs (Man) 0.0 K/mm3 10/15/19 05:31 Monocytes # (Manual) 0.3 K/mm3 (0.0-0.8) 10/15/19 05:31 Eosinophils # (Manual) 0.0 K/mm3 (0.0-0.4) 10/15/19 05:31 Basophils # (Manual) 0.0 K/mm3 (0.0-0.1) 10/15/19 05:31 Metamyelocytes # 0.3 K/mm3 10/15/19 05:31 Myelocytes # 0.0 K/mm3 10/15/19 05:31 Promyelocytes # 0.0 K/mm3 10/15/19 05:31 Blast Cells # 0.0 K/mm3 10/15/19 05:31 Pathologist Review 10/14/19 18:45 WBC Morphology Not Reportable 10/15/19 05:31 Hypersegmented Neuts Not Reportable 10/15/19 05:31 Hyposegmented Neuts Not Reportable 10/15/19 05:31 Hypogranular Neuts Not Reportable 10/15/19 05:31 Smudge Cells Not Reportable 10/15/19 05:31 Toxic Granulation Not Reportable 10/15/19 05:31 Toxic Vacuolation Not Reportable 10/15/19 05:31 Dohle Bodies Not Reportable 10/15/19 05:31 Pelger-Huet Anomaly Not Reportable 10/15/19 05:31 Vidal Rods Not Reportable 10/15/19 05:31 Platelet Estimate Consistent w auto 10/15/19 05:31 Clumped Platelets Not Reportable 10/15/19 05:31 Plt Clumps, EDTA Not Reportable 10/15/19 05:31 Large Platelets 1+ 10/15/19 05:31 Giant Platelets Not Reportable 10/15/19 05:31 Platelet Satelliting Not Reportable 10/15/19 05:31 Plt Morphology Comment Not Reportable 10/15/19 05:31 RBC Morphology Not Reportable 10/15/19 05:31 Dimorphic RBCs Not Reportable 10/15/19 05:31 Polychromasia Not Reportable 10/15/19 05:31 Hypochromasia Not Reportable 10/15/19 05:31 Poikilocytosis Not Reportable 10/15/19 05:31 Anisocytosis 1+ 10/15/19 05:31 Microcytosis Not Reportable 10/15/19 05:31 Macrocytosis Not Reportable 10/15/19 05:31 Spherocytes Not Reportable 10/15/19 05:31 Pappenheimer Bodies Not Reportable 10/15/19 05:31 Sickle Cells Not Reportable 10/15/19 05:31 Target Cells Not Reportable 10/15/19 05:31 Tear Drop Cells Not Reportable 10/15/19 05:31 Ovalocytes Few 10/15/19 05:31 Helmet Cells Not Reportable 10/15/19 05:31 [place] Bodies Not Reportable 10/15/19 05:31 Marydel Rings Not Reportable 10/15/19 05:31 Nicki Cells Not Reportable 10/15/19 05:31 Bite Cells Not Reportable 10/15/19 05:31 Crenated Cell Not Reportable 10/15/19 05:31 Elliptocytes Not Reportable 10/15/19 05:31 Acanthocytes (Spur) Not Reportable 10/15/19 05:31 Rouleaux Not Reportable 10/15/19 05:31 Hemoglobin C Crystals Not Reportable 10/15/19 05:31 Schistocytes Not Reportable 10/15/19 05:31 Malaria parasites Not Reportable 10/15/19 05:31 Joe Bodies Not Reportable 10/15/19 05:31 Hem Pathologist Commnt No 10/15/19 05:31 PT 13.8 Sec. (12.2-14.9) 10/15/19 05:31 INR 1.05 (0.87-1.13) 10/15/19 05:31 APTT 28.5 Sec. (24.2-36.6) 10/15/19 05:31 POC ABG pH 7.444 (7.35-7.45) 10/17/19 12:10 POC ABG pCO2 37.0 (35-45) 10/17/19 12:10 POC ABG pO2 68 (80-105) L 10/17/19 12:10 POC ABG HCO3 25.4 (22-26 mml/L) 10/17/19 12:10 POC ABG Total CO2 26 (23-27mmol/L) 10/17/19 12:10 POC ABG O2 Sat 94 10/17/19 12:10 POC ABG Base Excess 1 ((-2) - (+3)mmol/L) 10/17/19 12:10 FiO2 21 % 10/17/19 12:10 Sodium 145 mmol/L (137-145) 10/16/19 06:04 Potassium 4.4 mmol/L (3.6-5.0) 10/16/19 06:04 Chloride 108.9 mmol/L (98-107) H 10/16/19 06:04 Carbon Dioxide 20 mmol/L (22-30) L 10/16/19 06:04 Anion Gap 21 mmol/L 10/16/19 06:04 BUN 13 mg/dL (9-20) 10/16/19 06:04 Creatinine 0.4 mg/dL (0.8-1.5) L 10/16/19 06:04 Estimated GFR > 60 ml/min 10/16/19 06:04 BUN/Creatinine Ratio 33 % 10/16/19 06:04 Glucose 122 mg/dL (75-100) H 10/16/19 06:04 POC Glucose 133 (70-105) H 10/16/19 12:23 Lactic Acid 1.70 mmol/L (0.7-2.0) 10/14/19 19:00 Calcium 9.0 mg/dL (8.4-10.2) 10/16/19 06:04 Total Bilirubin 0.30 mg/dL (0.1-1.2) 10/16/19 06:04 Direct Bilirubin < 0.2 mg/dL (0-0.2) 10/16/19 06:04 Indirect Bilirubin 0.1 mg/dL 10/16/19 06:04 AST 22 units/L (5-40) 10/16/19 06:04 ALT 52 units/L (7-56) 10/16/19 06:04 Alkaline Phosphatase 226 units/L (35-129) H 10/16/19 06:04 Total Protein 6.7 g/dL (6.3-8.2) 10/16/19 06:04 Albumin 2.3 g/dL (3.9-5) L 10/16/19 06:04 Albumin/Globulin Ratio 0.5 % 10/16/19 06:04 Urine Color Sadie (Yellow) 10/14/19 19:35 Urine Turbidity Cloudy (Clear) 10/14/19 19:35 Urine pH 5.0 (5.0-7.0) 10/14/19 19:35 Ur Specific [place] 1.026 (1.003-1.030) 10/14/19 19:35 Urine Protein 30 mg/dl mg/dL (Negative) 10/14/19 19:35 Urine Glucose (UA) Neg mg/dL (Negative) 10/14/19 19:35 Urine Ketones Neg mg/dL (Negative) 10/14/19 19:35 Urine Blood Neg (Negative) 10/14/19 19:35 Urine Nitrite Neg (Negative) 10/14/19 19:35 Urine Bilirubin Neg (Negative) 10/14/19 19:35 Urine Urobilinogen 4.0 mg/dL (<2.0) 10/14/19 19:35 Ur Leukocyte Esterase Mod (Negative) 10/14/19 19:35 Urine WBC (Auto) 157.0 /HPF (0.0-6.0) H 10/14/19 19:35 Urine RBC (Auto) 16.0 /HPF (0.0-6.0) 10/14/19 19:35 U Epithel Cells (Auto) 2.0 /HPF (0-13.0) 10/14/19 19:35 Urine Bacteria (Auto) 4+ /HPF (Negative) 10/14/19 19:35 Urine Mucus 2+ /HPF 10/14/19 19:35 Acetaminophen < 5.0 ug/mL (10.0-30.0) L 10/15/19 13:07 Hepatitis A IgM Ab Non-reactive (NonReactive) 10/15/19 13:07 Hep Bs Antigen Non-reactive (Negative) 10/15/19 13:07 Hep B Core IgM Ab Non-reactive (NonReactive) 10/15/19 13:07 Hepatitis C Antibody Non-reactive (NonReactive) 10/15/19 13:07 Active Medications - Current Medications Current Medications: Generic Name Dose Route Start Last Admin Trade Name Freq PRN Reason Stop Dose Admin Acetaminophen 650 mg 10/14/19 22:04 10/15/19 12:26 Tylenol PO 650 mg Q4H PRN Administration Pain MILD(1-3)/Fever >100.5/MARK Albuterol 2.5 mg 10/17/19 10:25 Proventil IH Q4HRT PRN Shortness Of Breath Albuterol/Ipratropium 1 ampul 10/17/19 14:00 10/18/19 08:13 Duoneb *Not For Prn Use* IH 1 ampul Q6HRT FCO Administration Amlodipine Besylate 10 mg 10/17/19 12:00 10/17/19 18:42 Amlodipine FEEDTUBE 10 mg DAILY FCO Administration Arformoterol Tartrate 15 mcg 10/17/19 21:00 10/18/19 08:13 Brovana Nebu IH 15 mcg Q12HRT FCO Administration Aspirin 81 mg 10/16/19 13:00 10/17/19 09:47 Halfprin Ec PO 81 mg DAILY FCO Administration Atorvastatin Calcium 40 mg 10/16/19 22:00 10/17/19 22:02 Lipitor FEEDTUBE 40 mg QHS FCO Administration Budesonide 0.5 mg 10/17/19 21:00 10/18/19 08:13 Pulmicort IH 0.5 mg Q12HRT FCO Administration Fluoxetine HCl 20 mg 10/18/19 10:00 Prozac FEEDTUBE QDAY FCO Guaifenesin 200 mg 10/17/19 21:00 10/18/19 04:52 Robitussin PO 200 mg Q4H FCO Administration Heparin Sodium (Porcine) 5,000 unit 10/15/19 06:00 10/18/19 05:03 Heparin SUB-Q Not Given Q8HR FCO Sodium Chloride 1,000 mls @ 125 mls/hr 10/14/19 22:15 10/18/19 04:52 Nacl 0.9% 1000 Ml IV 125 mls/hr DIRECT FCO Administration Ceftriaxone Sodium 1 gm in 50 mls @ 100 mls/hr 10/17/19 14:00 10/17/19 18:45 Rocephin/Ns 1 Gm/50 Ml IV 100 mls/hr Q24H FCO Administration Protocol Lisinopril 20 mg 10/17/19 12:00 10/17/19 18:42 Zestril PO 20 mg QDAY FOC Administration Magnesium Hydroxide 30 ml 10/14/19 22:04 Milk Of Magnesia PO Q4H PRN Constipation Magnesium Oxide 400 mg 10/18/19 10:00 Mag-Ox PO QDAY FCO Methylphenidate HCl 5 mg 10/18/19 10:00 Ritalin PO QDAY FCO Metoprolol Tartrate 50 mg 10/16/19 22:00 10/17/19 22:02 Metoprolol PO 50 mg BID FCO Administration Morphine Sulfate 2 mg 10/14/19 22:04 10/15/19 23:59 Morphine IV 2 mg Q4H PRN Administration Pain, Moderate (4-6) Ondansetron HCl 4 mg 10/14/19 22:04 Zofran IV Q8H PRN Nausea And Vomiting Polyethylene Glycol 17 gm 10/17/19 10:00 10/17/19 09:47 Miralax 3350 PO 17 gm QDAY FCO Administration Potassium Chloride 40 meq 10/17/19 22:00 10/17/19 22:02 Potassium Chloride FEEDTUBE 40 meq BID FCO Administration Sodium Chloride 10 ml 10/15/19 10:00 10/17/19 22:03 Sodium Chloride Flush Syringe 10 Ml IV 10 ml BID FCO Administration Sodium Chloride 10 ml 10/14/19 22:04 10/14/19 23:45 Sodium Chloride Flush Syringe 10 Ml IV 10 ml PRN PRN Administration LINE FLUSH Thiamine HCl 100 mg 10/17/19 10:00 10/17/19 09:47 Vitamin B-1 PO 100 mg QDAY FCO Administration Nutrition/Malnutrition Assess - Dietary Evaluation Nutrition/Malnutrition Findings: Nutrition Notes Start: 10/15/19 10:38 Freq: Status: Active Protocol: Document 10/15/19 10:38 CT (Rec: 10/15/19 10:57 CT [id number]) Co-Sign 10/15/19 10:38 LP Nutrition Notes 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 Pt was sleeping at time of visit, pt family member gave report of information. Pt family member stated that pt has had a 10 lb wt loss in 2 months and his UBW is 170-175 lbs. Noted temporal and orbital wasting. Burn Absent Trauma Absent GI Symptoms None Difficulty In Swallowing,Chewing Current % PO Negligible Minimum of two criteria Yes Interpretation of Weight Loss (severe) >5% in 1 month Body Fat Depletion Moderate depletion (severe) Muscle Mass Moderate Depletion (severe) #1 Nutrition Diagnosis Malnutrition Etiology CVA, hx of difficulty chewing and swallowing As Evidenced by Signs and Symptoms fat and muscle wasting, 16.8% wt loss in 2 months Is patient on ventilator? No Is Patient Ambulatory and/or Out of Bed No REE-([facility]-confined to bed) 1747.932 Kcal/Kg value to use for calculation 32 Approximate Energy Requirements Using 8 kcal/Kg Calculation Used for Recommendations Kcal/kg Additional Notes Protein needs: 94-117 g/kg/day (1.2-1.5 g/kg/day IBW 78kg) Fluid needs: 1 ml/kcal/day Nutrition Intervention Change Diet Order: Start TF Nutrition Support: Jevity 1.2 70 ml/hr (goal rate ) with 120 ml free water flushes q4h Kcal 2,016 Protein (gm) 93 Fluid (mL) 1,355 Goal #1 Initiate TF Goal #2 Meet >75% energy and protein needs via TF Anticipated Discharge Needs: unable to determine at this time Follow-Up By: 10/18/19 Additional Comments Follow up for TF initiation, TF running at rate.
[2019-10-18] MEDS: POLYETHYLENE GLYCOL 3350 17 GM POWDER PO SCH (09:15)
[2019-10-18] MEDS: ASPIRIN EC 81 MG TAB PO SCH (09:16)
[2019-10-18] MEDS: THIAMINE 100 MG TAB PO SCH (09:16)
[2019-10-18] MEDS: LISINOPRIL 20 MG TAB PO SCH (09:16)
[2019-10-18] MEDS: amLODIPine 10 MG TAB FEEDTUBE SCH (09:16)
[2019-10-18] MEDS: POTASSIUM CHLORIDE 20 MEQ PACKET FEEDTUBE SCH ×2 (09:16→22:22)
[2019-10-18] MEDS: MAGNESIUM OXIDE 400 MG TAB PO SCH (09:16)
[2019-10-18] MEDS: FLUoxetine 20 MG CAP FEEDTUBE SCH (09:17)
[2019-10-18] MEDS: METHYLPHENIDATE 5 MG TAB PO SCH (09:17)
[2019-10-18 10:24] LABS: Hematocrit 27.8 % (35.5-45.6); Hemoglobin 9.3 gm/dl (11.8-15.2); Mean Corpuscular HGB Conc 33 % (32-34); Mean Corpuscular Volume 89 fl (84-94); Platelet Count 786 K/mm3 (140-440); Red Blood Count 3.13 M/mm3 (3.65-5.03); Red Cell Distribution Width 13.7 % (13.2-15.2)
[2019-10-18 10:54] LABS: BUN/Creatinine Ratio 30; Blood Urea Nitrogen 6 mg/dL (9-20); Calcium 8.7 mg/dL (8.4-10.2); Hemolysis Index 20
--- NOTE | 2019-10-18 12:13 | Progress Note ---
Assessment and Plan 64 y/o male with acute respiratory failure, abnormal CXR with lobar collapse and COPD seen on CT chest. 1. Continue CPT 2. Stopped IVF's and gave lasix 40mg IVx1 3. Continue scheduled neb therapy 4. Repeat CXR tomorrow. Subjective Date of service: 10/18/19 Interval history: Stopped IVF's today. Still on Venti mask. Objective Vital Signs - 12hr 10/18/19 10/18/19 10/18/19 02:15 08:13 08:37 Temperature Pulse Rate Pulse Rate [ 104 H Anterior Bilateral Throughout] Pulse Rate [ 102 H Bilateral] Respiratory 18 Rate Respiratory 28 H Rate [Anterior Bilateral Throughout] Respiratory 20 Rate [Bilateral ] Blood Pressure 146/83 O2 Sat by Pulse 98 Oximetry 10/18/19 10/18/19 10/18/19 08:38 08:39 09:16 Temperature 98.2 F Pulse Rate 106 H 106 H Pulse Rate [ Anterior Bilateral Throughout] Pulse Rate [ Bilateral] Respiratory Rate Respiratory Rate [Anterior Bilateral Throughout] Respiratory Rate [Bilateral ] Blood Pressure 146/83 O2 Sat by Pulse 99 Oximetry Constitutional: no acute distress, alert, other (chronically ill appearing) ENT: oropharynx moist Neck: supple Effort: normal Ascultation: Bilateral: rhonchi Cardiovascular: regular rate and rhythm (no mrg) Gastrointestinal: normoactive bowel sounds, soft, non-tender, non-distended Integumentary: normal Extremities: no cyanosis, no edema Neurologic: other (R hemiparesis; aphasic) Psychiatric: mood appropriate, affect normal CBC and BMP: 10/18/19 09:32 10/18/19 09:32 ABG, PT/INR, D-dimer: ABG POC ABG pH 7.444 (7.35-7.45) 10/17/19 12:10 POC ABG pCO2 37.0 (35-45) 10/17/19 12:10 POC ABG pO2 68 (80-105) L 10/17/19 12:10 POC ABG HCO3 25.4 (22-26 mml/L) 10/17/19 12:10 POC ABG Total CO2 26 (23-27mmol/L) 10/17/19 12:10 POC ABG O2 Sat 94 10/17/19 12:10 PT/INR, D-dimer PT 13.8 Sec. (12.2-14.9) 10/15/19 05:31 INR 1.05 (0.87-1.13) 10/15/19 05:31 Abnormal lab findings: Abnormal Labs 10/14/19 10/14/19 10/14/19 18:45 18:45 19:35 WBC 36.7 H RBC 3.34 L Hgb 10.0 L Hct 30.0 L Plt Count 647 H [place] % (Auto) Seg Neutrophils % Seg Neuts % (Manual) 89.0 H Lymphocytes % (Manual) 5.0 L Seg Neutrophils # Man 32.7 H Monocytes # (Manual) 2.2 H POC ABG pO2 Sodium 135 L Chloride 96.5 L Carbon Dioxide 21 L BUN 49 H Creatinine Glucose 145 H POC Glucose AST 62 H ALT 101 H Alkaline Phosphatase 269 H Albumin 2.4 L Urine WBC (Auto) 157.0 H Acetaminophen 10/15/19 10/15/19 10/15/19 05:31 05:31 13:07 WBC 25.3 H RBC 2.90 L Hgb 8.8 L Hct 25.8 L Plt Count 639 H [place] % (Auto) Seg Neutrophils % Seg Neuts % (Manual) 93.0 H Lymphocytes % (Manual) 5.0 L Seg Neutrophils # Man 23.5 H Monocytes # (Manual) POC ABG pO2 Sodium Chloride 107.7 H Carbon Dioxide BUN 36 H Creatinine 0.6 L D Glucose 140 H POC Glucose AST 50 H ALT 83 H Alkaline Phosphatase 244 H Albumin 2.2 L Urine WBC (Auto) Acetaminophen < 5.0 L 10/16/19 10/16/19 10/16/19 06:04 06:04 06:04 WBC 15.7 H RBC 2.94 L Hgb 9.0 L Hct 26.6 L Plt Count 739 H [place] % (Auto) Seg Neutrophils % Seg Neuts % (Manual) Lymphocytes % (Manual) Seg Neutrophils # Man Monocytes # (Manual) POC ABG pO2 Sodium Chloride 108.9 H Carbon Dioxide 20 L BUN Creatinine 0.4 L Glucose 122 H POC Glucose AST ALT Alkaline Phosphatase 226 H Albumin 2.3 L Urine WBC (Auto) Acetaminophen 10/16/19 10/17/19 10/17/19 12:23 12:10 15:03 WBC RBC 2.91 L Hgb 8.9 L Hct 26.1 L Plt Count 774 H [place] % (Auto) 7.8 H Seg Neutrophils % 75.4 H Seg Neuts % (Manual) Lymphocytes % (Manual) Seg Neutrophils # Man Monocytes # (Manual) POC ABG pO2 68 L Sodium Chloride Carbon Dioxide BUN Creatinine Glucose POC Glucose 133 H AST ALT Alkaline Phosphatase Albumin Urine WBC (Auto) Acetaminophen 10/18/19 10/18/19 09:32 09:32 WBC 12.8 H RBC 3.13 L Hgb 9.3 L Hct 27.8 L Plt Count 786 H [place] % (Auto) Seg Neutrophils % Seg Neuts % (Manual) Lymphocytes % (Manual) Seg Neutrophils # Man Monocytes # (Manual) POC ABG pO2 Sodium Chloride Carbon Dioxide 21 L BUN 6 L Creatinine 0.2 L Glucose 141 H POC Glucose AST ALT Alkaline Phosphatase Albumin Urine WBC (Auto) Acetaminophen
[2019-10-18] MEDS ORDERED: FUROSEMIDE 40 MG/4 ML INJ IV ONE (12:30)
--- NOTE | 2019-10-18 13:22 | Progress Note ---
Assessment and Plan Cultures: 10/14/2019 blood culture: E.coli 10/14/2019 urine culture: No growth thus far A/P: 64-year-old male with CVA, right-sided deficits, aphasia, hypertension, status post feeding tube, [facility] resident was sent over yesterday due to concerns of abnormal labs, admitted with: #Sepsis: Source likely UTI vs hepatobiliary/intra-abdominal. CT abdomen pelvis with IV contrast unremarkable for infectious etiology. #E.coli bacteremia: pansusceptible, so will de-escalate #Urinary tract infection on UA shows significant pyuria. culture was negative. #Elevated LFTs: Ultrasound showed sludge in gallbladder. Alk phos is also elevated but overall, LFTs are trending down. #Acute kidney injury: Creatinine improved. Recs: IV Ceftriaxone while inpatient. at the time of discharge, can do PO Levofloxacin 500 mg daily x 5 days Paige Holcomb MD [facility], [place], [facility] ([facility] M: [phone] O: [phone] F: [phone] Subjective Date of service: 10/18/19 Interval history: Remains afebrile, small bump in white count. Objective - Exam Narrative Exam: Physical Exam: Constitutional: awake, mild distress Head, Ears, Nose: Normocephalic, atraumatic. External ears, nose normal Eyes: Conjunctivae/corneas clear. No icterus. No ptosis. Neck: Supple, no meningeal signs Oral: no thrush Cardiovascular: S1, S2 normal, tachy Respiratory: Good air entry, clear to auscultation bilaterally GI: Soft, non tender; bowel sounds +, PEG +, condom cath + Musculoskeletal: No pedal edema, no cyanosis. Skin: No rash or abscess Hem/Lymphatic: No palpable cervical or supraclavicular nodes. No lymphangitis Psych: no agitation Neurological: Awake, non verbal - Constitutional Vitals: Vital Signs Temp Pulse Resp BP Pulse Ox 97.9 F 97 H 19 126/74 92 10/18/19 12:35 10/18/19 12:35 10/18/19 12:35 10/18/19 12:35 10/18/19 12:35 Temperature -Last 24 Hours Temperature 97.9 F Temperature 98.2 F Temperature 98.5 F Temperature 99.3 F - Labs CBC & Chem 7: 12/16/19 09:32 10/18/19 09:32 Labs: Abnormal lab results 10/17/19 10/18/19 10/18/19 Range/Units 15:03 09:32 09:32 WBC 12.8 H (4.5-11.0) K/mm3 RBC 2.91 L 3.13 L (3.65-5.03) M/mm3 Hgb 8.9 L 9.3 L (11.8-15.2) gm/dl Hct 26.1 L 27.8 L (35.5-45.6) % Plt Count 774 H 786 H (140-440) K/mm3 [place] % (Auto) 7.8 H (0.0-7.3) % Seg Neutrophils % 75.4 H (40.0-70.0) % Carbon Dioxide 21 L (22-30) mmol/L BUN 6 L (9-20) mg/dL Creatinine 0.2 L (0.8-1.5) mg/dL Glucose 141 H (75-100) mg/dL
[2019-10-18] MEDS: METOPROLOL TARTRATE 50 MG TAB PO SCH ×2 (13:36→22:23)
[2019-10-18] MEDS: cefTRIAXone/NS 1 GM/50 ML 1 GM/50 ML BAG IV SCH (13:39)
[2019-10-18] MEDS: MORPHINE 2 MG/1 ML INJ IV PRN (22:35)
[2019-10-18 22:47] LABS: ANA Screen, IFA Negative (Negative)
[2019-10-19] MEDS: guaiFENesin 100 MG/5 ML ORAL LIQD PO SCH ×3 (01:02→10:30)
[2019-10-19] MEDS: IPRATROPIUM/ALBUTEROL SULFATE 3 ML AMPUL.NEB IH SCH ×3 (02:15→13:29)
[2019-10-19] MEDS: ACETAMINOPHEN 325 MG TAB PO PRN (07:03)
[2019-10-19] MEDS: HEPARIN 5,000 UNIT/1 ML VIAL SUB-Q SCH (07:08)
[2019-10-19 07:38] LABS: BUN/Creatinine Ratio 35; Blood Urea Nitrogen 7 mg/dL (9-20); Calcium 9.1 mg/dL (8.4-10.2); Hemolysis Index 0
[2019-10-19] MEDS: ARFORMOTEROL 15 MCG/2 ML NEBU IH SCH (08:22)
[2019-10-19] MEDS: BUDESONIDE 0.5 MG/2 ML NEBU IH SCH (08:22)
[2019-10-19 09:15] LABS: Hematocrit 26.5 % (35.5-45.6); Hemoglobin 8.9 gm/dl (11.8-15.2); Mean Corpuscular HGB Conc 34 % (32-34); Mean Corpuscular Volume 89 fl (84-94); Platelet Count 859 K/mm3 (140-440); Red Blood Count 2.99 M/mm3 (3.65-5.03)
[2019-10-19] MEDS: METOPROLOL TARTRATE 50 MG TAB PO SCH (10:30)
[2019-10-19] MEDS: POLYETHYLENE GLYCOL 3350 17 GM POWDER PO SCH (10:30)
[2019-10-19] MEDS: POTASSIUM CHLORIDE 20 MEQ PACKET FEEDTUBE SCH (10:31)
[2019-10-19] MEDS: FLUoxetine 20 MG CAP FEEDTUBE SCH (10:31)
[2019-10-19] MEDS: METHYLPHENIDATE 5 MG TAB PO SCH (10:31)
[2019-10-19] MEDS: THIAMINE 100 MG TAB PO SCH (10:31)
[2019-10-19] MEDS: MAGNESIUM OXIDE 400 MG TAB PO SCH (10:31)
[2019-10-19] MEDS: ASPIRIN EC 81 MG TAB PO SCH (10:31)
--- NOTE | 2019-10-19 10:40 | XRay Report ---
CHEST 1 VIEW 8:53 AM INDICATION / CLINICAL INFORMATION: Pneumonia. COMPARISON: 10/16/2019. FINDINGS: SUPPORT DEVICES: Cardiac loop recorder overlying the left heart. HEART / MEDIASTINUM: No significant abnormality. LUNGS / PLEURA: Patchy parenchymal opacity in the left retrocardiac region is similar to the prior st udy. The lungs are otherwise clear. No pneumothorax. ADDITIONAL FINDINGS: No significant additional findings. IMPRESSION: No significant interval change. Signer Name: Yeison Malin MD Signed: 10/19/2019 10:36 AM Workstation Name: [id number]
--- NOTE | 2019-10-19 11:23 | Progress Note ---
Assessment and Plan Cultures: 10/14/2019 blood culture: E.coli 10/14/2019 urine culture: No growth thus far A/P: 64-year-old male with CVA, right-sided deficits, aphasia, hypertension, status post feeding tube, custodial resident was sent over yesterday due to concerns of abnormal labs, admitted with: #Sepsis: Source likely UTI vs hepatobiliary/intra-abdominal. CT abdomen pelvis with IV contrast unremarkable for infectious etiology. #E.coli bacteremia: pansusceptible, so will de-escalate #Urinary tract infection on UA shows significant pyuria. culture was negative. #Elevated LFTs: Ultrasound showed sludge in gallbladder. Alk phos is also elevated but overall, LFTs are trending down. #Acute kidney injury: Creatinine improved. Recs: IV Ceftriaxone while inpatient. at the time of discharge, can do PO Levofloxacin 750mg daily until 10/28/19 Thank you for the consult, will follow. Paige Holcomb MD [facility] M: [phone] O: [phone] F: [phone] Subjective Date of service: 10/19/19 Interval history: Remains afebrile,white count back to normal Objective - Exam Narrative Exam: Physical Exam: Constitutional: awake, mild distress Head, Ears, Nose: Normocephalic, atraumatic. External ears, nose normal Eyes: Conjunctivae/corneas clear. No icterus. No ptosis. Neck: Supple, no meningeal signs Oral: no thrush Cardiovascular: S1, S2 normal, tachy Respiratory: Good air entry, clear to auscultation bilaterally GI: Soft, non tender; bowel sounds +, PEG +, condom cath + Musculoskeletal: No pedal edema, no cyanosis. Skin: No rash or abscess Hem/Lymphatic: No palpable cervical or supraclavicular nodes. No lymphangitis Psych: no agitation Neurological: Awake, non verbal - Constitutional Vitals: Vital Signs Temp Pulse Resp BP Pulse Ox 98.0 F 93 H 20 124/75 95 10/19/19 05:19 10/19/19 10:30 10/19/19 08:22 10/19/19 10:30 10/19/19 09:10 Temperature -Last 24 Hours Temperature 98.0 F Temperature 99.0 F Temperature 98.3 F Temperature 97.9 F - Labs CBC & Chem 7: 10/19/19 05:35 10/19/19 05:35 Labs: Abnormal lab results 10/19/19 10/19/19 Range/Units 05:35 05:35 RBC 2.99 L (3.65-5.03) M/mm3 Hgb 8.9 L (11.8-15.2) gm/dl Hct 26.5 L (35.5-45.6) % Plt Count 859 H (140-440) K/mm3 BUN 7 L (9-20) mg/dL Creatinine 0.2 L (0.8-1.5) mg/dL Glucose 147 H (75-100) mg/dL
--- NOTE | 2019-10-19 12:22 | Discharge Summary ---
Providers - Providers Date of Admission: 10/14/19 21:24 Attending physician: DANIEL MATUTE MD 10/14/19 22:04 Consult to Physician [CONS] Routine Comment: Consulting Provider: NIMESH HERNANDEZ Physician Instructions: Reason For Exam: ELEVATED LIVER ENZYMES/ GTUBE OUT 10/14/19 22:06 Consult to Dietitian/Nutrition [CONS] Routine Physician Instructions: Reason For Exam: Reason for Consult: Write/Manage Tube Feeding 10/15/19 12:38 Consult to Physician [CONS] Routine Comment: Consulting Provider: BETINA KEMP Physician Instructions: Reason For Exam: GNR bactermia 10/16/19 12:04 Consult to Physician [CONS] Routine Comment: Consulting Provider: AZEB CLARKE Physician Instructions: Reason For Exam: incidental finding of thrombosed hypogastric arter 10/17/19 13:42 Consult to Physician [CONS] Routine Comment: Consulting Provider: VALARIE PATEL Physician Instructions: Reason For Exam: shortness of breath Primary care physician: MARTÍN ANDERSON Hospitalization Reason for admission: Shortness of breath Condition: Stable Hospital course: 64-year-old male with CVA, right-sided deficits, aphasia, hypertension, status post feeding tube, [facility] resident was sent over yesterday due to concerns of abnormal labs, admitted with: Labs were said to have been drawn today patient is said to have had elevated white counts and also abnormally elevated liver enzymes. His liver enzymes on labs done at the [facility] shows ALT in the 700s and AST in the 200s. Labs drawn here in this facility showed ALT in the low 100s and AST in the 60s. History could not be gotten from patient but not his head to verbal communications. There has been no history of diarrhea, abdominal pain, fever or chills. Per GI * Elevated LFT likely due to sepsis * Replacement tube 16 Fr was placed successfully using usual antiseptic fashion and confirmed with gurgling noise over stomach with insertion of air. internal balloon was inflated with 5 cc of saline. No immediate complication. * - ok to restart feeding. per ID * Cefepim IV U/S abd- sludge but no acute choleycystis Ct chest concerning for complete left lobar atalectasis Culture- Ecoli * Mild leukocytosis has improved and antibiotic coverage seems appropriate patient continued to have shortness of breath imaging studies was concerning for complete atelectasis of the left lower lobe. Pulmonary was consulted and per their recommendation chest physiotherapy and pulmonary toilet was added and that there may be a possible consideration for bronchoscopy if patient does not improve. * Patient improved and was discharged extensive discussion was had with the patient to follow-up with vascular, GI, ID, and also the pulmonary doctor. We did have extensive discussion with the family about patient's quality of life they verbalized understanding. Sepsis secondary to Ecoli Centrilobular and paraseptal emphysema LLL atelectasis, probably due to bed-bound/weak state and poor cough/airway clearance s/p CVA Acute respiratory failure, hypoxia Acute Cystitis AARON secondary to vasomotor nephropathy Transaminitis Gallbladder sludge CVA with residual right sided hemiparesis Disloged PEG tube Partially thrombosed hypogastric artery [facility] resident Disposition: DC/TX-03 [facility] Time spent for discharge: 35 mins Core Measure Documentation - Palliative Care Palliative Care/ Comfort Measures: Not Applicable - Core Measures Any of the following diagnoses?: none Exam - Physical Exam Narrative exam: VITAL SIGNS: Reviewed. GENERAL: The patient appears normally developed, chronically ill appearing, ON Ventimast contracted mild distress but better than yesterday, vital signs as documented. HEAD: No signs of head trauma. EYES: Pupils are equal. Extraocular motions intact. EARS: Hearing grossly intact. MOUTH: Oropharynx is normal. NECK: No adenopathy, no JVD. Increased wob CHEST: Chest with diminished breath sounds bilaterally. No wheezes, rales, or rhonchi. CARDIAC: Regular rate and rhythm. S1 and S2, without murmurs, gallops, or rubs. VASCULAR: No Edema. Peripheral pulses normal and equal in all extremities. ABDOMEN: Soft,peg in place Non tender and non distended. No rebound or guarding, and no masses palpated. Bowel Sounds normal. MUSCULOSKELETAL: Good range of motion of all major joints. Extremities without clubbing, cyanosis or edema. NEUROLOGIC EXAM: awake, non verbal,. right sided weakness. PSYCHIATRIC: Mood emotional. SKIN: detail exam as documented in skin assessment - Constitutional Vitals: Temp Pulse Resp BP Pulse Ox 98.0 F 93 H 20 124/75 95 10/19/19 05:19 10/19/19 10:30 10/19/19 08:22 10/19/19 10:30 10/19/19 09:10 Plan Activity: advance as tolerated, fall precautions Diet: low fat, low salt Special Instructions: record daily BP diary Follow up with: MARTÍN ANDERSON MD [Primary Care Provider] - 3-5 Days CUONG TREVIZO MD [Staff Physician] - 7 Days SADE BULLOCK MD [Staff Physician] - 7 Days Prescriptions: Ipratropium/Albuterol Sulfate [DUONEB *Not for PRN Use*] 1 ampul IH Q6HRT #30 ampul.neb levoFLOXacin [Levaquin] 750 mg PO QDAY #10 tablet
[2019-10-19 13:03] VITALS: BP 112/76
[2019-10-19] MEDS: LISINOPRIL 20 MG TAB PO SCH (15:03)
[2019-10-19] MEDS: amLODIPine 10 MG TAB FEEDTUBE SCH (15:04)
[2019-10-19] MEDS: cefTRIAXone/NS 1 GM/50 ML 1 GM/50 ML BAG IV SCH (15:12)
--- NOTE | 2019-10-19 18:44 | Progress Note ---
Assessment and Plan 64 y/o male with acute respiratory failure, abnormal CXR with lobar collapse and COPD seen on CT chest. 1. CXR is stable per Rads, I feel better. If discharged today, will repeat CXR in the office. If still concerned will repeat CT of chest. 2. Can follow up in the office in 10-14 days. Subjective Date of service: 10/19/19 Interval history: No acute events. Being discharged PER IMS. Objective Vital Signs - 12hr 10/19/19 10/19/19 10/19/19 08:22 09:10 10:27 Temperature Pulse Rate Pulse Rate [ 98 H Anterior Bilateral Throughout] Respiratory Rate Respiratory 20 Rate [Anterior Bilateral Throughout] Blood Pressure 124/75 O2 Sat by Pulse 95 Oximetry 10/19/19 10/19/19 10/19/19 10:30 11:58 13:30 Temperature 97.9 F Pulse Rate 93 H 79 Pulse Rate [ 89 Anterior Bilateral Throughout] Respiratory 16 Rate Respiratory 20 Rate [Anterior Bilateral Throughout] Blood Pressure 124/75 112/76 O2 Sat by Pulse 100 Oximetry 10/19/19 13:35 Temperature Pulse Rate Pulse Rate [ Anterior Bilateral Throughout] Respiratory Rate Respiratory Rate [Anterior Bilateral Throughout] Blood Pressure O2 Sat by Pulse 98 Oximetry Constitutional: no acute distress, alert, other (chronically ill appearing) ENT: oropharynx moist Neck: supple Effort: normal Ascultation: Bilateral: rhonchi Cardiovascular: regular rate and rhythm (no mrg) Gastrointestinal: normoactive bowel sounds, soft, non-tender, non-distended Integumentary: normal Extremities: no cyanosis, no edema Neurologic: other (R hemiparesis; aphasic) Psychiatric: mood appropriate, affect normal CBC and BMP: 10/19/19 05:35 10/19/19 05:35 ABG, PT/INR, D-dimer: ABG POC ABG pH 7.444 (7.35-7.45) 10/17/19 12:10 POC ABG pCO2 37.0 (35-45) 10/17/19 12:10 POC ABG pO2 68 (80-105) L 10/17/19 12:10 POC ABG HCO3 25.4 (22-26 mml/L) 10/17/19 12:10 POC ABG Total CO2 26 (23-27mmol/L) 10/17/19 12:10 POC ABG O2 Sat 94 10/17/19 12:10 PT/INR, D-dimer PT 13.8 Sec. (12.2-14.9) 10/15/19 05:31 INR 1.05 (0.87-1.13) 10/15/19 05:31 Abnormal lab findings: Abnormal Labs 10/14/19 10/14/19 10/14/19 18:45 18:45 19:35 WBC 36.7 H RBC 3.34 L Hgb 10.0 L Hct 30.0 L Plt Count 647 H [place] % (Auto) Seg Neutrophils % Seg Neuts % (Manual) 89.0 H Lymphocytes % (Manual) 5.0 L Seg Neutrophils # Man 32.7 H Monocytes # (Manual) 2.2 H POC ABG pO2 Sodium 135 L Chloride 96.5 L Carbon Dioxide 21 L BUN 49 H Creatinine Glucose 145 H POC Glucose AST 62 H ALT 101 H Alkaline Phosphatase 269 H Albumin 2.4 L Urine WBC (Auto) 157.0 H Acetaminophen 10/15/19 10/15/19 10/15/19 05:31 05:31 13:07 WBC 25.3 H RBC 2.90 L Hgb 8.8 L Hct 25.8 L Plt Count 639 H [place] % (Auto) Seg Neutrophils % Seg Neuts % (Manual) 93.0 H Lymphocytes % (Manual) 5.0 L Seg Neutrophils # Man 23.5 H Monocytes # (Manual) POC ABG pO2 Sodium Chloride 107.7 H Carbon Dioxide BUN 36 H Creatinine 0.6 L D Glucose 140 H POC Glucose AST 50 H ALT 83 H Alkaline Phosphatase 244 H Albumin 2.2 L Urine WBC (Auto) Acetaminophen < 5.0 L 10/16/19 10/16/19 10/16/19 06:04 06:04 06:04 WBC 15.7 H RBC 2.94 L Hgb 9.0 L Hct 26.6 L Plt Count 739 H [place] % (Auto) Seg Neutrophils % Seg Neuts % (Manual) Lymphocytes % (Manual) Seg Neutrophils # Man Monocytes # (Manual) POC ABG pO2 Sodium Chloride 108.9 H Carbon Dioxide 20 L BUN Creatinine 0.4 L Glucose 122 H POC Glucose AST ALT Alkaline Phosphatase 226 H Albumin 2.3 L Urine WBC (Auto) Acetaminophen 10/16/19 10/17/19 10/17/19 12:23 12:10 15:03 WBC RBC 2.91 L Hgb 8.9 L Hct 26.1 L Plt Count 774 H [place] % (Auto) 7.8 H Seg Neutrophils % 75.4 H Seg Neuts % (Manual) Lymphocytes % (Manual) Seg Neutrophils # Man Monocytes # (Manual) POC ABG pO2 68 L Sodium Chloride Carbon Dioxide BUN Creatinine Glucose POC Glucose 133 H AST ALT Alkaline Phosphatase Albumin Urine WBC (Auto) Acetaminophen 10/18/19 10/18/19 10/19/19 09:32 09:32 05:35 WBC 12.8 H RBC 3.13 L 2.99 L Hgb 9.3 L 8.9 L Hct 27.8 L 26.5 L Plt Count 786 H 859 H [place] % (Auto) Seg Neutrophils % Seg Neuts % (Manual) Lymphocytes % (Manual) Seg Neutrophils # Man Monocytes # (Manual) POC ABG pO2 Sodium Chloride Carbon Dioxide 21 L BUN 6 L Creatinine 0.2 L Glucose 141 H POC Glucose AST ALT Alkaline Phosphatase Albumin Urine WBC (Auto) Acetaminophen 10/19/19 05:35 WBC RBC Hgb Hct Plt Count [place] % (Auto) Seg Neutrophils % Seg Neuts % (Manual) Lymphocytes % (Manual) Seg Neutrophils # Man Monocytes # (Manual) POC ABG pO2 Sodium Chloride Carbon Dioxide BUN 7 L Creatinine 0.2 L Glucose 147 H POC Glucose AST ALT Alkaline Phosphatase Albumin Urine WBC (Auto) Acetaminophen
== END 2019-10-19 16:00 | DRG 871 ==
LOC: ED 17:54 → 3A 21:24
PROVIDERS: ADMIT Internal Medicine Geriatric Medicine; ATTEND Internal Medicine
PROC: 0D20XUZ Change Feeding Device in Upper Intestinal Tract, External Approach (ICD-10-PCS; 2019-10-15)
PROC: 4A033R1 Measurement of Arterial Saturation, Peripheral, Percutaneous Approach (ICD-10-PCS; principal; 2019-10-17)
DX: A41.51 Sepsis due to Escherichia coli [E. coli] (principal); J96.01 Acute respiratory failure with hypoxia; N17.0 Acute kidney failure with tubular necrosis; I69.351 Hemiplegia and hemiparesis following cerebral infarction affecting right dominant side; R47.01 Aphasia; N30.00 Acute cystitis without hematuria; I74.8 Embolism and thrombosis of other arteries; Z43.1 Encounter for attention to gastrostomy; R94.5 Abnormal results of liver function studies; I10 Essential (primary) hypertension; J43.2 Centrilobular emphysema; R74.0 Nonspecific elevation of levels of transaminase and lactic acid dehydrogenase [LDH]; Z79.82 Long term (current) use of aspirin; Z79.899 Other long term (current) drug therapy
CPT/HCPCS: 36415; 36600; 71045; 71250; 74177; 76705; 80048; 80053; 80074; 80076; 80320; 81001; 82140; 82803; 82962; 85007; 85025; 85027; 85610; 85730; 86038; 87040; 87076; 87086; 87186; 94640; 94669; 94760; G0378; A9270-GY; G0480; J0692; J0696; J1644; J1940; J2270; J7030; Q9967

== ENCOUNTER 2019-12-12 14:43 | Observation (INO) | payer OTHER ==
[2019-12-12] MEDS ORDERED: ONDANSETRON 4 MG/2 ML INJ IV ONE (15:13)
[2019-12-12] MEDS ORDERED: HYDROmorphone 1 MG/1 ML INJ IV ONE (15:13)
[2019-12-12 16:00] LABS: Basophils # (Auto) 0.1 K/mm3 (0.0-0.1); Basophils % (Auto) 1.2 % (0.0-1.8); Eosinophils # (Auto) 0.1 K/mm3 (0.0-0.4); Eosinophils % (Auto) 1.2 % (0.0-4.3); Hematocrit 32.8 % (35.5-45.6); Hemoglobin 10.7 gm/dl (11.8-15.2); Lymphocytes # (Auto) 3.7 K/mm3 (1.2-5.4); Lymphocytes % (Auto) 39.4 % (13.4-35.0); Mean Corpuscular HGB Conc 33 % (32-34); Mean Corpuscular Volume 83 fl (84-94); Monocytes # (Auto) 0.5 K/mm3 (0.0-0.8); Platelet Count 395 K/mm3 (140-440); Red Blood Count 3.95 M/mm3 (3.65-5.03); Red Cell Distribution Width 16.3 % (13.2-15.2)
[2019-12-12 16:23] LABS: Alanine Aminotransferase 25 units/L (7-56); Albumin 3.2 g/dL (3.9-5); BUN/Creatinine Ratio 50; Blood Urea Nitrogen 20 mg/dL (9-20); Calcium 9.9 mg/dL (8.4-10.2); Hemolysis Index 18
--- NOTE | 2019-12-12 16:27 | Emergency Department Report ---
ED Abdominal Pain HPI - General Chief Complaint: Abdominal Pain Stated Complaint: G TUBE/ABD PAIN Source: EMS, old records reviewed Mode of arrival: Stretcher Limitations: Physical Limitation - History of Present Illness Initial Comments: 64-year-old male presents from [facility] with displaced PEG tube. Presents with a 16 [place] PEG tube with 3-5 mL balloon fully inflated at the bedside. halfway reportedly was unable to place a [place] through the stoma patient has pain at the site. Patient is unable to provide any history of present illness given a dysphasia secondary to CVA and also had chronic right-sided deficits. Severity scale (0 -10): 8 - Related Data Home Medications Medication Instructions Recorded Confirmed Last Taken Albuterol Sulfate 2.5 mg INHALATION Q2HR PRN 10/14/19 10/17/19 Unknown Aspirin [Adult Aspirin] 81 mg PO QDAY 10/14/19 10/17/19 Unknown Atorvastatin Calcium [Lipitor] 40 mg FEEDTUBE QHS 10/14/19 10/17/19 Unknown Magnesium Oxide 400 mg PO QDAY 10/14/19 10/17/19 Unknown Methylphenidate HCl 5 mg FEEDTUBE QDAY 10/14/19 10/17/19 Unknown Metoprolol [Lopressor TAB] 50 mg PO BID 10/14/19 10/14/19 Unknown Polyethylene Glycol 3350 [Miralax 17 gm PO QDAY 10/14/19 10/14/19 Unknown 3350] Potassium Chloride 40 meq FEEDTUBE BID 10/14/19 10/17/19 Unknown Thiamine [Vitamin B-1] 100 mg PO QDAY 10/14/19 10/14/19 Unknown Vitamin D3 2,000 UNIT CHEW TAB 2,000 units FEEDTUBE DAILY 10/14/19 10/17/19 Unknown FLUoxetine HCL [Prozac] 20 mg FEEDTUBE QDAY 10/17/19 10/17/19 Unknown Lisinopril 20 mg FEEDTUBE QDAY 10/17/19 10/17/19 Unknown Melatonin 5MG TAB 5 mg PO QHS PRN 10/17/19 10/17/19 Unknown Norvasc 10 mg FEEDTUBE QDAY 10/17/19 10/17/19 Unknown Previous Rx's Medication Instructions Recorded Last Taken Type Ipratropium/Albuterol Sulfate 1 ampul IH Q6HRT #30 ampul.neb 10/19/19 Unknown Rx [DUONEB *Not for PRN Use*] levoFLOXacin [Levaquin] 750 mg PO QDAY #10 tablet 10/19/19 Unknown Rx Docusate Sodium [Colace] 100 mg PO BID #30 capsule 11/01/19 Unknown Rx Sodium Phosphate,Dickey-Dibasic 133 ml RC DAILY #3 enema 11/01/19 Unknown Rx [Fleet Enema] Allergies Allergy/AdvReac Type Severity Reaction Status Date / Time No Known Allergies Allergy Unverified 08/01/19 19:30 ED Review of Systems ROS: Stated complaint: G TUBE/ABD PAIN Other details as noted in HPI Comment: All other systems reviewed and negative ED Past Medical Hx - Past Medical History Hx Hypertension: Yes Hx CVA: Yes (Rigth side deficits) Hx Heart Attack/AMI: No Hx Congestive Heart Failure: Yes Hx Diabetes: No Hx Deep Vein Thrombosis: No Hx Pulmonary Embolism: No Hx GERD: No Hx Seizures: No Hx Asthma: No Hx COPD: No Hx Tuberculosis: No Hx Dementia: No Hx HIV: No Additional medical history: Aphasia - Surgical History Hx Coronary Stent: No Hx Open Heart Surgery: No Hx Pacemaker: No Hx Internal Defibrillator: No Hx Cholecystectomy: No Hx Appendectomy: No Hx Breast Surgery: No Additional Surgical History: feeding tube - Social History Smoking Status: Unknown if ever smoked Substance Use Type: None - Medications Home Medications: Home Medications Medication Instructions Recorded Confirmed Last Taken Type Albuterol Sulfate 2.5 mg INHALATION Q2HR PRN 10/14/19 10/17/19 Unknown History Aspirin [Adult Aspirin] 81 mg PO QDAY 10/14/19 10/17/19 Unknown History Atorvastatin Calcium [Lipitor] 40 mg FEEDTUBE QHS 10/14/19 10/17/19 Unknown History Magnesium Oxide 400 mg PO QDAY 10/14/19 10/17/19 Unknown History Methylphenidate HCl 5 mg FEEDTUBE QDAY 10/14/19 10/17/19 Unknown History Metoprolol [Lopressor TAB] 50 mg PO BID 10/14/19 10/14/19 Unknown History Polyethylene Glycol 3350 [Miralax 17 gm PO QDAY 10/14/19 10/14/19 Unknown History 3350] Potassium Chloride 40 meq FEEDTUBE BID 10/14/19 10/17/19 Unknown History Thiamine [Vitamin B-1] 100 mg PO QDAY 10/14/19 10/14/19 Unknown History Vitamin D3 2,000 UNIT CHEW TAB 2,000 units FEEDTUBE DAILY 10/14/19 10/17/19 Unknown History FLUoxetine HCL [Prozac] 20 mg FEEDTUBE QDAY 10/17/19 10/17/19 Unknown History Lisinopril 20 mg FEEDTUBE QDAY 10/17/19 10/17/19 Unknown History Melatonin 5MG TAB 5 mg PO QHS PRN 10/17/19 10/17/19 Unknown History Norvasc 10 mg FEEDTUBE QDAY 10/17/19 10/17/19 Unknown History Ipratropium/Albuterol Sulfate 1 ampul IH Q6HRT #30 ampul.neb 10/19/19 Unknown Rx [DUONEB *Not for PRN Use*] levoFLOXacin [Levaquin] 750 mg PO QDAY #10 tablet 10/19/19 Unknown Rx Docusate Sodium [Colace] 100 mg PO BID #30 capsule 11/01/19 Unknown Rx Sodium Phosphate,Dickey-Dibasic 133 ml RC DAILY #3 enema 11/01/19 Unknown Rx [Fleet Enema] ED Physical Exam - General Limitations: Physical Limitation - Other Other exam information: General: No limitations, patient is alert in no acute distress Head exam: Atraumatic, normocephalic Eyes exam: Normal appearance ENT: Moist mucous membrane Neck exam: Normal inspection, full range of motion Respiratory exam: Clear to auscultation bilateral, no wheezes, rales, crackles Cardiovascular: Normal rate and rhythm Abdomen: Soft, nondistended, left upper quadrant stoma without surrounding erythema. Mild yellowish bloody drainage. Attempted to pass a Q-tip to the stoma however, it was met with resistance and left upper quadrant pain. Extremity: No deformity Back: Normal Inspection, no CVA tenderness Neurologic: Alert, nonverbal, right-sided upper and lower extremity paralysis from previous CVA, a fascia Psychiatric: Normal mood, affect Skin: No rash ED Course Vital Signs 12/12/19 12/12/19 15:00 15:36 Temperature 98.7 F Pulse Rate 107 H Respiratory 15 16 Rate Blood Pressure 109/69 O2 Sat by Pulse 95 Oximetry - Consultations Consultation #1: 12/12/19 19:07 In trying to get ahold a GI for about 10-15 minutes, answering service message stating that they take calls a right now due to volume. We will attempt to retry for consult 12/12/19 17:18 case d/w Dr Yehuda ferro this time. will evaluation pt tomorrow for peg placement ED Medical Decision Making - Lab Data Result diagrams: 12/12/19 15:23 12/12/19 15:23 Lab Results 12/12/19 12/12/19 Range/Units 15:23 15:23 WBC 9.5 (4.5-11.0) K/mm3 RBC 3.95 (3.65-5.03) M/mm3 Hgb 10.7 L (11.8-15.2) gm/dl Hct 32.8 L (35.5-45.6) % MCV 83 L (84-94) fl MCH 27 L (28-32) pg MCHC 33 (32-34) % RDW 16.3 H (13.2-15.2) % Plt Count 395 (140-440) K/mm3 Lymph % (Auto) 39.4 H (13.4-35.0) % [place] % (Auto) 5.0 (0.0-7.3) % Eos % (Auto) 1.2 (0.0-4.3) % Baso % (Auto) 1.2 (0.0-1.8) % Lymph # 3.7 (1.2-5.4) K/mm3 [place] # 0.5 (0.0-0.8) K/mm3 Eos # 0.1 (0.0-0.4) K/mm3 Baso # 0.1 (0.0-0.1) K/mm3 Seg Neutrophils % 53.2 (40.0-70.0) % Seg Neutrophils # 5.0 (1.8-7.7) K/mm3 Sodium 138 (137-145) mmol/L Potassium 4.4 (3.6-5.0) mmol/L Chloride 100.1 (98-107) mmol/L Carbon Dioxide 23 (22-30) mmol/L Anion Gap 19 mmol/L BUN 20 (9-20) mg/dL Creatinine 0.4 L (0.8-1.5) mg/dL Estimated GFR > 60 ml/min BUN/Creatinine Ratio 50 % Glucose 112 H (75-100) mg/dL Calcium 9.9 (8.4-10.2) mg/dL Total Bilirubin 0.30 (0.1-1.2) mg/dL AST 16 (5-40) units/L ALT 25 (7-56) units/L Alkaline Phosphatase 120 (35-129) units/L Total Protein 8.2 (6.3-8.2) g/dL Albumin 3.2 L (3.9-5) g/dL Albumin/Globulin Ratio 0.6 % - Medical Decision Making attempted to probe stoma after being given pain med peg stoma appears closed, pain at site without redness, fever, leukocytosis will admit for gi consult and peg placement Dr sparks/hospitalist informed - Differential Diagnosis peg displaced, infection Critical Care Time: No Critical care attestation.: If time is entered above; I have spent that time in minutes in the direct care of this critically ill patient, excluding procedure time. ED Disposition Clinical Impression: Dislodged gastrostomy tube, Encounter for PEG (percutaneous endoscopic gastrostomy), History of CVA with residual deficit, LUQ abdominal pain Disposition: OP ADMIT IP TO THIS HOSP Is pt being admited?: Yes Condition: Stable Time of Disposition: 17:10 (DR Sparks/hosp)
--- NOTE | 2019-12-12 19:42 | History and Physical Report ---
History of Present Illness Date of examination: 12/12/19 Date of admission: 12/12/19 17:12 Chief complaint: Dislodged G-tube History of present illness: Patient is a 64-year-old male with a past medical history of CVA with residual right sided hemiparesis, hypertension and polysubstance abuse who presents to ER with complaints of a dislodged PEG tube. Reports from [facility] and rehab sts that patient had complaints of abd pain earlier today. History could not be obtained from patient due to aphasia, but he does nod his head to verbal communications. He currenlty denies diarrhea, abdominal pain, fever or chills. Past History Past Medical History: other (As noted in HPI, longterm resident) Past Surgical History: Other (PEG tube) Social history: smoking (x 40 years) Family history: diabetes, hypertension Medications and Allergies Allergies Allergy/AdvReac Type Severity Reaction Status Date / Time No Known Allergies Allergy Unverified 08/01/19 19:30 Home Medications Medication Instructions Recorded Confirmed Last Taken Type Albuterol Sulfate 2.5 mg INHALATION Q2HR PRN 10/14/19 10/17/19 Unknown History Aspirin [Adult Aspirin] 81 mg PO QDAY 10/14/19 10/17/19 Unknown History Atorvastatin Calcium [Lipitor] 40 mg FEEDTUBE QHS 10/14/19 10/17/19 Unknown History Magnesium Oxide 400 mg PO QDAY 10/14/19 10/17/19 Unknown History Methylphenidate HCl 5 mg FEEDTUBE QDAY 10/14/19 10/17/19 Unknown History Metoprolol [Lopressor TAB] 50 mg PO BID 10/14/19 10/14/19 Unknown History Polyethylene Glycol 3350 [Miralax 17 gm PO QDAY 10/14/19 10/14/19 Unknown History 3350] Potassium Chloride 40 meq FEEDTUBE BID 10/14/19 10/17/19 Unknown History Thiamine [Vitamin B-1] 100 mg PO QDAY 10/14/19 10/14/19 Unknown History Vitamin D3 2,000 UNIT CHEW TAB 2,000 units FEEDTUBE DAILY 10/14/19 10/17/19 Unknown History FLUoxetine HCL [Prozac] 20 mg FEEDTUBE QDAY 10/17/19 10/17/19 Unknown History Lisinopril 20 mg FEEDTUBE QDAY 10/17/19 10/17/19 Unknown History Melatonin 5MG TAB 5 mg PO QHS PRN 10/17/19 10/17/19 Unknown History Norvasc 10 mg FEEDTUBE QDAY 10/17/19 10/17/19 Unknown History Ipratropium/Albuterol Sulfate 1 ampul IH Q6HRT #30 ampul.neb 10/19/19 Unknown Rx [DUONEB *Not for PRN Use*] levoFLOXacin [Levaquin] 750 mg PO QDAY #10 tablet 10/19/19 Unknown Rx Docusate Sodium [Colace] 100 mg PO BID #30 capsule 11/01/19 Unknown Rx Sodium Phosphate,[place]-Dibasic 133 ml RC DAILY #3 enema 11/01/19 Unknown Rx [Fleet Enema] Review of Systems ROS unobtainable: due to mental status All systems: negative Cardiovascular: no chest pain, no shortness of breath Respiratory: no pain Gastrointestinal: no abdominal pain Exam - Physical Exam Narrative exam: - Physical Exam Narrative exam: General appearance: Present: No distress noted - EENT Eyes: Present: PERRL ENT: hearing intact, clear oral mucosa - Neck Neck: Present: supple, normal ROM - Respiratory Respiratory effort: normal Respiratory: bilateral: Clear to auscultation - Cardiovascular Heart rate:102 Heart Sounds: Present: S1 & S2. Absent: rub, click - Extremities Extremities: pulses symmetrical, No edema Peripheral Pulses: within normal limits - Abdominal General gastrointestinal: Present: , non-distended, normal bowel sounds genitourinary: Present: normal - Integumentary Integumentary: Present: warm, dry - Musculoskeletal Musculoskeletal: Right-sided weakness - Psychiatric Psychiatric: appropriate mood/affect, intact judgment & insight - Neurologic Neurologic: CNII-XII intact, aphasia - Constitutional Vitals: Temp Pulse Resp BP Pulse Ox 98.7 F 107 H 16 109/69 95 12/12/19 15:00 12/12/19 15:00 12/12/19 15:36 12/12/19 15:00 12/12/19 15:00 Results - Labs CBC & Chem 7: 12/12/19 15:23 12/12/19 15:23 Labs: Laboratory Last Values WBC 9.5 K/mm3 (4.5-11.0) 12/12/19 15:23 RBC 3.95 M/mm3 (3.65-5.03) 12/12/19 15:23 Hgb 10.7 gm/dl (11.8-15.2) L 12/12/19 15:23 Hct 32.8 % (35.5-45.6) L 12/12/19 15:23 MCV 83 fl (84-94) L 12/12/19 15:23 MCH 27 pg (28-32) L 12/12/19 15:23 MCHC 33 % (32-34) 12/12/19 15:23 RDW 16.3 % (13.2-15.2) H 12/12/19 15:23 Plt Count 395 K/mm3 (140-440) 12/12/19 15:23 Lymph % (Auto) 39.4 % (13.4-35.0) H 12/12/19 15:23 [place] % (Auto) 5.0 % (0.0-7.3) 12/12/19 15:23 Eos % (Auto) 1.2 % (0.0-4.3) 12/12/19 15:23 Baso % (Auto) 1.2 % (0.0-1.8) 12/12/19 15:23 Lymph # 3.7 K/mm3 (1.2-5.4) 12/12/19 15:23 [place] # 0.5 K/mm3 (0.0-0.8) 12/12/19 15:23 Eos # 0.1 K/mm3 (0.0-0.4) 12/12/19 15:23 Baso # 0.1 K/mm3 (0.0-0.1) 12/12/19 15:23 Seg Neutrophils % 53.2 % (40.0-70.0) 12/12/19 15:23 Seg Neutrophils # 5.0 K/mm3 (1.8-7.7) 12/12/19 15:23 Sodium 138 mmol/L (137-145) 12/12/19 15:23 Potassium 4.4 mmol/L (3.6-5.0) 12/12/19 15:23 Chloride 100.1 mmol/L (98-107) 12/12/19 15:23 Carbon Dioxide 23 mmol/L (22-30) 12/12/19 15:23 Anion Gap 19 mmol/L 02/09/20 15:23 BUN 20 mg/dL (9-20) 12/12/19 15:23 Creatinine 0.4 mg/dL (0.8-1.5) L 12/12/19 15:23 Estimated GFR > 60 ml/min 12/12/19 15:23 BUN/Creatinine Ratio 50 % 12/12/19 15:23 Glucose 112 mg/dL (75-100) H 12/12/19 15:23 Calcium 9.9 mg/dL (8.4-10.2) 12/12/19 15:23 Total Bilirubin 0.30 mg/dL (0.1-1.2) 12/12/19 15:23 AST 16 units/L (5-40) 12/12/19 15:23 ALT 25 units/L (7-56) 12/12/19 15:23 Alkaline Phosphatase 120 units/L (35-129) 12/12/19 15:23 Total Protein 8.2 g/dL (6.3-8.2) 12/12/19 15:23 Albumin 3.2 g/dL (3.9-5) L 12/12/19 15:23 Albumin/Globulin Ratio 0.6 % 12/12/19 15:23 Assessment and Plan Assessment and plan: Patient is a 64-year-old male with a past medical history of CVA with residual right sided hemiparesis, hypertension and polysubstance abuse who presents to ER with complaints of a dislodged PEG tube. Dislodged gastrostomy tube -GI consulted in ED -previous 16 [place] PEG tube Anemia -chronic -Hb: 10.7 g/dl -Transfuse if needed History of CVA with residual deficit -neuro checks -PT/OT/speech therapy if needed -Balanced diet increase physical activity at discharge. AARON -Cr on admission 0.4 -Hydrate with IVF -Avoid nephrotoxic agents -Renal dose all meds DVT prophylaxis -SCDs bilateral extremities Advance Directives: No VTE prophylaxis?: Chemical Plan of care discussed with patient/family: Yes
[2019-12-12] MEDS ORDERED: ACETAMINOPHEN 325 MG TAB PO PRN (20:45)
[2019-12-12] MEDS ORDERED: ONDANSETRON 4 MG/2 ML INJ IV PRN (20:45)
[2019-12-12] MEDS ORDERED: oxyCODONE /ACETAMINOPHEN 5-325MG TAB PO PRN (20:45)
[2019-12-12] MEDS: SODIUM CHLORIDE 0.9% 1000 ML 1,000 ML IV SCH (22:40)
[2019-12-12] MEDS: FAMOTIDINE 20 MG/2 ML INJ IV SCH (22:40)
--- NOTE | 2019-12-13 09:52 | Progress Note ---
Assessment and Plan Assessment and plan: Patient is a 64-year-old male with a past medical history of CVA with residual right sided hemiparesis, hypertension and polysubstance abuse who presents to ER with complaints of a dislodged PEG tube. sent from [facility] and rehab, per ID he was c/of abdo pain. pt has aphasia, but he does nod his head to verbal communications. 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 Anemia of chronic disease stable History of CVA with residual deficit, and aphasia asa and statin AARON ruled out DVT prophylaxis lovenox Disposition; back to [facility] after PEG tube placement History Interval history: Review of systems Constitutional: No fevers, no malaise, no joint pains CVS: No chest pain, no orthopnea, no pedal edema GI: No abdominal pain, no diarrhea, no vomiting, no constipation Respiratory: , no wheezing, no coughing Hospitalist Physical - Physical exam Narrative exam: General.: Appears well, no distress, nontoxic HEENT: Moist mucous membranes, extraocular muscles intact, no lymphadenopathy Neck: supple Cardiac: S1-S2 heard Lungs: clear to auscultation bilaterally Abdomen: soft , nontender, nondistended, bowel sounds positive Extremities: no edema clubbing or cyanosis Skin: no rash or lesions Neurologic: Expressive aphasia, nods and shakes his head to communicate, left- sided weakness. Psych: calm, and cooperative - Constitutional Vitals: Temp Pulse Resp BP Pulse Ox 98.3 F 99 H 16 119/75 96 12/13/19 05:31 12/13/19 05:31 12/13/19 05:31 12/13/19 05:31 12/13/19 05:31 Results - Labs CBC & Chem 7: 12/12/19 15:23 12/12/19 15:23 Labs: Laboratory Last Values WBC 9.5 K/mm3 (4.5-11.0) 12/12/19 15:23 RBC 3.95 M/mm3 (3.65-5.03) 12/12/19 15:23 Hgb 10.7 gm/dl (11.8-15.2) L 12/12/19 15:23 Hct 32.8 % (35.5-45.6) L 12/12/19 15:23 MCV 83 fl (84-94) L 12/12/19 15:23 MCH 27 pg (28-32) L 12/12/19 15:23 MCHC 33 % (32-34) 12/12/19 15:23 RDW 16.3 % (13.2-15.2) H 12/12/19 15:23 Plt Count 395 K/mm3 (140-440) 12/12/19 15:23 Lymph % (Auto) 39.4 % (13.4-35.0) H 12/12/19 15:23 [place] % (Auto) 5.0 % (0.0-7.3) 12/12/19 15:23 Eos % (Auto) 1.2 % (0.0-4.3) 12/12/19 15: Baso % (Auto) 1.2 % (0.0-1.8) 12/12/19 15:23 Lymph # 3.7 K/mm3 (1.2-5.4) 12/12/19 15:23 [place] # 0.5 K/mm3 (0.0-0.8) 12/12/19 15:23 Eos # 0.1 K/mm3 (0.0-0.4) 12/12/19 15:23 Baso # 0.1 K/mm3 (0.0-0.1) 12/12/19 15:23 Seg Neutrophils % 53.2 % (40.0-70.0) 12/12/19 15: Seg Neutrophils # 5.0 K/mm3 (1.8-7.7) 12/12/19 15:23 Sodium 138 mmol/L (137-145) 12/12/19 15:23 Potassium 4.4 mmol/L (3.6-5.0) 12/12/19 15:23 Chloride 100.1 mmol/L (98-107) 12/12/19 15:23 Carbon Dioxide 23 mmol/L (22-30) 12/12/19 15:23 Anion Gap 19 mmol/L 12/12/19 15:23 BUN 20 mg/dL (9-20) 12/12/19 15:23 Creatinine 0.4 mg/dL (0.8-1.5) L 12/12/19 15:23 Estimated GFR > 60 ml/min 12/12/19 15:23 BUN/Creatinine Ratio 50 % 12/12/19 15:23 Glucose 112 mg/dL (75-100) H 12/12/19 15:23 Calcium 9.9 mg/dL (8.4-10.2) 12/12/19 15:23 Total Bilirubin 0.30 mg/dL (0.1-1.2) 12/12/19 15:23 AST 16 units/L (5-40) 12/12/19 15:23 ALT 25 units/L (7-56) 12/12/19 15:23 Alkaline Phosphatase 120 units/L (35-129) 12/12/19 15:23 Total Protein 8.2 g/dL (6.3-8.2) 12/12/19 15:23 Albumin 3.2 g/dL (3.9-5) L 12/12/19 15:23 Albumin/Globulin Ratio 0.6 % 12/12/19 15:23 Active Medications - Current Medications Current Medications: Generic Name Dose Route Start Last Admin Trade Name Brian PRN Reason Stop Dose Admin Acetaminophen 650 mg 12/12/19 20:45 Tylenol PO Q4H PRN Pain MILD(1-3)/Fever >100.5/MARK Famotidine 20 mg 12/12/19 22:00 12/12/19 22:40 Pepcid IV 20 mg BID [facility] Administration Sodium Chloride 1,000 mls @ 75 mls/hr 12/12/19 20:45 12/12/19 22:40 Nacl 0.9% 1000 Ml IV 75 mls/hr DIRECT [facility] Administration Ondansetron HCl 4 mg 12/12/19 20:45 Zofran IV Q8H PRN Nausea And Vomiting Oxycodone/Acetaminophen 1 tab 12/12/19 20:45 Percocet 5/325 PO Q6H PRN Pain, Moderate (4-6)
[2019-12-13] MEDS ORDERED: ALBUTEROL SULFATE 2.5 MG INHALATION PRN (09:55)
[2019-12-13] MEDS ORDERED: MELATONIN 5 MG PO PRN (09:55)
[2019-12-13] MEDS ORDERED: DOCUSATE SODIUM 100 MG CAP PO SCH (10:00)
[2019-12-13] MEDS ORDERED: NON-FORMULARY EACH (Norvasc 10 MG) FEEDTUBE SCH (10:00)
[2019-12-13] MEDS ORDERED: NON-FORMULARY EACH (Lisinopril 20 MG) FEEDTUBE SCH (10:00)
[2019-12-13] MEDS ORDERED: METOPROLOL TARTRATE 50 MG TAB PO SCH (10:00)
[2019-12-13] MEDS ORDERED: VITAMIN D3 2000 UNIT FEEDTUBE SCH (10:00)
[2019-12-13] MEDS ORDERED: THIAMINE 100 MG TAB PO SCH (10:00)
[2019-12-13] MEDS ORDERED: FLUoxetine 20 MG CAP FEEDTUBE SCH (10:00)
[2019-12-13] MEDS ORDERED: ASPIRIN EC 81 MG TAB PO SCH (10:00)
[2019-12-13] MEDS ORDERED: POLYETHYLENE GLYCOL 3350 17 GM POWDER PO SCH (10:00)
[2019-12-13] MEDS ORDERED: ALBUTEROL 2.5 MG/3 ML NEBU IH PRN (10:17)
[2019-12-13] MEDS: FAMOTIDINE 20 MG/2 ML INJ IV SCH ×2 (11:01→22:02)
--- NOTE | 2019-12-13 11:02 | Gastroenterology Consultation ---
<JHONY HERNANDEZ - Last Filed: 12/13/19 13:00> History of Present Illness - Reason for Consult Consult date: 12/13/19 dislodged PEG Requesting physician: ALEYDA MATUTE - History of Present Illness Patient is a 64 y/o male with PMH of HTN and CVA (residual right sided weakness, aphasia; s/p PEG 08/2019) who was brought to ED from halfway for dislodged PEG to which GI has been consulted. Patient is previously known to our service with last consult 10/2019 for elevated LFTs though to be 2/2 sepsis and dislodged PEG which was replaced (16Fr). This morning patient was resting in bed, noted to be alert, w/o acute distress. Abdomen non-distended with +BS upon exam. Old PEG site w/o redness, swelling, odor, or bleeding but + scant amount of purulent drainage. PEG attempted to be replaced per Dr. Stevenson, however stoma noted to be closed with replacement unsuccessful. Past History Past Medical History: other (As noted in HPI, halfway resident) Past Surgical History: Other (PEG tube) Social history: smoking (x 40 years), other (former ETOH abuse) Family history: diabetes, hypertension Medications and Allergies Allergies Allergy/AdvReac Type Severity Reaction Status Date / Time No Known Allergies Allergy Unverified 08/01/19 19:30 Home Medications Medication Instructions Recorded Confirmed Last Taken Type Albuterol Sulfate 2.5 mg INHALATION Q2HR PRN 10/14/19 10/17/19 Unknown History Aspirin [Adult Aspirin] 81 mg PO QDAY 10/14/19 10/17/19 Unknown History Atorvastatin Calcium [Lipitor] 40 mg FEEDTUBE QHS 10/14/19 10/17/19 Unknown History Magnesium Oxide 400 mg PO QDAY 10/14/19 10/17/19 Unknown History Methylphenidate HCl 5 mg FEEDTUBE QDAY 10/14/19 10/17/19 Unknown History Metoprolol [Lopressor TAB] 50 mg PO BID 10/14/19 10/14/19 Unknown History Polyethylene Glycol 3350 [Miralax 17 gm PO QDAY 10/14/19 10/14/19 Unknown History 3350] Potassium Chloride 40 meq FEEDTUBE BID 10/14/19 10/17/19 Unknown History Thiamine [Vitamin B-1] 100 mg PO QDAY 10/14/19 10/14/19 Unknown History Vitamin D3 2,000 UNIT CHEW TAB 2,000 units FEEDTUBE DAILY 10/14/19 10/17/19 Unknown History FLUoxetine HCL [Prozac] 20 mg FEEDTUBE QDAY 10/17/19 10/17/19 Unknown History Lisinopril 20 mg FEEDTUBE QDAY 10/17/19 10/17/19 Unknown History Melatonin 5MG TAB 5 mg PO QHS PRN 10/17/19 10/17/19 Unknown History Norvasc 10 mg FEEDTUBE QDAY 10/17/19 10/17/19 Unknown History Ipratropium/Albuterol Sulfate 1 ampul IH Q6HRT #30 ampul.neb 10/19/19 Unknown Rx [DUONEB *Not for PRN Use*] levoFLOXacin [Levaquin] 750 mg PO QDAY #10 tablet 10/19/19 Unknown Rx Docusate Sodium [Colace] 100 mg PO BID #30 capsule 11/01/19 Unknown Rx Sodium Phosphate,[place]-Dibasic 133 ml RC DAILY #3 enema 11/01/19 Unknown Rx [Fleet Enema] Active Meds: Active Medications Acetaminophen (Tylenol) 650 mg PO Q4H PRN PRN Reason: Pain MILD(1-3)/Fever >100.5/MARK Albuterol (Proventil) 2.5 mg IH Q3HRT PRN PRN Reason: Shortness Of Breath Albuterol/Ipratropium (Duoneb *Not For Prn Use*) 1 ampul IH Q6HRT [facility] Amlodipine Besylate (Amlodipine) 10 mg FEEDTUBE DAILY [facility] Aspirin (Baby Aspirin) 81 mg FEEDTUBE QDAY [facility] Atorvastatin Calcium (Lipitor) 40 mg FEEDTUBE QHS [facility] Cholecalciferol (Vitamin D3) 2,000 unit FEEDTUBE DAILY [facility] Docusate Sodium (Colace) 100 mg FEEDTUBE BID [facility] Enoxaparin Sodium (Enoxaparin) 40 mg SUB-Q QDAY@2200 [facility] Famotidine (Pepcid) 20 mg IV BID [facility] Last Admin: 12/13/19 11:01 Dose: 20 mg Documented by: Fluoxetine HCl (Prozac) 20 mg FEEDTUBE QDAY [facility] Sodium Chloride (Nacl 0.9% 1000 Ml) 1,000 mls @ 75 mls/hr IV DIRECT [facility] Last Admin: 12/12/19 22:40 Dose: 75 mls/hr Documented by: Lisinopril (Zestril) 20 mg FEEDTUBE QDAY [facility] Melatonin (Melatonin) 5 mg PO QHS PRN PRN Reason: Insomnia Methylphenidate HCl (Ritalin) 5 mg PO QDAY [facility] Metoprolol Tartrate (Metoprolol) 50 mg FEEDTUBE BID [facility] Ondansetron HCl (Zofran) 4 mg IV Q8H PRN PRN Reason: Nausea And Vomiting Oxycodone/Acetaminophen (Percocet 5/325) 1 tab PO Q6H PRN PRN Reason: Pain, Moderate (4-6) Polyethylene Glycol (Miralax 3350) 17 gm FEEDTUBE QDAY [facility] Thiamine HCl (Vitamin B-1) 100 mg FEEDTUBE QDAY [facility] medications reviewed/updated as required Review of Systems - Review of Systems ROS unobtainable: due to mental status Exam - Constitutional Vital Signs: Temp Pulse Resp BP Pulse Ox 98.3 F 99 H 16 119/75 96 12/13/19 05:31 12/13/19 05:31 12/13/19 05:31 12/13/19 05:31 12/13/19 05:31 General appearance: no acute distress - EENT Eyes: PERRL, EOM intact - Respiratory Respiratory effort: normal Respiratory: bilateral: diminished - Cardiovascular Rhythm: regular - Gastrointestinal General gastrointestinal: Present: soft, non-distended, normal bowel sounds - Neurologic Neurological: right side weakness, other (alert, aphasia) - Labs CBC & Chem 7: 12/12/19 15:23 12/12/19 15:23 Lab Results: Laboratory Results - last 24 hr 12/12/19 12/12/19 15:23 15:23 WBC 9.5 RBC 3.95 Hgb 10.7 L Hct 32.8 L MCV 83 L MCH 27 L MCHC 33 RDW 16.3 H Plt Count 395 Lymph % (Auto) 39.4 H [place] % (Auto) 5.0 Eos % (Auto) 1.2 Baso % (Auto) 1.2 Lymph # 3.7 [place] # 0.5 Eos # 0.1 Baso # 0.1 Seg Neutrophils % 53.2 Seg Neutrophils # 5.0 Sodium 138 Potassium 4.4 Chloride 100.1 Carbon Dioxide 23 Anion Gap 19 BUN 20 Creatinine 0.4 L Estimated GFR > 60 BUN/Creatinine Ratio 50 Glucose 112 H Calcium 9.9 Total Bilirubin 0.30 AST 16 ALT 25 Alkaline Phosphatase 120 Total Protein 8.2 Albumin 3.2 L Albumin/Globulin Ratio 0.6 Assessment and Plan 1.dislodged PEG -Dr. Stevenson attempted to replace PEG this am, however unsuccessful with stoma noted to be closed -will schedule for EGD with PEG placement tomorrow -Keep NPO -hold am dose of lovenox; INR in am -continue supportive care -electrolyte management per primary team -will follow <MALICK STEVENSON - Last Filed: 12/13/19 16:35> Medications and Allergies Active Meds: Active Medications Acetaminophen (Tylenol) 650 mg PO Q4H PRN PRN Reason: Pain MILD(1-3)/Fever >100.5/MARK Albuterol (Proventil) 2.5 mg IH Q3HRT PRN PRN Reason: Shortness Of Breath Albuterol/Ipratropium (Duoneb *Not For Prn Use*) 1 ampul IH Q6HRT [facility] Last Admin: 12/13/19 14:32 Dose: 1 ampul Documented by: Amlodipine Besylate (Amlodipine) 10 mg FEEDTUBE DAILY [facility] Last Admin: 12/13/19 11:06 Dose: Not Given Documented by: Aspirin (Baby Aspirin) 81 mg FEEDTUBE QDAY [facility] Last Admin: 12/13/19 11:06 Dose: Not Given Documented by: Atorvastatin Calcium (Lipitor) 40 mg FEEDTUBE QHS [facility] Cholecalciferol (Vitamin D3) 2,000 unit FEEDTUBE DAILY [facility] Last Admin: 12/13/19 11:07 Dose: Not Given Documented by: Docusate Sodium (Colace) 100 mg FEEDTUBE BID [facility] Last Admin: 12/13/19 11:06 Dose: Not Given Documented by: Enoxaparin Sodium (Enoxaparin) 40 mg SUB-Q QDAY@2200 [facility] Famotidine (Pepcid) 20 mg IV BID [facility] Last Admin: 12/13/19 11:01 Dose: 20 mg Documented by: Fluoxetine HCl (Prozac) 20 mg FEEDTUBE QDAY [facility] Last Admin: 12/13/19 12:26 Dose: Not Given Documented by: Sodium Chloride (Nacl 0.9% 1000 Ml) 1,000 mls @ 75 mls/hr IV DIRECT [facility] Last Admin: 12/13/19 11:05 Dose: 75 mls/hr Documented by: Lisinopril (Zestril) 20 mg FEEDTUBE QDAY [facility] Last Admin: 12/13/19 11:07 Dose: Not Given Documented by: Melatonin (Melatonin) 5 mg PO QHS PRN PRN Reason: Insomnia Methylphenidate HCl (Ritalin) 5 mg PO QDAY [facility] Last Admin: 12/13/19 11:06 Dose: Not Given Documented by: Metoprolol Tartrate (Metoprolol) 50 mg FEEDTUBE BID [facility] Last Admin: 12/13/19 11:07 Dose: Not Given Documented by: Ondansetron HCl (Zofran) 4 mg IV Q8H PRN PRN Reason: Nausea And Vomiting Oxycodone/Acetaminophen (Percocet 5/325) 1 tab PO Q6H PRN PRN Reason: Pain, Moderate (4-6) Polyethylene Glycol (Miralax 3350) 17 gm FEEDTUBE QDAY [facility] Last Admin: 12/13/19 11:07 Dose: Not Given Documented by: Thiamine HCl (Vitamin B-1) 100 mg FEEDTUBE QDAY [facility] Last Admin: 12/13/19 11:07 Dose: Not Given Documented by: Exam - Constitutional Vital Signs: Temp Pulse Resp BP Pulse Ox 98.3 F 100 H 18 120/80 90 12/13/19 12:00 12/13/19 14:32 12/13/19 14:32 12/13/19 12:00 12/13/19 12:00 - Labs CBC & Chem 7: 12/12/19 15:23 12/12/19 15:23 Assessment and Plan Patient seen and examined; agree with note above. will plan for egd/peg tube placement tomorrow.
[2019-12-13] MEDS: SODIUM CHLORIDE 0.9% 1000 ML 1,000 ML IV SCH ×2 (11:05→22:20)
[2019-12-13] MEDS: DOCUSATE SODIUM 100 MG/10 ML ORAL LIQD FEEDTUBE SCH ×2 (11:06→22:01)
[2019-12-13] MEDS: amLODIPine 10 MG TAB FEEDTUBE SCH (11:06)
[2019-12-13] MEDS: ASPIRIN 81 MG TAB CHEW FEEDTUBE SCH (11:06)
[2019-12-13] MEDS: METHYLPHENIDATE 5 MG TAB PO SCH (11:06)
[2019-12-13] MEDS: CHOLECALCIFEROL (VIT D3) 1000 UNIT TAB FEEDTUBE SCH (11:07)
[2019-12-13] MEDS: THIAMINE 100 MG TAB FEEDTUBE SCH (11:07)
[2019-12-13] MEDS: METOPROLOL TARTRATE 50 MG TAB FEEDTUBE SCH ×2 (11:07→22:01)
[2019-12-13] MEDS: LISINOPRIL 20 MG TAB FEEDTUBE SCH (11:07)
[2019-12-13] MEDS: POLYETHYLENE GLYCOL 3350 17 GM POWDER FEEDTUBE SCH (11:07)
[2019-12-13] MEDS: FLUoxetine 20 MG/5 ML ORAL LIQD FEEDTUBE SCH (12:26)
[2019-12-13] MEDS: IPRATROPIUM/ALBUTEROL SULFATE 3 ML AMPUL.NEB IH SCH ×2 (14:32→21:35)
[2019-12-13] MEDS ORDERED: MELATONIN 5 MG TAB PO PRN (22:00)
[2019-12-13] MEDS ORDERED: ATORVASTATIN CALCIUM 40 MG FEEDTUBE SCH (22:00)
[2019-12-13] MEDS ORDERED: ENOXAPARIN 40 MG/0.4 ML INJ SUB-Q SCH (22:00)
[2019-12-13] MEDS ORDERED: FAMOTIDINE 20 MG TAB FEEDTUBE SCH (22:00)
[2019-12-14] MEDS: IPRATROPIUM/ALBUTEROL SULFATE 3 ML AMPUL.NEB IH SCH ×3 (03:31→15:03)
[2019-12-14 06:04] LABS: INR 1.15 (0.87-1.13)
[2019-12-14 06:16] LABS: BUN/Creatinine Ratio 30; Blood Urea Nitrogen 9 mg/dL (9-20); Calcium 9.6 mg/dL (8.4-10.2); Hemolysis Index 0
[2019-12-14] MEDS ORDERED: SODIUM CHLORIDE 0.9% 1000 ML 1,000 ML IV SCH (09:00)
[2019-12-14] MEDS ORDERED: ceFAZolin/Water 2 GM/20 ML 2 GM/20 ML SYRINGE IV NR (09:00)
[2019-12-14] MEDS ORDERED: fentaNYL 100 MCG/2 ML INJ ONE (09:17)
[2019-12-14] MEDS ORDERED: propofoL 200 MG/20 ML VIAL IV ONE (09:17)
[2019-12-14] MEDS ORDERED: POTASSIUM CHLORIDE ER 10 MEQ TAB PO SCH (09:30)
--- NOTE | 2019-12-14 09:39 | Anesthesia Consultation ---
Anesthesia Consult and Med Hx Date of service: 12/14/19 - Airway Anesthetic Teeth Evaluation: Poor, Dentures ROM Head & Neck: Adequate Mental/Hyoid Distance: Adequate Mallampati Class: Class II Intubation Access Assessment: Probably Good - Pulmonary Exam CTA: Yes - Pre-Operative Health Status ASA Pre-Surgery Classification: ASA3 Proposed Anesthetic Plan: MAC - Pulmonary Hx Smoking: Yes Hx Asthma: No Hx Respiratory Symptoms: Yes (Hypercarbia) SOB: Yes (Acute Respiratory Failure) COPD: No Hx Pneumonia: No Hx Sleep Apnea: No - Cardiovascular System Hx Hypertension: Yes Hx Coronary Artery Disease: No Hx Heart Attack/AMI: No Hx Angina: No Hx Percutaneous Transluminal Coronary Angioplasty (PTCA): No Hx Pacemaker: No Hx Internal Defibrillator: No Hx Valvular Heart Disease: No Hx Heart Murmur: No Hx Peripheral Vascular Disease: No - Central Nervous System Hx Neuromuscular Disorder: Yes (On account of CVA) Hx Seizures: No CVA: Yes (With right hemiparesis/hemiplegia) Hx Psychiatric Problems: Yes (Major adepressive disorder) - Endocrine Hx Renal Disease: No Hx Liver Disease: No Hx Thyroid Disease: No - Hematic Hx Anemia: Yes (Malnutrition) - Other Systems Hx Alcohol Use: No Hx Substance Use: No Hx Obesity: No - Additional Comments Anesthesia Medical History Comments: Patient denied previous anesthesia complications.
[2019-12-14] MEDS ORDERED: ceFAZolin/Water 2 GM/20 ML 2 GM/20 ML SYRINGE IV ONE (09:43)
--- NOTE | 2019-12-14 09:53 | Anesthesia Day of Surgery ---
Anesthesia Day of Surgery - Day of Surgery Patient Examined: Yes Patient H&P Reviewed: Yes Patient is NPO: Yes
[2019-12-14] MEDS ORDERED: LIDOCAINE MPF (2%) 20 MG/1 ML VIAL 5 ML ONE (10:00)
[2019-12-14] MEDS ORDERED: MAGNESIUM SULFATE 2 GM/50 ML BAG IV ONE (10:00)
--- NOTE | 2019-12-14 10:16 | Operative Report ---
Operative Report Operative Report: Esophagogastroduodenoscopy Procedure Note with PEG tube placement Date of procedure: 12/14/2019 Endoscopist: Edward Stevenson Pre-op diagnosis/indication: Oropharyngeal dysphagia Post-op diagnosis: Successful PEG tube placement MEDICATIONS: MAC, ancef 2 grams IV COMPLICATIONS: No immediate complications ESTIMATED BLOOD LOSS: Minimal DESCRIPTION OF PROCEDURE: After consent was obtained from the patient's , the patient was placed in the supine position. The olympus endoscope was inserted into the patient's mouth under direct vision and advanced to the 2nd portion of the duodenum without difficulty. The patient tolerated the procedure well. The views of the mucosa were good. The patient's vital signs were monitored continuously throughout the procedure. The stomach was transilluminated and an optimal position for the PEG tube was identified using finger indentation and transillumination. The site was sterilized in standard fashion. The skin was infiltrated with local (lidocaine), and incision was made, followed by insertion of needle and sheath through the abdomen and into the stomach. The needle was removed and a guidewire was inserted through the sheath. The guidewire was grasped with a snare and removed completely. A 20 Fr PEG tube was attached to guidewire, then pulled through the mouth and esophagus and snug to the abdominal wall (confirmed by direct endoscopic visualization). FINDINGS: The esophagus appeared normal. The stomach appeared normal. Successful PEG tube placement as above with external bumper at 4 cm. There was erythematous mucosa in the first portion of the duodenum; otherwise, the duodenum appeared normal. IMPRESSION: 1. Successful PEG tube placement as above RECOMMENDATIONS: -okay to use peg tube for medications after 2 hours and can start tube feeds in 6 hours if no new symptoms/complications. -consult nutrition regarding tube feed recommendations -post PEG care daily -keep abdominal binder on at all times
[2019-12-14] MEDS ORDERED: PHENYLEPHRINE/NS 1,000 MCG/10 ML SYRINGE (OR USE) IV ONE (10:43)
--- NOTE | 2019-12-14 11:38 | Post Anesthesia Evaluation ---
- Post Anesthesia Evaluation Patient Participated: Yes Airway Patent: Yes Stable Respiratory Function: Yes Nausea/Vomiting: No Temp > 96.8F: Yes Pain Manageable: Yes Adequeate Hydration: Yes Anesthesia Complications: No Block Receding Appropriately: Not Applicable Patient on Ventilator: No
[2019-12-14] MEDS ORDERED: MORPHINE 2 MG/1 ML INJ IV STA (12:57)
[2019-12-14] MEDS ORDERED: MORPHINE 2 MG/1 ML INJ IM SCH (13:00)
[2019-12-14] MEDS: FAMOTIDINE 20 MG/2 ML INJ IV SCH (13:18)
[2019-12-14] MEDS: DOCUSATE SODIUM 100 MG/10 ML ORAL LIQD FEEDTUBE SCH (13:41)
[2019-12-14] MEDS: THIAMINE 100 MG TAB FEEDTUBE SCH (13:41)
[2019-12-14] MEDS: FLUoxetine 20 MG/5 ML ORAL LIQD FEEDTUBE SCH (13:41)
[2019-12-14] MEDS: METHYLPHENIDATE 5 MG TAB PO SCH (13:41)
[2019-12-14] MEDS: METOPROLOL TARTRATE 50 MG TAB FEEDTUBE SCH (13:41)
[2019-12-14] MEDS: CHOLECALCIFEROL (VIT D3) 1000 UNIT TAB FEEDTUBE SCH (13:41)
[2019-12-14] MEDS: amLODIPine 10 MG TAB FEEDTUBE SCH (13:41)
[2019-12-14] MEDS: ASPIRIN 81 MG TAB CHEW FEEDTUBE SCH (13:42)
[2019-12-14] MEDS ORDERED: SIMPLE SYRUP 15 ML FEEDTUBE PRN ×2 (15:00)
[2019-12-14] MEDS ORDERED: LIPASE 10,500/PROTEASE 25,000/AMYLASE 43,750 (UNITS) DR CAP FEEDTUBE PRN (15:00)
[2019-12-14] MEDS ORDERED: SODIUM BICARBONATE 325 MG TAB FEEDTUBE PRN (15:00)
--- NOTE | 2019-12-14 15:33 | Discharge Summary ---
Providers - Providers Date of Admission: 12/12/19 17:12 Date of discharge: 12/14/19 Attending physician: KRISTIN KELLOGG 12/12/19 17:14 Consult to Physician [CONS] Urgent Comment: DR GIOVANI STANLEY W/DR EGAN @[id number] Consulting Provider: AZEB EGAN Physician Instructions: Reason For Exam: peg dislodged 12/13/19 09:54 Speech Therapy Evaluation and Treat [CONS] Routine Reason For Exam: dysphagia 12/14/19 12:52 Consult to Dietitian/Nutrition [CONS] Stat Physician Instructions: Reason For Exam: Reason for Consult: Write/Manage Tube Feeding Primary care physician: [place], Hospitalization Reason for admission: Dislodged PEG tube Condition: Stable Hospital course: Patient is a 64-year-old male with a past medical history of CVA with residual right sided hemiparesis, hypertension and polysubstance abuse who presents to ER with complaints of a dislodged PEG tube. sent from [facility] and rehab, per [place] he was c/of abdo pain. Patient was evaluated symptomatically managed later GI has seen the patient in consultation. 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 -- Anemia of chronic disease:stable --History of CVA with residual deficit, and aphasia asa and statin --AARON ruled out --DVT prophylaxis: lovenox Disposition; back to [facility] after PEG tube placement Disposition: [id number]/[id number] Time spent for discharge: 33 min Core Measure Documentation - Palliative Care Palliative Care/ Comfort Measures: Not Applicable - Core Measures Any of the following diagnoses?: history only Exam - Constitutional Vitals: Temp Pulse Resp BP Pulse Ox 97.2 F L 75 16 139/85 99 12/14/19 11:25 12/14/19 15:00 12/14/19 15:00 12/14/19 11:25 12/14/19 11:25 General appearance: Present: no acute distress, well-nourished - EENT Eyes: Present: PERRL, EOM intact - Neck Neck: Present: supple, normal ROM - Respiratory Respiratory effort: normal Respiratory: bilateral: diminished, negative: rales, rhonchi, wheezing - Cardiovascular Rhythm: regular Heart Sounds: Present: S1 & S2 - Extremities Extremities: no ischemia, No edema - Abdominal General gastrointestinal: Present: soft, non-tender, non-distended, normal bowel sounds, other (PEG tube in place) - Integumentary Integumentary: Present: clear, warm - Musculoskeletal Musculoskeletal: strength equal bilaterally - Psychiatric Psychiatric: appropriate mood/affect - Neurologic Neurologic: moves all extremities Plan Activity: advance as tolerated, fall precautions Diet: other (Tube feeding per protocol) Special Instructions: physical therapy Additional Instructions: Aspiration precautions. Fall precautions Follow up with: SUSANA RIVAS MD [Primary Care Provider] - 7 Days MALICK NORTON MD [Staff Physician] - 7 Days
[2019-12-14] MEDS: LISINOPRIL 20 MG TAB FEEDTUBE SCH (16:49)
[2019-12-14] MEDS: POLYETHYLENE GLYCOL 3350 17 GM POWDER FEEDTUBE SCH (16:50)
[2019-12-14 16:51] VITALS: BP 124/76
[2019-12-15] MEDS ORDERED: FAMOTIDINE 20 MG TAB FEEDTUBE SCH (10:00)
== END 2019-12-14 18:35 ==
LOC: ED 14:43 → 3A 17:12
PROVIDERS: ADMIT Internal Medicine; ATTEND Internal Medicine
DX: Z43.1 Encounter for attention to gastrostomy (principal); N17.9 Acute kidney failure, unspecified; D64.9 Anemia, unspecified; R10.12 Left upper quadrant pain; F17.200 Nicotine dependence, unspecified, uncomplicated; I11.0 Hypertensive heart disease with heart failure; I50.9 Heart failure, unspecified; E46 Unspecified protein-calorie malnutrition; Z86.73 Personal history of transient ischemic attack (TIA), and cerebral infarction without residual deficits; Z79.82 Long term (current) use of aspirin; Z68.1 Body mass index [BMI] 19.9 or less, adult
CPT/HCPCS: 36415; 43246; 80048; 80053; 83735; 85025; 85610; 92610; 94640; 96365; 96366; 96375; 96376; 99285; G0378; J0690; J1170; J2270; J2370; J2405; J2704; J3010; J3475; J7030